=== PATIENT | female | born 1960 | race Caucasian/White ===

== ENCOUNTER 2020-12-15 10:10 | Outpatient (REF) | payer BC, OTHER, SELFPAY ==
--- NOTE | ~2020-12-15 | MM_ITS ---
EXAMINATION: MM SCREENING DIGITAL BREAST TOMOSYNTHESIS, BILATERAL CLINICAL INFORMATION: Screening. Asymptomatic. The lifetime risk of breast cancer based on the Tyrer-Cuzick Model is 6%. COMPARISON: Mammography: 11/12/2019, 11/06/2018, 08/28/2017 TECHNIQUE: Digital breast tomosynthesis is performed in both the craniocaudal and mediolateral oblique views along with computer-aided detection (CAD). Synthesized 2D images are generated from the tomosynthesis. FINDINGS: There are scattered areas of fibroglandular density (ACR BI-RADS breast composition Category b). There are no significant masses, abnormal calcifications, or other abnormalities. The axilla and skin contours are unremarkable. No significant changes from prior exams. MM/MM tomosynthesis screening BI IMPRESSION: No mammographic evidence of malignancy. ASSESSMENT: BI-RADS 1: Negative RECOMMENDATION: Routine annual mammography screening. This patient's information was entered into a reminder system with a target due date for their next mammogram.
== END 2020-12-15 10:11 | disposition home or self-care (01) ==
LOC: HO.MAMMO 10:10
PROVIDERS: Visit Provider Nurse Practitioner Family
DX: Z12.31 Encounter for screening mammogram for malignant neoplasm of breast (principal)
CPT/HCPCS: 77063; 77067

== ENCOUNTER 2022-01-04 09:48 | Outpatient (REF) | payer OTHER, SELFPAY ==
--- NOTE | ~2022-01-04 | MM_ITS ---
EXAMINATION: MM SCREENING DIGITAL BREAST TOMOSYNTHESIS, BILATERAL CLINICAL INFORMATION: Screening. Asymptomatic. COMPARISON: Mammography: 12/15/2020, 11/12/2019, 11/06/2018 TECHNIQUE: Digital breast tomosynthesis is performed in both the craniocaudal and mediolateral oblique views along with computer-aided detection (CAD). Synthesized 2D images are generated from the tomosynthesis. Additional bilateral CC views are provided. FINDINGS: There are scattered areas of fibroglandular density (ACR BI-RADS breast composition Category b). Parenchymal pattern is similar to prior studies and there is no interval mass or architectural abnormality or developing density. There are bilateral circumferential dermal calcifications or ointment artifact at the base of the nipples. There are no abnormal calcifications in the breast. The axilla are and skin contours are unremarkable. No significant changes. MM/MM tomosynthesis screening BI IMPRESSION: No mammographic evidence of malignancy. ASSESSMENT: BI-RADS 2: Benign RECOMMENDATION: Routine annual mammography screening. This patient's information was entered into a reminder system with a target due date for their next mammogram.
== END 2022-01-04 09:49 | disposition home or self-care (01) ==
LOC: HO.MAMMO 09:48
PROVIDERS: PCP Nurse Practitioner Family; Visit Provider Nurse Practitioner Family
DX: Z12.31 Encounter for screening mammogram for malignant neoplasm of breast (principal)
CPT/HCPCS: 77063; 77067

== ENCOUNTER 2022-04-13 16:52 | Emergency (ER) | payer OTHER, SELFPAY ==
[2022-04-13 17:05] VITALS: BP 139/71; PULSE 115; RESP 18; TEMP 36.7; O2SAT 99; BMI 22.4
--- NOTE | 2022-04-13 17:06 | ED.GENADULT ---
HPI - General Adult General Chief complaint: Nausea/Vomiting/Diarrhea <SHAHIDA Vega - Last Filed: 04/13/22 17:08> Stated complaint: diabetic/ vomiting <SHAHIDA Vega - Last Filed: 04/13/22 17:08> Time Seen by Provider: 04/13/22 19:54 <SHAHIDA Vega - Last Filed: 04/13/22 17:08> Source: patient and family (Daughter) <Corinne Haney MD - Last Filed: 04/13/22 23:01> Mode of arrival: ambulatory <Corinne Haney MD - Last Filed: 04/13/22 23:01> Limitations: no limitations <Corinne Haney MD - Last Filed: 04/13/22 23:01> History of Present Illness HPI narrative: 61-year-old female history of insulin-dependent diabetes type 1 controlled with insulin Lantus at nighttime and Humalog as sliding scale. Patient sometimes after she eats feels the food stuck in her lower esophagus then she started to throw up patient has vomited repeatedly today with multiple bowel movement was formed stool and normal color as reported by the patient, patient emergency room found to be hyperglycemic patient's symptoms started to improve while she was in the waiting room and fluid was found no more nausea or vomiting, no abdominal pain. <Corinne Haney MD - Last Filed: 04/13/22 23:01> Related Data Allergies/adverse reactions: Allergies Allergy/AdvReac Type Severity Reaction Status Date / Time No Known Allergies Allergy Verified 04/13/22 17:12 <SHAHIDA Vega - Last Filed: 04/13/22 17:08> Review of Systems Review of Systems: All other systems are reviewed and are negative Constitutional: Reports as per HPI and Reports no additional constitutional complaints Eyes: Reports as per HPI and Reports no additional eye complaints Reports system reviewed and no additional complaints, except as documented Cardiovascular: Reports as per HPI and Reports no additional cardiovascular complaints Respiratory: Reports as per HPI and Reports no additional respiratory complaints Gastrointestinal: Reports as per HPI and Reports no additional gastrointestinal complaints Genitourinary: Reports no additional female genitourinary complaints Musculoskeletal: Reports no additional musculoskeletal complaints Skin/Breast: Reports system reviewed and no additional complaints, except as docu Psychiatric: Reports no additional psychiatric complaints Endocrine: Reports no additional endocrine complaints Hematologic/Lymphatic: Reports no additional hematologic/lymphatic complaints Allergic/Immunologic: Reports no additional allergic/immunologic complaints Reports system reviewed and no additional complaints, except as documented and Reports Abnormal speech present <Corinne Haney MD - Last Filed: 04/13/22 23:01> [facility] Social History Social History: Social History Alcohol intake: current Alcohol intake frequency: holidays/special occasions only Smoked in Last 30 Days: No Use of substances other than those prescribed or required for medical reasons: No Advance Directives: No Advance Directives Information Provided: No <SHAHIDA Vega - Last Filed: 04/13/22 17:08> Physical Exam ED Vital Signs: Vital Signs - 24 hr 04/13/22 17:05 Temperature 98.1 F Pulse Rate 115 H Respiratory Rate 18 Blood Pressure 139/71 Pulse Oximetry 99 Oxygen Delivery Method Room Air BMI result Body Mass Index 22.4 <SHAHIDA Vega - Last Filed: 04/13/22 17:08> Vital Signs - 24 hr 04/13/22 17:05 Temperature 98.1 F Pulse Rate 115 H Respiratory Rate 18 Blood Pressure 139/71 Pulse Oximetry 99 Oxygen Delivery Method Room Air BMI result Body Mass Index 22.4 Vital signs have been reviewed as appeared to be correct. Blood pressure normal. Heart rate normal. Respiration rate normal. Temperature normal. Oxygen saturation normal. <Corinne Haney MD - Last Filed: 04/13/22 23:01> Appearance: Alert. Oriented X3. No acute distress. Head: Normal external exam. Normocephalic. Atraumatic. No Bower signs noted. No raccoon eyes noted Eyes: PERRLA. EOMI. Conjunctiva and sclera normal. Eyelids normal. ENT: TM's Normal. Pharynx normal. Uvula midline. Moist mucous membranes. No trismus noted. No drooling noted. No muffled voice noted. Neck: Normal inspection. Neck supple. FROM. No adenopathy. Thyroid Normal. No meningeal signs. No neck mass noted. CVS: Normal heart rate and rhythm. Heart sound normal. No murmurs noted. Pulses normal throughout. Respiratory: No respiratory distress. Painless inspiration. Breath sounds normal. No wheezes/rales/rhonchi noted. Chest nontender. No accessory muscle usage noted or decreased air movement noted. Abdomen: Soft and nontender. Bowel sounds normal in all 4 quadrants. No distention noted. No organomegaly noted. No visible injury noted. Back: No CVA tenderness. Full range of motion noted. Skin: Skin warm and dry. Normal skin color. Normal skin turgor. No rashes/lesions/lacerations noted. Extremities: No lower extremity edema. Extremities exhibit normal range of motion. Extremities nontender. Neuro: Oriented X 3. Cranial nerve exam: II-XII are grossly intact No motor deficit. No sensory deficit. Reflexes normal. <Corinne Haney MD - Last Filed: 04/13/22 23:01> Course Course Course Narrative: This is an RME: Additional HPI, ROS, PE not included below will be deferred to primary provider. This is a 63 female history of diabetes presenting the emergency department with nausea, vomiting, frequent bowel habits x1 day. Has had at least 10 episodes of vomiting, reports bilious vomiting. Unable to keep anything down. No known sick contacts. Patient reporting chills however denies fevers. Denies chest pain, shortness of breath. Patient does have a history of diabetic ketoacidosis. Physical examination benign Plan labs, urine, COVID, influenza. Will obtain VBG in acetone as patient does have a history of diabetic ketoacidosis <SHAHIDA Vega - Last Filed: 04/13/22 17:08> Reevaluation(s) Reevaluation #1: 61-year-old female type 1 insulin-dependent diabetes came in with failing food stuck in her epigastric area followed by vomiting at home, had elevated blood sugar with no DKA, hyperglycemia was improved by 2 L of IV fluids given in the ED no insulin was administrated, patient's symptoms improved no nausea, no vomiting able to tolerate p.o. intake. Patient will need GI evaluation for diabetic gastric paresis. <Corinne Haney MD - Last Filed: 04/13/22 23:01> Medications Administered Discontinued Medications Generic Name Dose Route Start Last Admin Trade Name Freq PRN Reason Stop Dose Admin Sodium Chloride 1,000 mls @ 999 mls/hr 04/13/22 17:15 04/13/22 19:51 Ns IV 04/13/22 18:15 999 mls/hr .Q1H1M ROLA Administration Sodium Chloride 1,000 mls @ 999 mls/hr 04/13/22 20:15 04/13/22 20:47 Ns IV 04/13/22 21:15 999 mls/hr .Q1H1M ONE Administration Insulin Human Regular 10 unit 04/13/22 20:15 04/13/22 20:48 Insulin Regular, Human 100 Unit/Ml 3 Ml Vial IVPUSH 04/13/22 20:16 Not Given ONCE ONE Ondansetron HCl 4 mg 04/13/22 17:06 04/13/22 19:38 Ondansetron Odt 4 Mg Tab.Rapdis TRANSLINGU 04/13/22 17:07 4 mg ONCE ONE Administration <SHAHIDA Vega - Last Filed: 04/13/22 17:08> Medications Administered Discontinued Medications Generic Name Dose Route Start Last Admin Trade Name Seeq PRN Reason Stop Dose Admin Sodium Chloride 1,000 mls @ 999 mls/hr 04/13/22 17:15 04/13/22 19:51 Ns IV 04/13/22 18:15 999 mls/hr .Q1H1M ROLA Administration Sodium Chloride 1,000 mls @ 999 mls/hr 04/13/22 20:15 04/13/22 20:47 Ns IV 04/13/22 21:15 999 mls/hr .Q1H1M ONE Administration Insulin Human Regular 10 unit 04/13/22 20:15 04/13/22 20:48 Insulin Regular, Human 100 Unit/Ml 3 Ml Vial IVPUSH 04/13/22 20:16 Not Given ONCE ONE Ondansetron HCl 4 mg 04/13/22 17:06 04/13/22 19:38 Ondansetron Odt 4 Mg Tab.Rapdis TRANSLINGU 04/13/22 17:07 4 mg ONCE ONE Administration <Corinne Haney MD - Last Filed: 04/13/22 23:01> Medical Decision Making Differential Diagnosis Differential Diagnoses: The differential diagnosis associated with the presentation includes (Hyperglycemia, DKA, ACS, diabetic gastroparesis, dehydration, electrolyte disturbance, UTI.) <Corinne Haney MD - Last Filed: 04/13/22 23:01> Lab Data [facility] Lab Attestation statement: I reviewed the patient's lab results. <Corinne Haney MD - Last Filed: 04/13/22 23:01> Result Diagrams: 04/13/22 19:04 04/13/22 19:04 <SHAHIDA Vega - Last Filed: 04/13/22 17:08> Labs: Lab Results 04/13/22 04/13/22 04/13/22 Range/Units 19:04 19:04 19:04 WBC 15.2 H (4.8-10.8) X10*3/uL RBC 4.85 (4.20-5.50) X10*6/uL Hgb 14.7 (12.0-16.0) g/dl Hct 42.3 (37.0-47.0) % MCV 87.2 (80.0-98.0) fL MCH 30.3 (27.0-33.0) pg MCHC 34.8 (31.0-35.0) g/dl RDW 11.5 (11.0-16.0) % Plt Count 357 (160-400) X10*3/uL MPV 9.7 (9.4-12.3) fL Immature Gran % (Auto) 0.5 H (0.0-0.4) % Neut % (Auto) 89.0 H (45-73) % Lymph % (Auto) 6.6 L (20-40) % [place] % (Auto) 3.6 (2-11) % Eos % (Auto) 0.0 (0-4) % Baso % (Auto) 0.3 (0-2) % Lymph # (Auto) 1.0 L (1.2-4.9) X10*3/uL [place] # (Auto) 0.6 (0.1-1.2) X10*3/uL Eos # (Auto) 0.0 (0.0-0.4) X10*3/uL Baso # (Auto) 0.1 (0.0-0.2) X10*3/uL Abs Immat Gran (auto) 0.07 H (0.00-0.03) X10*3/uL Absolute Neuts (auto) 13.5 H (2.0-8.3) x10*3/uL Absolute Nucleated RBC 0.000 (0.0-0.012) X10*3/uL Nucleated RBC % (auto) 0.0 (0.0-0.2) /100WBC VBG pH (7.32-7.43) VBG pCO2 mmHg VBG pO2 mmHg VBG HCO3 (22-26) mmol/L VBG O2 Saturation % VBG Base Excess mmol/L Sodium 141 (135-145) mmol/L Potassium 4.7 (3.3-5.1) mmol/L Chloride 98 (96-108) mmol/L Carbon Dioxide 25 (22-29) mmol/L Anion Gap 23 H (12-20) BUN 17 H (9-16) mg/dL Creatinine 1.14 (0.5-1.4) mg/dL Estim Creat Clear Calc 39.5 Estimated GFR 49 POC Glucose (60-115) mg/dL Random Glucose 360 H* (60-115) mg/dL Calcium 10.2 (8.4-10.2) mg/dL Magnesium 1.9 (1.6-2.6) mg/dL Total Bilirubin 0.7 (0.0-1.0) mg/dL AST 31 (5-31) U/L ALT 38 H (0-31) U/L Alkaline Phosphatase 103 (39-117) U/L Troponin I High Sens (<3.5-17.0) ng/L Total Protein 7.5 (6.5-8.0) g/dL Albumin 4.7 (3.5-5.0) g/dL Urine Color Urine Appearance Urine pH (5.0-9.0) Ur Specific [place] (1.005-1.025) Urine Protein (Neg-Trace) mg/dL Urine Glucose (UA) (Negative) mg/dL Urine Ketones (Negative) mg/dL Urine Blood (Negative) Urine Nitrite (Negative) Ur Leukocyte Esterase (Negative) Urine RBC (0-2) /HPF Urine WBC (0-5) /HPF Ur Squamous Epith Cells (0-2) /HPF Urine Bacteria (None Seen) Hyaline Casts (0-2) /LPF Acetone, Qual (Negative) COVID-19 (RAFFAELE) (Negative) COVID-19 Clin Com Influenza Type A (REINALDO) Negative (Negative) Influenza Type B (REINALDO) Negative (Negative) Influenza A & B Note See Note 04/13/22 04/13/22 04/13/22 Range/Units 19:04 19:04 19:12 WBC (4.8-10.8) X10*3/uL RBC (4.20-5.50) X10*6/uL Hgb (12.0-16.0) g/dl Hct (37.0-47.0) % MCV (80.0-98.0) fL MCH (27.0-33.0) pg MCHC (31.0-35.0) g/dl RDW (11.0-16.0) % Plt Count (160-400) X10*3/uL MPV (9.4-12.3) fL Immature Gran % (Auto) (0.0-0.4) % Neut % (Auto) (45-73) % Lymph % (Auto) (20-40) % [place] % (Auto) (2-11) % Eos % (Auto) (0-4) % Baso % (Auto) (0-2) % Lymph # (Auto) (1.2-4.9) X10*3/uL [place] # (Auto) (0.1-1.2) X10*3/uL Eos # (Auto) (0.0-0.4) X10*3/uL Baso # (Auto) (0.0-0.2) X10*3/uL Abs Immat Gran (auto) (0.00-0.03) X10*3/uL Absolute Neuts (auto) (2.0-8.3) x10*3/uL Absolute Nucleated RBC (0.0-0.012) X10*3/uL Nucleated RBC % (auto) (0.0-0.2) /100WBC VBG pH 7.35 (7.32-7.43) VBG pCO2 42 mmHg VBG pO2 40 mmHg VBG HCO3 23 (22-26) mmol/L VBG O2 Saturation 62.0 % VBG Base Excess -1.7 mmol/L Sodium (135-145) mmol/L Potassium (3.3-5.1) mmol/L Chloride (96-108) mmol/L Carbon Dioxide (22-29) mmol/L Anion Gap (12-20) BUN (9-16) mg/dL Creatinine (0.5-1.4) mg/dL Estim Creat Clear Calc Estimated GFR POC Glucose (60-115) mg/dL Random Glucose (60-115) mg/dL Calcium (8.4-10.2) mg/dL Magnesium (1.6-2.6) mg/dL Total Bilirubin (0.0-1.0) mg/dL AST (5-31) U/L ALT (0-31) U/L Alkaline Phosphatase (39-117) U/L Troponin I High Sens (<3.5-17.0) ng/L Total Protein (6.5-8.0) g/dL Albumin (3.5-5.0) g/dL Urine Color Urine Appearance Urine pH (5.0-9.0) Ur Specific [place] (1.005-1.025) Urine Protein (Neg-Trace) mg/dL Urine Glucose (UA) (Negative) mg/dL Urine Ketones (Negative) mg/dL Urine Blood (Negative) Urine Nitrite (Negative) Ur Leukocyte Esterase (Negative) Urine RBC (0-2) /HPF Urine WBC (0-5) /HPF Ur Squamous Epith Cells (0-2) /HPF Urine Bacteria (None Seen) Hyaline Casts (0-2) /LPF Acetone, Qual Small H (Negative) COVID-19 (RAFFAELE) Negative (Negative) COVID-19 Clin Com See Note Influenza Type A (REINALDO) (Negative) Influenza Type B (REINALDO) (Negative) Influenza A & B Note 04/13/22 04/13/22 04/13/22 Range/Units 19:59 20:41 20:42 WBC (4.8-10.8) X10*3/uL RBC (4.20-5.50) X10*6/uL Hgb (12.0-16.0) g/dl Hct (37.0-47.0) % MCV (80.0-98.0) fL MCH (27.0-33.0) pg MCHC (31.0-35.0) g/dl RDW (11.0-16.0) % Plt Count (160-400) X10*3/uL MPV (9.4-12.3) fL Immature Gran % (Auto) (0.0-0.4) % Neut % (Auto) (45-73) % Lymph % (Auto) (20-40) % [place] % (Auto) (2-11) % Eos % (Auto) (0-4) % Baso % (Auto) (0-2) % Lymph # (Auto) (1.2-4.9) X10*3/uL [place] # (Auto) (0.1-1.2) X10*3/uL Eos # (Auto) (0.0-0.4) X10*3/uL Baso # (Auto) (0.0-0.2) X10*3/uL Abs Immat Gran (auto) (0.00-0.03) X10*3/uL Absolute Neuts (auto) (2.0-8.3) x10*3/uL Absolute Nucleated RBC (0.0-0.012) X10*3/uL Nucleated RBC % (auto) (0.0-0.2) /100WBC VBG pH (7.32-7.43) VBG pCO2 mmHg VBG pO2 mmHg VBG HCO3 (22-26) mmol/L VBG O2 Saturation % VBG Base Excess mmol/L Sodium (135-145) mmol/L Potassium (3.3-5.1) mmol/L Chloride (96-108) mmol/L Carbon Dioxide (22-29) mmol/L Anion Gap (12-20) BUN (9-16) mg/dL Creatinine (0.5-1.4) mg/dL Estim Creat Clear Calc Estimated GFR POC Glucose 261 H (60-115) mg/dL Random Glucose (60-115) mg/dL Calcium (8.4-10.2) mg/dL Magnesium (1.6-2.6) mg/dL Total Bilirubin (0.0-1.0) mg/dL AST (5-31) U/L ALT (0-31) U/L Alkaline Phosphatase (39-117) U/L Troponin I High Sens < 3.5 (<3.5-17.0) ng/L Total Protein (6.5-8.0) g/dL Albumin (3.5-5.0) g/dL Urine Color Yellow Urine Appearance Clear Urine pH 5.0 (5.0-9.0) Ur Specific [place] >= 1.030 H (1.005-1.025) Urine Protein Negative (Neg-Trace) mg/dL Urine Glucose (UA) >=1000 H (Negative) mg/dL Urine Ketones 80 (Negative) mg/dL Urine Blood Negative (Negative) Urine Nitrite Negative (Negative) Ur Leukocyte Esterase Negative (Negative) Urine RBC 3-5 H (0-2) /HPF Urine WBC 0-5 (0-5) /HPF Ur Squamous Epith Cells 0-2 (0-2) /HPF Urine Bacteria None Seen (None Seen) Hyaline Casts 0-2 (0-2) /LPF Acetone, Qual (Negative) COVID-19 (RAFFAELE) (Negative) COVID-19 Clin Com Influenza Type A (REINALDO) (Negative) Influenza Type B (REINALDO) (Negative) Influenza A & B Note 04/13/22 Range/Units 22:00 WBC (4.8-10.8) X10*3/uL RBC (4.20-5.50) X10*6/uL Hgb (12.0-16.0) g/dl Hct (37.0-47.0) % MCV (80.0-98.0) fL MCH (27.0-33.0) pg MCHC (31.0-35.0) g/dl RDW (11.0-16.0) % Plt Count (160-400) X10*3/uL MPV (9.4-12.3) fL Immature Gran % (Auto) (0.0-0.4) % Neut % (Auto) (45-73) % Lymph % (Auto) (20-40) % [place] % (Auto) (2-11) % Eos % (Auto) (0-4) % Baso % (Auto) (0-2) % Lymph # (Auto) (1.2-4.9) X10*3/uL [place] # (Auto) (0.1-1.2) X10*3/uL Eos # (Auto) (0.0-0.4) X10*3/uL Baso # (Auto) (0.0-0.2) X10*3/uL Abs Immat Gran (auto) (0.00-0.03) X10*3/uL Absolute Neuts (auto) (2.0-8.3) x10*3/uL Absolute Nucleated RBC (0.0-0.012) X10*3/uL Nucleated RBC % (auto) (0.0-0.2) /100WBC VBG pH (7.32-7.43) VBG pCO2 mmHg VBG pO2 mmHg VBG HCO3 (22-26) mmol/L VBG O2 Saturation % VBG Base Excess mmol/L Sodium 139 (135-145) mmol/L Potassium 3.9 (3.3-5.1) mmol/L Chloride 104 (96-108) mmol/L Carbon Dioxide 23 (22-29) mmol/L Anion Gap 16 (12-20) BUN 12 (9-16) mg/dL Creatinine 0.74 (0.5-1.4) mg/dL Estim Creat Clear Calc 60.9 Estimated GFR > 60 POC Glucose (60-115) mg/dL Random Glucose 214 H (60-115) mg/dL Calcium 8.1 L D (8.4-10.2) mg/dL Magnesium (1.6-2.6) mg/dL Total Bilirubin (0.0-1.0) mg/dL AST (5-31) U/L ALT (0-31) U/L Alkaline Phosphatase (39-117) U/L Troponin I High Sens (<3.5-17.0) ng/L Total Protein (6.5-8.0) g/dL Albumin (3.5-5.0) g/dL Urine Color Urine Appearance Urine pH (5.0-9.0) Ur Specific [place] (1.005-1.025) Urine Protein (Neg-Trace) mg/dL Urine Glucose (UA) (Negative) mg/dL Urine Ketones (Negative) mg/dL Urine Blood (Negative) Urine Nitrite (Negative) Ur Leukocyte Esterase (Negative) Urine RBC (0-2) /HPF Urine WBC (0-5) /HPF Ur Squamous Epith Cells (0-2) /HPF Urine Bacteria (None Seen) Hyaline Casts (0-2) /LPF Acetone, Qual Small H (Negative) COVID-19 (RAFFAELE) (Negative) COVID-19 Clin Com Influenza Type A (REINALDO) (Negative) Influenza Type B (REINALDO) (Negative) Influenza A & B Note <SHAHIDA Vega - Last Filed: 04/13/22 17:08> Lab Results 04/13/22 04/13/22 04/13/22 Range/Units 19:04 19:04 19:04 WBC 15.2 H (4.8-10.8) X10*3/uL RBC 4.85 (4.20-5.50) X10*6/uL Hgb 14.7 (12.0-16.0) g/dl Hct 42.3 (37.0-47.0) % MCV 87.2 (80.0-98.0) fL MCH 30.3 (27.0-33.0) pg MCHC 34.8 (31.0-35.0) g/dl RDW 11.5 (11.0-16.0) % Plt Count 357 (160-400) X10*3/uL MPV 9.7 (9.4-12.3) fL Immature Gran % (Auto) 0.5 H (0.0-0.4) % Neut % (Auto) 89.0 H (45-73) % Lymph % (Auto) 6.6 L (20-40) % [place] % (Auto) 3.6 (2-11) % Eos % (Auto) 0.0 (0-4) % Baso % (Auto) 0.3 (0-2) % Lymph # (Auto) 1.0 L (1.2-4.9) X10*3/uL [place] # (Auto) 0.6 (0.1-1.2) X10*3/uL Eos # (Auto) 0.0 (0.0-0.4) X10*3/uL Baso # (Auto) 0.1 (0.0-0.2) X10*3/uL Abs Immat Gran (auto) 0.07 H (0.00-0.03) X10*3/uL Absolute Neuts (auto) 13.5 H (2.0-8.3) x10*3/uL Absolute Nucleated RBC 0.000 (0.0-0.012) X10*3/uL Nucleated RBC % (auto) 0.0 (0.0-0.2) /100WBC VBG pH (7.32-7.43) VBG pCO2 mmHg VBG pO2 mmHg VBG HCO3 (22-26) mmol/L VBG O2 Saturation % VBG Base Excess mmol/L Sodium 141 (135-145) mmol/L Potassium 4.7 (3.3-5.1) mmol/L Chloride 98 (96-108) mmol/L Carbon Dioxide 25 (22-29) mmol/L Anion Gap 23 H (12-20) BUN 17 H (9-16) mg/dL Creatinine 1.14 (0.5-1.4) mg/dL Estim Creat Clear Calc 39.5 Estimated GFR 49 POC Glucose (60-115) mg/dL Random Glucose 360 H* (60-115) mg/dL Calcium 10.2 (8.4-10.2) mg/dL Magnesium 1.9 (1.6-2.6) mg/dL Total Bilirubin 0.7 (0.0-1.0) mg/dL AST 31 (5-31) U/L ALT 38 H (0-31) U/L Alkaline Phosphatase 103 (39-117) U/L Troponin I High Sens (<3.5-17.0) ng/L Total Protein 7.5 (6.5-8.0) g/dL Albumin 4.7 (3.5-5.0) g/dL Urine Color Urine Appearance Urine pH (5.0-9.0) Ur Specific [place] (1.005-1.025) Urine Protein (Neg-Trace) mg/dL Urine Glucose (UA) (Negative) mg/dL Urine Ketones (Negative) mg/dL Urine Blood (Negative) Urine Nitrite (Negative) Ur Leukocyte Esterase (Negative) Urine RBC (0-2) /HPF Urine WBC (0-5) /HPF Ur Squamous Epith Cells (0-2) /HPF Urine Bacteria (None Seen) Hyaline Casts (0-2) /LPF Acetone, Qual (Negative) COVID-19 (RAFFAELE) (Negative) COVID-19 Clin Com Influenza Type A (REINALDO) Negative (Negative) Influenza Type B (REINALDO) Negative (Negative) Influenza A & B Note See Note 04/13/22 04/13/22 04/13/22 Range/Units 19:04 19:04 19:12 WBC (4.8-10.8) X10*3/uL RBC (4.20-5.50) X10*6/uL Hgb (12.0-16.0) g/dl Hct (37.0-47.0) % MCV (80.0-98.0) fL MCH (27.0-33.0) pg MCHC (31.0-35.0) g/dl RDW (11.0-16.0) % Plt Count (160-400) X10*3/uL MPV (9.4-12.3) fL Immature Gran % (Auto) (0.0-0.4) % Neut % (Auto) (45-73) % Lymph % (Auto) (20-40) % [place] % (Auto) (2-11) % Eos % (Auto) (0-4) % Baso % (Auto) (0-2) % Lymph # (Auto) (1.2-4.9) X10*3/uL [place] # (Auto) (0.1-1.2) X10*3/uL Eos # (Auto) (0.0-0.4) X10*3/uL Baso # (Auto) (0.0-0.2) X10*3/uL Abs Immat Gran (auto) (0.00-0.03) X10*3/uL Absolute Neuts (auto) (2.0-8.3) x10*3/uL Absolute Nucleated RBC (0.0-0.012) X10*3/uL Nucleated RBC % (auto) (0.0-0.2) /100WBC VBG pH 7.35 (7.32-7.43) VBG pCO2 42 mmHg VBG pO2 40 mmHg VBG HCO3 23 (22-26) mmol/L VBG O2 Saturation 62.0 % VBG Base Excess -1.7 mmol/L Sodium (135-145) mmol/L Potassium (3.3-5.1) mmol/L Chloride (96-108) mmol/L Carbon Dioxide (22-29) mmol/L Anion Gap (12-20) BUN (9-16) mg/dL Creatinine (0.5-1.4) mg/dL Estim Creat Clear Calc Estimated GFR POC Glucose (60-115) mg/dL Random Glucose (60-115) mg/dL Calcium (8.4-10.2) mg/dL Magnesium (1.6-2.6) mg/dL Total Bilirubin (0.0-1.0) mg/dL AST (5-31) U/L ALT (0-31) U/L Alkaline Phosphatase (39-117) U/L Troponin I High Sens (<3.5-17.0) ng/L Total Protein (6.5-8.0) g/dL Albumin (3.5-5.0) g/dL Urine Color Urine Appearance Urine pH (5.0-9.0) Ur Specific [place] (1.005-1.025) Urine Protein (Neg-Trace) mg/dL Urine Glucose (UA) (Negative) mg/dL Urine Ketones (Negative) mg/dL Urine Blood (Negative) Urine Nitrite (Negative) Ur Leukocyte Esterase (Negative) Urine RBC (0-2) /HPF Urine WBC (0-5) /HPF Ur Squamous Epith Cells (0-2) /HPF Urine Bacteria (None Seen) Hyaline Casts (0-2) /LPF Acetone, Qual Small H (Negative) COVID-19 (RAFFAELE) Negative (Negative) COVID-19 Clin Com See Note Influenza Type A (REINALDO) (Negative) Influenza Type B (REINALDO) (Negative) Influenza A & B Note 04/13/22 04/13/22 04/13/22 Range/Units 19:59 20:41 20:42 WBC (4.8-10.8) X10*3/uL RBC (4.20-5.50) X10*6/uL Hgb (12.0-16.0) g/dl Hct (37.0-47.0) % MCV (80.0-98.0) fL MCH (27.0-33.0) pg MCHC (31.0-35.0) g/dl RDW (11.0-16.0) % Plt Count (160-400) X10*3/uL MPV (9.4-12.3) fL Immature Gran % (Auto) (0.0-0.4) % Neut % (Auto) (45-73) % Lymph % (Auto) (20-40) % [place] % (Auto) (2-11) % Eos % (Auto) (0-4) % Baso % (Auto) (0-2) % Lymph # (Auto) (1.2-4.9) X10*3/uL [place] # (Auto) (0.1-1.2) X10*3/uL Eos # (Auto) (0.0-0.4) X10*3/uL Baso # (Auto) (0.0-0.2) X10*3/uL Abs Immat Gran (auto) (0.00-0.03) X10*3/uL Absolute Neuts (auto) (2.0-8.3) x10*3/uL Absolute Nucleated RBC (0.0-0.012) X10*3/uL Nucleated RBC % (auto) (0.0-0.2) /100WBC VBG pH (7.32-7.43) VBG pCO2 mmHg VBG pO2 mmHg VBG HCO3 (22-26) mmol/L VBG O2 Saturation % VBG Base Excess mmol/L Sodium (135-145) mmol/L Potassium (3.3-5.1) mmol/L Chloride (96-108) mmol/L Carbon Dioxide (22-29) mmol/L Anion Gap (12-20) BUN (9-16) mg/dL Creatinine (0.5-1.4) mg/dL Estim Creat Clear Calc Estimated GFR POC Glucose 261 H (60-115) mg/dL Random Glucose (60-115) mg/dL Calcium (8.4-10.2) mg/dL Magnesium (1.6-2.6) mg/dL Total Bilirubin (0.0-1.0) mg/dL AST (5-31) U/L ALT (0-31) U/L Alkaline Phosphatase (39-117) U/L Troponin I High Sens < 3.5 (<3.5-17.0) ng/L Total Protein (6.5-8.0) g/dL Albumin (3.5-5.0) g/dL Urine Color Yellow Urine Appearance Clear Urine pH 5.0 (5.0-9.0) Ur Specific [place] >= 1.030 H (1.005-1.025) Urine Protein Negative (Neg-Trace) mg/dL Urine Glucose (UA) >=1000 H (Negative) mg/dL Urine Ketones 80 (Negative) mg/dL Urine Blood Negative (Negative) Urine Nitrite Negative (Negative) Ur Leukocyte Esterase Negative (Negative) Urine RBC 3-5 H (0-2) /HPF Urine WBC 0-5 (0-5) /HPF Ur Squamous Epith Cells 0-2 (0-2) /HPF Urine Bacteria None Seen (None Seen) Hyaline Casts 0-2 (0-2) /LPF Acetone, Qual (Negative) COVID-19 (RAFFAELE) (Negative) COVID-19 Clin Com Influenza Type A (REINALDO) (Negative) Influenza Type B (REINALDO) (Negative) Influenza A & B Note 04/13/22 Range/Units 22:00 WBC (4.8-10.8) X10*3/uL RBC (4.20-5.50) X10*6/uL Hgb (12.0-16.0) g/dl Hct (37.0-47.0) % MCV (80.0-98.0) fL MCH (27.0-33.0) pg MCHC (31.0-35.0) g/dl RDW (11.0-16.0) % Plt Count (160-400) X10*3/uL MPV (9.4-12.3) fL Immature Gran % (Auto) (0.0-0.4) % Neut % (Auto) (45-73) % Lymph % (Auto) (20-40) % [place] % (Auto) (2-11) % Eos % (Auto) (0-4) % Baso % (Auto) (0-2) % Lymph # (Auto) (1.2-4.9) X10*3/uL [place] # (Auto) (0.1-1.2) X10*3/uL Eos # (Auto) (0.0-0.4) X10*3/uL Baso # (Auto) (0.0-0.2) X10*3/uL Abs Immat Gran (auto) (0.00-0.03) X10*3/uL Absolute Neuts (auto) (2.0-8.3) x10*3/uL Absolute Nucleated RBC (0.0-0.012) X10*3/uL Nucleated RBC % (auto) (0.0-0.2) /100WBC VBG pH (7.32-7.43) VBG pCO2 mmHg VBG pO2 mmHg VBG HCO3 (22-26) mmol/L VBG O2 Saturation % VBG Base Excess mmol/L Sodium 139 (135-145) mmol/L Potassium 3.9 (3.3-5.1) mmol/L Chloride 104 (96-108) mmol/L Carbon Dioxide 23 (22-29) mmol/L Anion Gap 16 (12-20) BUN 12 (9-16) mg/dL Creatinine 0.74 (0.5-1.4) mg/dL Estim Creat Clear Calc 60.9 Estimated GFR > 60 POC Glucose (60-115) mg/dL Random Glucose 214 H (60-115) mg/dL Calcium 8.1 L D (8.4-10.2) mg/dL Magnesium (1.6-2.6) mg/dL Total Bilirubin (0.0-1.0) mg/dL AST (5-31) U/L ALT (0-31) U/L Alkaline Phosphatase (39-117) U/L Troponin I High Sens (<3.5-17.0) ng/L Total Protein (6.5-8.0) g/dL Albumin (3.5-5.0) g/dL Urine Color Urine Appearance Urine pH (5.0-9.0) Ur Specific [place] (1.005-1.025) Urine Protein (Neg-Trace) mg/dL Urine Glucose (UA) (Negative) mg/dL Urine Ketones (Negative) mg/dL Urine Blood (Negative) Urine Nitrite (Negative) Ur Leukocyte Esterase (Negative) Urine RBC (0-2) /HPF Urine WBC (0-5) /HPF Ur Squamous Epith Cells (0-2) /HPF Urine Bacteria (None Seen) Hyaline Casts (0-2) /LPF Acetone, Qual Small H (Negative) COVID-19 (RAFFAELE) (Negative) COVID-19 Clin Com Influenza Type A (REINALDO) (Negative) Influenza Type B (REINALDO) (Negative) Influenza A & B Note <Corinne Haney MD - Last Filed: 04/13/22 23:01> Chronic Conditions Patient?s care impacted by: Diabetes <Corinne Haney MD - Last Filed: 04/13/22 23:01> Discharge Plan Discharge Clinical Impression: Vomiting, Acute hyperglycemia <SHAHIDA Vega - Last Filed: 04/13/22 17:08> Patient Disposition: Home, Self-Care <SHAHIDA Vega - Last Filed: 04/13/22 17:08> Instructions: Diabetic Gastroparesis (DC) <SHAHIDA Vega - Last Filed: 04/13/22 17:08> Referrals: Jaymie Mireles NP [Primary Care Provider] - Elli Castillo MD [Physician] - <SHAHIDA Vega - Last Filed: 04/13/22 17:08>
[2022-04-13 19:17] LABS: Venous Blood Gas Refer to POC result
[2022-04-13 19:19] LABS: VBG Base Excess -1.7 mmol/L; VBG HCO3 23 mmol/L (22-26); VBG pCO2 42 mmHg; VBG pH 7.35 (7.32-7.43); VBG pO2 40 mmHg
[2022-04-13 19:26] LABS: Acetone, serum QL Small (Negative)
[2022-04-13 19:27] LABS: Basophils Absolute Auto 0.1 X10*3/uL (0.0-0.2); Basophils Percent Auto 0.3 % (0-2); Hematocrit 42.3 % (37.0-47.0); Hemoglobin 14.7 g/dl (12.0-16.0); Imm Gran Abs Auto 0.07 X10*3/uL (0.00-0.03); Imm Gran Pct Auto 0.5 % (0.0-0.4); Lymphocytes Percent Auto 6.6 % (20-40); MANUAL DIFF FLAG NO; Mean Corpuscular HGB Conc 34.8 g/dl (31.0-35.0); Mean Corpuscular Hemoglobin 30.3 pg (27.0-33.0); Mean Corpuscular Volume 87.2 fL (80.0-98.0); Mean Platelet Volume 9.7 fL (9.4-12.3); Monocytes Absolute Auto 0.6 X10*3/uL (0.1-1.2); Monocytes Percent Auto 3.6 % (2-11); Neutrophils Absolute Auto 13.5 x10*3/uL (2.0-8.3); Platelet Count 357 X10*3/uL (160-400); Red Blood Count 4.85 X10*6/uL (4.20-5.50); Red Cell Distribution Width 11.5 % (11.0-16.0); White Blood Count 15.2 X10*3/uL (4.8-10.8)
[2022-04-13 19:33] LABS: Alanine Aminotransferase 38 U/L (0-31); Albumin Level 4.7 g/dL (3.5-5.0); Alkaline Phosphatase 103 U/L (39-117); Anion Gap 23 (12-20); Aspartate Amino Transferase 31 U/L (5-31); Bilirubin Total 0.7 mg/dL (0.0-1.0); Blood Urea Nitrogen 17 mg/dL (9-16); Calcium 10.2 mg/dL (8.4-10.2); Carbon Dioxide 25 mmol/L (22-29); Chloride 98 mmol/L (96-108); Creatinine Clr Calc Pharmacy 39.5; Estimated Glomerular Filt Rate 49; Glucose Random 360 mg/dL (60-115); Magnesium 1.9 mg/dL (1.6-2.6); Potassium 4.7 mmol/L (3.3-5.1); Sodium 141 mmol/L (135-145); Total Protein 7.5 g/dL (6.5-8.0)
[2022-04-13 19:37] LABS: IDNOW Serial# 16C4AD1C; IDNOW Serial# BCCEAD1C; Influenza A Negative (Negative); Influenza B2 Negative (Negative)
[2022-04-13 19:38] LABS: COVID-19 Test Negative (Negative)
[2022-04-13] MEDS: Ondansetron ODT 4 MG TAB.RAPDIS TRANSLINGU (19:38)
[2022-04-13] MEDS: 0.9 % Sodium Chloride 1,000 ML 999 ML IV ×2 (19:51→20:47)
[2022-04-13 20:20] LABS: Appearance Urine Clear; Color Urine Yellow; Glucose Urine UA >=1000 mg/dL (Negative); Leukocyte Esterase Urine Negative (Negative); Nitrite Urine Negative (Negative); Specific Gravity - Urine >= 1.030 (1.005-1.025); UMIC TRIGGER UACC YES; Urine Blood Negative (Negative); Urine Ketones 80 mg/dL (Negative); Urine Protein Negative (Neg-Trace)
[2022-04-13 20:25] LABS: Bacteria Urine None Seen (None Seen); Hyaline Casts Urine 0-2 /LPF (0-2); Squamous Epithelial Cell Urine 0-2 /HPF (0-2); WBC Urine 0-5 /HPF (0-5)
[2022-04-13 20:46] LABS: Glucose, Whole Blood 261 mg/dL (60-115)
[2022-04-13 21:15] LABS: Troponin-I High Sensitivity < 3.5 ng/L (<3.5-17.0)
[2022-04-13 22:25] LABS: Acetone, serum QL Small (Negative)
[2022-04-13 22:28] LABS: Anion Gap 16 (12-20); Blood Urea Nitrogen 12 mg/dL (9-16); Calcium 8.1 mg/dL (8.4-10.2); Carbon Dioxide 23 mmol/L (22-29); Chloride 104 mmol/L (96-108); Creatinine Clr Calc Pharmacy 60.9; Estimated Glomerular Filt Rate > 60; Glucose Random 214 mg/dL (60-115); Potassium 3.9 mmol/L (3.3-5.1); Sodium 139 mmol/L (135-145)
== END 2022-04-13 23:11 | disposition home or self-care (01) ==
PROVIDERS: Physician Assistant; Emergency Provider Emergency Medicine; PCP Nurse Practitioner Family
DX: E10.65 Type 1 diabetes mellitus with hyperglycemia (principal); R11.2 Nausea with vomiting, unspecified; R19.7 Diarrhea, unspecified; Z79.4 Long term (current) use of insulin; Z20.822 Contact with and (suspected) exposure to COVID-19; Z20.828 Contact with and (suspected) exposure to other viral communicable diseases; Z79.899 Other long term (current) drug therapy
CPT/HCPCS: 36415; 80048; 80053; 81001; 82009; 82803; 82947; 83735; 84484; 85025; 87502; 87635; 99284

== ENCOUNTER 2022-04-14 13:18 | Inpatient (IN) | payer OTHER, SELFPAY ==
--- NOTE | ~2022-04-14 | CT_ITS ---
EXAMINATION: CT ABDOMEN AND PELVIS WITH CONTRAST CLINICAL INFORMATION: abd pain nausea vomiting COMPARISON: None. TECHNIQUE: Multidetector volumetric imaging was performed from the superior aspect of the liver through the pubic symphysis following administration of 85 mL Omnipaque 300 intravenous contrast. Sagittal and coronal reformatted images were obtained on the technologist workstation.. This CT examination was performed using dose optimization techniques as appropriate, variously including the following: *Automated exposure control *Adjustment of mA and/or kV according to patient size (this includes techniques or standardized protocols for targeted exams where dose is matched to indication/reason for exam; i.e. extremities or head) *Use of iterative reconstruction technique DLP: 327 mGy-cm FINDINGS: LUNG BASES: The visualized lung bases are unremarkable. LIVER, GALLBLADDER, AND BILIARY TREE: Diffuse fatty infiltration liver but no focal hepatic lesion nor biliary ductal dilatation. The gallbladder is unremarkable with no evidence of radiopaque gallstones, gallbladder wall thickening, or obvious pericholecystic inflammatory changes. PANCREAS: Unremarkable. SPLEEN: Unremarkable. ADRENAL GLANDS: Unremarkable. KIDNEYS AND URETERS: The kidneys are normal in size, shape, and attenuation. No hydronephrosis, hydroureter, or calculi seen. No perinephric stranding. BLADDER: Unremarkable. GASTROINTESTINAL TRACT: Colon is decompressed but there does appear to be mild diffuse colonic wall thickening extending from the cecum to the rectum. Normal-appearing retrocecal appendix. Visualized small bowel unremarkable. No obstructive changes seen. ABDOMINAL WALL: No significant hernia is appreciated. LYMPHOVASCULAR STRUCTURES: No lymphadenopathy. The aorta is unremarkable. PELVIC VISCERA: Presumably surgically absent OSSEOUS STRUCTURES: Mild likely chronic compression deformity along the superior endplate of L4. CT/CT abdomen pelvis w IV con IMPRESSION: Colon is decompressed but there does appear to be mild diffuse colonic wall thickening extending from the cecum to the rectum. Infectious or inflammatory colitis would be favored. No obstructive changes seen.
[2022-04-14 13:50] VITALS: BP 121/55; PULSE 108; RESP 18; TEMP 37.1; O2SAT 98; BMI 22.4
--- NOTE | 2022-04-14 13:51 | ED.NAVMDI ---
HPI - Nausea/Vomiting/Diarrhea General Chief complaint: Nausea/Vomiting/Diarrhea <SHAHIDA Glaser Last Filed: 04/14/22 13:55> Stated complaint: Vomiting <SHAHIDA Glaser Last Filed: 04/14/22 13:55> Time Seen by Provider: 04/14/22 21:26 <SHAHIDA Glaser Last Filed: 04/14/22 13:55> Source: patient <SHAHIDA Vega Last Filed: 04/15/22 01:22> Mode of arrival: ambulatory <SHAHIDA Vega Last Filed: 04/15/22 01:22> Limitations: no limitations <SHAHIDA Vega Last Filed: 04/15/22 01:22> History of Present Illness HPI Narrative: This is a 61-year-old female history of insulin-dependent diabetes type 1 (controlled on lantus & humalog sliding scale) , patient presents today with nausea, vomiting, diffuse abdominal pain, started 2 days ago and has been worsening. Patient tells me she was seen here yesterday was diagnosed with diabetic gastroparesis, was discharged home however decided to come back if she is unable to keep anything down by mouth, patient tells me she feels awful has had 2-3 episodes of vomiting today. Not eating or drinking. Feels weak and tired. She does have a history of DKA. Patient denies chest pain, shortness of breath, headache, vision changes, dizziness, flank pain. <SHAHIDA Vega Last Filed: 04/15/22 01:22> Related Data Allergies/Adverse reactions: Allergies Allergy/AdvReac Type Severity Reaction Status Date / Time No Known Allergies Allergy Verified 04/14/22 13:50 <SHAHIDA Glaser Last Filed: 04/14/22 13:55> Review of Systems Review of Systems: Constitutional : No Weight loss, No Fever, No Chills, No Fatigue, No Malaise ENT/Mouth : No sore throat, No Rhinorrhea Eyes: No Eye Pain, No Swelling, No Redness Cardiovascular : No Chest Pain, No SOB, No Dyspnea on Exertion, No Orthopnea, No Edema, No Palpitations Respiratory : No Cough, No Sputum, No Wheezing Gastrointestinal : + Nausea, + Vomiting, No Diarrhea, No Constipation, + abdominal Pain, No Hematochezia, No Melena Genitourinary : No Dysuria, No Urinary Frequency, No Hematuria, Musculoskeletal : No joint pain, No Myalgias, No Joint Swelling Skin : No Skin Lesions, No rash Neuro : No Weakness, No Numbness, No Dizziness, No Headache Psych : No Anxiety/Panic, No Depression All other systems reviewed and are negative <SHAHIDA Vega - Last Filed: 04/15/22 01:22> Yes all other systems are reviewed and are negative <SHAHIDA Vega - Last Filed: 04/15/22 01:22> [facility] Past Medical History Attestation statement: The following information was validated with the patient. <SHAHIDA Vega - Last Filed: 04/15/22 01:22> Source: old records reviewed and nursing notes reviewed <SHAHIDA Vega - Last Filed: 04/15/22 01:22> Social History Social History: Social History Alcohol intake: current Alcohol intake frequency: holidays/special occasions only Advance Directives: No Advance Directives Information Provided: No <SHAHIDA Glaser - Last Filed: 04/14/22 13:55> Physical Exam Vital Signs: Vital Signs: Last Vital Signs Temp 98.9 F 04/15/22 05:41 Pulse 122 H 04/15/22 05:41 Resp 18 04/15/22 05:41 BP 117/52 L 04/15/22 05:41 Pulse Ox 98 04/15/22 05:41 O2 Del Method 04/15/22 05:41 BMI result Body Mass Index 22.4 <SHAHIDA Glaser - Last Filed: 04/14/22 13:55> Vital Signs: Last Vital Signs Temp 98.9 F 04/15/22 05:41 Pulse 122 H 04/15/22 05:41 Resp 18 04/15/22 05:41 BP 117/52 L 04/15/22 05:41 Pulse Ox 98 04/15/22 05:41 O2 Del Method 04/15/22 05:41 BMI result Body Mass Index 22.4 vss <SHAHIDA Vega - Last Filed: 04/15/22 01:22> Vital Signs: Last Vital Signs Temp 98.9 F 04/15/22 05:41 Pulse 122 H 04/15/22 05:41 Resp 18 04/15/22 05:41 BP 117/52 L 04/15/22 05:41 Pulse Ox 98 04/15/22 05:41 O2 Del Method 04/15/22 05:41 BMI result Body Mass Index 22.4 <Richard Fish MD - Last Filed: 04/15/22 06:39> Appearance: Alert.? Oriented X3.? No acute distress.? Head: Normocephalic, atraumatic, no step-offs or deformities Eyes: Pupils equal, round and reactive to light.? Neck: Normal inspection.? Neck supple.? CVS: Normal heart rate and rhythm.? Pulses normal.? Respiratory: No respiratory distress.? Breath sounds normal.? Abdomen: Soft and diffusely tender abdomen.? Skin: Skin warm and dry.? Normal skin color.? Normal skin turgor.? Extremities: No lower extremity edema.? No calf ttp. 5/5 strength to bilateral upper and lower extremities Neuro: Oriented X 3.? No motor deficit.? No sensory deficit. CN 2-12 intact <SHAHIDA Vega - Last Filed: 04/15/22 01:22> Course Course Course Narrative: RME - 61 yo female with history of uncontrolled DM1 presents to the ER with ongoing vomiting, unable to keep anything down starting yesterday afternoon. Seen here yesterday and told she probably has gastroparesis and to f/u with GI. Vomiting everything she tries to drink today. Glucose 294 this morning and gave herself insulin. Will repeat labs, treat with IVF and reglan. Stable to go back to waiting room until treatment room is available. <SHAHIDA Glaser - Last Filed: 04/14/22 13:55> Reevaluation(s) Reevaluation #1: Patient's CBC with slight leukocytosis 13.0 likely reactive to nausea and vomiting, chemistry with an elevated anion gap, anion gap of 23, normal potassium. Patient's point of care 261, elevated receiving IV fluids at this time. Patient is noted to be acidotic with a pH of 7.19. Small amount of acetone noted. Concerning for diabetic ketoacidosis. Plan at this time is IV hydration followed by a IV insulin. Will admit patient for DKA, inability to tolerate p.o.. <SHAHIDA Vega - Last Filed: 04/15/22 01:22> Time: 21:58 <SHAHIDA Vega - Last Filed: 04/15/22 01:22> Reevaluation #2: I discussed this case with hospitalist who states prior to her taking this patient patient must have 2 closed anion gaps. This patient will be signed out to my attending doctors Polina pending repeat labs and admission. <SHAHIDA Vega - Last Filed: 04/15/22 01:22> Time: 01:21 <SHAHIDA Vega - Last Filed: 04/15/22 01:22> Medications Administered Generic Name Dose Route Start Last Admin Trade Name Freq PRN Reason Stop Dose Admin Insulin Human Regular 100 unit in 100 mls @ 0 mls/hr 04/15/22 03:00 04/15/22 06:10 Myxredlin IVCONT 5.5 unit/hr .Q0M ROLA 5.5 mls/hr Titration Protocol As Directed Dextrose/Sodium Chloride 1,000 mls @ 150 mls/hr 04/15/22 03:00 04/15/22 03:28 D51/2ns IVCONT 150 mls/hr .Q6H40M ROLA Administration Discontinued Medications Generic Name Dose Route Start Last Admin Trade Name Freq PRN Reason Stop Dose Admin Sodium Chloride 1,000 mls @ 999 mls/hr 04/14/22 14:00 04/14/22 20:20 Ns IVCONT 04/14/22 15:00 Infused .Q1H1M ROLA Infusion Sodium Chloride 1,000 mls @ 999 mls/hr 04/14/22 21:45 04/15/22 03:42 Ns IV 04/14/22 22:45 Infused .Q1H1M ROLA Infusion Sodium Chloride 1,000 mls @ 999 mls/hr 04/14/22 22:00 04/15/22 03:42 Ns IV 04/14/22 23:00 Infused .Q1H1M ROLA Infusion Sodium Chloride 1,000 mls @ 999 mls/hr 04/14/22 22:00 04/15/22 03:42 Ns IV 04/14/22 23:00 Infused .Q1H1M ROLA Infusion Insulin Human Regular 10 unit 04/14/22 22:01 04/14/22 22:39 Insulin Regular, Human 100 Unit/Ml 3 Ml Vial IVPUSH 04/14/22 22:02 10 unit ONCE ONE Administration Insulin Human Regular 5 unit 04/14/22 23:02 04/14/22 23:37 Insulin Regular, Human 100 Unit/Ml 3 Ml Vial IVPUSH 04/14/22 23:03 5 unit ONCE ONE Administration Iohexol 100 ml 04/14/22 22:01 04/14/22 22:01 Iohexol 350 Mg/Ml 100 Ml Infus..Btl IV 04/14/22 22:02 85 ml ONCE ONE Administration Metoclopramide HCl 10 mg 04/14/22 13:52 04/14/22 18:20 Metoclopramide Hcl 10 Mg/2 Ml Vial IVPUSH 04/14/22 13:53 10 mg ONCE ONE Administration Ondansetron HCl 4 mg 04/15/22 02:50 04/15/22 03:01 Ondansetron Hcl 4 Mg/2 Ml Vial IVPUSH 04/15/22 02:51 4 mg ONCE ONE Administration <SHAHIDA Glaser - Last Filed: 04/14/22 13:55> Medications Administered Generic Name Dose Route Start Last Admin Trade Name Freq PRN Reason Stop Dose Admin Insulin Human Regular 100 unit in 100 mls @ 0 mls/hr 04/15/22 03:00 04/15/22 06:10 Myxredlin IVCONT 5.5 unit/hr .Q0M ROLA 5.5 mls/hr Titration Protocol As Directed Dextrose/Sodium Chloride 1,000 mls @ 150 mls/hr 04/15/22 03:00 04/15/22 03:28 D51/2ns IVCONT 150 mls/hr .Q6H40M ROLA Administration Discontinued Medications Generic Name Dose Route Start Last Admin Trade Name Freq PRN Reason Stop Dose Admin Sodium Chloride 1,000 mls @ 999 mls/hr 04/14/22 14:00 04/14/22 20:20 Ns IVCONT 04/14/22 15:00 Infused .Q1H1M ROLA Infusion Sodium Chloride 1,000 mls @ 999 mls/hr 04/14/22 21:45 04/15/22 03:42 Ns IV 04/14/22 22:45 Infused .Q1H1M ROLA Infusion Sodium Chloride 1,000 mls @ 999 mls/hr 04/14/22 22:00 04/15/22 03:42 Ns IV 04/14/22 23:00 Infused .Q1H1M ROLA Infusion Sodium Chloride 1,000 mls @ 999 mls/hr 04/14/22 22:00 04/15/22 03:42 Ns IV 04/14/22 23:00 Infused .Q1H1M ROLA Infusion Insulin Human Regular 10 unit 04/14/22 22:01 04/14/22 22:39 Insulin Regular, Human 100 Unit/Ml 3 Ml Vial IVPUSH 04/14/22 22:02 10 unit ONCE ONE Administration Insulin Human Regular 5 unit 04/14/22 23:02 04/14/22 23:37 Insulin Regular, Human 100 Unit/Ml 3 Ml Vial IVPUSH 04/14/22 23:03 5 unit ONCE ONE Administration Iohexol 100 ml 04/14/22 22:01 04/14/22 22:01 Iohexol 350 Mg/Ml 100 Ml Infus..Btl IV 04/14/22 22:02 85 ml ONCE ONE Administration Metoclopramide HCl 10 mg 04/14/22 13:52 04/14/22 18:20 Metoclopramide Hcl 10 Mg/2 Ml Vial IVPUSH 04/14/22 13:53 10 mg ONCE ONE Administration Ondansetron HCl 4 mg 04/15/22 02:50 04/15/22 03:01 Ondansetron Hcl 4 Mg/2 Ml Vial IVPUSH 04/15/22 02:51 4 mg ONCE ONE Administration <SHAHIDA Vega - Last Filed: 04/15/22 01:22> Medications Administered Generic Name Dose Route Start Last Admin Trade Name Freq PRN Reason Stop Dose Admin Insulin Human Regular 100 unit in 100 mls @ 0 mls/hr 04/15/22 03:00 04/15/22 06:10 Myxredlin IVCONT 5.5 unit/hr .Q0M ROLA 5.5 mls/hr Titration Protocol As Directed Dextrose/Sodium Chloride 1,000 mls @ 150 mls/hr 04/15/22 03:00 04/15/22 03:28 D51/2ns IVCONT 150 mls/hr .Q6H40M ROLA Administration Discontinued Medications Generic Name Dose Route Start Last Admin Trade Name Campbell PRN Reason Stop Dose Admin Sodium Chloride 1,000 mls @ 999 mls/hr 04/14/22 14:00 04/14/22 20:20 Ns IVCONT 04/14/22 15:00 Infused .Q1H1M ROLA Infusion Sodium Chloride 1,000 mls @ 999 mls/hr 04/14/22 21:45 04/15/22 03:42 Ns IV 04/14/22 22:45 Infused .Q1H1M ROLA Infusion Sodium Chloride 1,000 mls @ 999 mls/hr 04/14/22 22:00 04/15/22 03:42 Ns IV 04/14/22 23:00 Infused .Q1H1M ROLA Infusion Sodium Chloride 1,000 mls @ 999 mls/hr 04/14/22 22:00 04/15/22 03:42 Ns IV 04/14/22 23:00 Infused .Q1H1M ROLA Infusion Insulin Human Regular 10 unit 04/14/22 22:01 04/14/22 22:39 Insulin Regular, Human 100 Unit/Ml 3 Ml Vial IVPUSH 04/14/22 22:02 10 unit ONCE ONE Administration Insulin Human Regular 5 unit 04/14/22 23:02 04/14/22 23:37 Insulin Regular, Human 100 Unit/Ml 3 Ml Vial IVPUSH 04/14/22 23:03 5 unit ONCE ONE Administration Iohexol 100 ml 04/14/22 22:01 04/14/22 22:01 Iohexol 350 Mg/Ml 100 Ml Infus..Btl IV 04/14/22 22:02 85 ml ONCE ONE Administration Metoclopramide HCl 10 mg 04/14/22 13:52 04/14/22 18:20 Metoclopramide Hcl 10 Mg/2 Ml Vial IVPUSH 04/14/22 13:53 10 mg ONCE ONE Administration Ondansetron HCl 4 mg 04/15/22 02:50 04/15/22 03:01 Ondansetron Hcl 4 Mg/2 Ml Vial IVPUSH 04/15/22 02:51 4 mg ONCE ONE Administration <Richard Fish MD - Last Filed: 04/15/22 06:39> Medical Decision Making Medical Decision Making [facility] Narrative: 2129 This is a 63 female history of diabetes presenting the emergency department with nausea, vomiting, frequent bowel habits x2 day.? Has had at least 10 episodes of vomiting yesterday and 3 episodes t5oday, reports bilious vomiting.? Unable to keep anything down.? No known sick contacts.? Physical exam diffusely tender abdomen. Normoactive bowel sounds. Patient was seen here yesterday for similar complaints was diagnosed with diabetic gastroparesis, was discharged home. Continues to state she is unable to tolerate anything by mouth. Again I am concern for diabetic ketoacidosis, gastroparesis. Will obtain GONZALEZ to rule out cyclic vomiting syndrome. I do not suspect acute abdomen or intra-abdominal etiologies. Will rule out electrolyte abnormalities. Plan at this time basic labs, VBG, acetone, urine, fluids, basic labs. I will obtain CT of the abdomen pelvis as 1 was not done yesterday. <SHAHIDA Vega - Last Filed: 04/15/22 01:22> 2129 This is a 63 female history of diabetes presenting the emergency department with nausea, vomiting, frequent bowel habits x2 day.? Has had at least 10 episodes of vomiting yesterday and 3 episodes t5oday, reports bilious vomiting.? Unable to keep anything down.? No known sick contacts.? Physical exam diffusely tender abdomen. Normoactive bowel sounds. Patient was seen here yesterday for similar complaints was diagnosed with diabetic gastroparesis, was discharged home. Continues to state she is unable to tolerate anything by mouth. Again I am concern for diabetic ketoacidosis, gastroparesis. Will obtain GONZALEZ to rule out cyclic vomiting syndrome. I do not suspect acute abdomen or intra-abdominal etiologies. Will rule out electrolyte abnormalities. Plan at this time basic labs, VBG, acetone, urine, fluids, basic labs. I will obtain CT of the abdomen pelvis as 1 was not done yesterday. 02:45 patient with metabolic acidosis with ketoacidosis secondary to diabetes and vomiting start patient on insulin drip D5 half-normal recheck chemistry in 2 hours Repeat chemistry still showing significant acidosis with bicarb of 8 pH 7.19 will give 1 amp of bicarb continue D5 half-normal along with insulin drip case discussed with Dr. Lawson admit to ICU <Richard Fish MD - Last Filed: 04/15/22 06:39> Differential Diagnosis Differential Diagnoses: The differential diagnosis associated with the presentation includes <SHAHIDA Vega - Last Filed: 04/15/22 01:22> Again I am concern for diabetic ketoacidosis, gastroparesis. Will obtain GONZALEZ to rule out cyclic vomiting syndrome. I do not suspect acute abdomen or intra-abdominal etiologies. Will rule out electrolyte abnormalities. <SHAHIDA Vega - Last Filed: 04/15/22 01:22> Lab Data MDM Lab Attestation statement: I reviewed the patient's lab results. <Richard Fish MD - Last Filed: 04/15/22 06:39> Result Diagrams: 04/14/22 15:22 04/14/22 15:22 <SHAHIDA Glaser - Last Filed: 04/14/22 13:55> Labs: Lab Results 04/14/22 04/14/22 04/14/22 Range/Units 15:22 15:22 15:22 WBC 13.0 H (4.8-10.8) X10*3/uL RBC 4.44 (4.20-5.50) X10*6/uL Hgb 13.4 (12.0-16.0) g/dl Hct 39.3 (37.0-47.0) % MCV 88.5 (80.0-98.0) fL MCH 30.2 (27.0-33.0) pg MCHC 34.1 (31.0-35.0) g/dl RDW 11.8 (11.0-16.0) % Plt Count 346 (160-400) X10*3/uL MPV 9.4 (9.4-12.3) fL Immature Gran % (Auto) 0.5 H (0.0-0.4) % Neut % (Auto) 84.5 H (45-73) % Lymph % (Auto) 10.6 L (20-40) % [place] % (Auto) 4.2 (2-11) % Eos % (Auto) 0.0 (0-4) % Baso % (Auto) 0.2 (0-2) % Lymph # (Auto) 1.4 (1.2-4.9) X10*3/uL [place] # (Auto) 0.5 (0.1-1.2) X10*3/uL Eos # (Auto) 0.0 (0.0-0.4) X10*3/uL Baso # (Auto) 0.0 (0.0-0.2) X10*3/uL Abs Immat Gran (auto) 0.07 H (0.00-0.03) X10*3/uL Absolute Neuts (auto) 11.0 H (2.0-8.3) x10*3/uL Absolute Nucleated RBC 0.000 (0.0-0.012) X10*3/uL Nucleated RBC % (auto) 0.0 (0.0-0.2) /100WBC O2 Saturation % ABG pH at Pt Temp (7.35-7.45) ABG pCO2 at Pt Temp (32-45) mmHg ABG pO2 at Pt Temp (83-108) mmHg ABG HCO3 (22-26) mmol/L ABG Base Excess (Actual) mmol/L VBG pH (7.32-7.43) VBG pCO2 mmHg VBG pO2 mmHg VBG HCO3 (22-26) mmol/L VBG O2 Saturation % VBG Base Excess mmol/L Sodium 136 (135-145) mmol/L Potassium 4.6 (3.3-5.1) mmol/L Chloride 100 (96-108) mmol/L Carbon Dioxide 18 L (22-29) mmol/L Anion Gap 23 H (12-20) BUN 11 (9-16) mg/dL Creatinine 1.11 (0.5-1.4) mg/dL Estim Creat Clear Calc 40.6 Estimated GFR 50 POC Glucose (60-115) mg/dL Random Glucose 281 H (60-115) mg/dL Estimat Average Glucose 344 mg/dL Hemoglobin A1c % 13.6 % Calcium 9.2 D (8.4-10.2) mg/dL Magnesium 1.7 (1.6-2.6) mg/dL Total Bilirubin 0.6 (0.0-1.0) mg/dL Direct Bilirubin 0.2 (0.0-0.5) mg/dL AST 25 (5-31) U/L ALT 33 H (0-31) U/L Alkaline Phosphatase 89 (39-117) U/L Total Protein 6.9 (6.5-8.0) g/dL Albumin 4.4 (3.5-5.0) g/dL Acetone, Qual (Negative) 04/14/22 04/14/22 04/14/22 Range/Units 21:39 21:43 22:58 WBC (4.8-10.8) X10*3/uL RBC (4.20-5.50) X10*6/uL Hgb (12.0-16.0) g/dl Hct (37.0-47.0) % MCV (80.0-98.0) fL MCH (27.0-33.0) pg MCHC (31.0-35.0) g/dl RDW (11.0-16.0) % Plt Count (160-400) X10*3/uL MPV (9.4-12.3) fL Immature Gran % (Auto) (0.0-0.4) % Neut % (Auto) (45-73) % Lymph % (Auto) (20-40) % [place] % (Auto) (2-11) % Eos % (Auto) (0-4) % Baso % (Auto) (0-2) % Lymph # (Auto) (1.2-4.9) X10*3/uL [place] # (Auto) (0.1-1.2) X10*3/uL Eos # (Auto) (0.0-0.4) X10*3/uL Baso # (Auto) (0.0-0.2) X10*3/uL Abs Immat Gran (auto) (0.00-0.03) X10*3/uL Absolute Neuts (auto) (2.0-8.3) x10*3/uL Absolute Nucleated RBC (0.0-0.012) X10*3/uL Nucleated RBC % (auto) (0.0-0.2) /100WBC O2 Saturation % ABG pH at Pt Temp (7.35-7.45) ABG pCO2 at Pt Temp (32-45) mmHg ABG pO2 at Pt Temp (83-108) mmHg ABG HCO3 (22-26) mmol/L ABG Base Excess (Actual) mmol/L VBG pH 7.19 L* (7.32-7.43) VBG pCO2 22 mmHg VBG pO2 50 mmHg VBG HCO3 8 L (22-26) mmol/L VBG O2 Saturation 75.0 % VBG Base Excess -17.4 mmol/L Sodium (135-145) mmol/L Potassium (3.3-5.1) mmol/L Chloride (96-108) mmol/L Carbon Dioxide (22-29) mmol/L Anion Gap (12-20) BUN (9-16) mg/dL Creatinine (0.5-1.4) mg/dL Estim Creat Clear Calc Estimated GFR POC Glucose 398 H* (60-115) mg/dL Random Glucose (60-115) mg/dL Estimat Average Glucose mg/dL Hemoglobin A1c % % Calcium (8.4-10.2) mg/dL Magnesium (1.6-2.6) mg/dL Total Bilirubin (0.0-1.0) mg/dL Direct Bilirubin (0.0-0.5) mg/dL AST (5-31) U/L ALT (0-31) U/L Alkaline Phosphatase (39-117) U/L Total Protein (6.5-8.0) g/dL Albumin (3.5-5.0) g/dL Acetone, Qual Small H (Negative) 04/15/22 04/15/22 04/15/22 Range/Units 01:04 01:57 03:10 WBC (4.8-10.8) X10*3/uL RBC (4.20-5.50) X10*6/uL Hgb (12.0-16.0) g/dl Hct (37.0-47.0) % MCV (80.0-98.0) fL MCH (27.0-33.0) pg MCHC (31.0-35.0) g/dl RDW (11.0-16.0) % Plt Count (160-400) X10*3/uL MPV (9.4-12.3) fL Immature Gran % (Auto) (0.0-0.4) % Neut % (Auto) (45-73) % Lymph % (Auto) (20-40) % [place] % (Auto) (2-11) % Eos % (Auto) (0-4) % Baso % (Auto) (0-2) % Lymph # (Auto) (1.2-4.9) X10*3/uL [place] # (Auto) (0.1-1.2) X10*3/uL Eos # (Auto) (0.0-0.4) X10*3/uL Baso # (Auto) (0.0-0.2) X10*3/uL Abs Immat Gran (auto) (0.00-0.03) X10*3/uL Absolute Neuts (auto) (2.0-8.3) x10*3/uL Absolute Nucleated RBC (0.0-0.012) X10*3/uL Nucleated RBC % (auto) (0.0-0.2) /100WBC O2 Saturation % ABG pH at Pt Temp (7.35-7.45) ABG pCO2 at Pt Temp (32-45) mmHg ABG pO2 at Pt Temp (83-108) mmHg ABG HCO3 (22-26) mmol/L ABG Base Excess (Actual) mmol/L VBG pH 7.22 L (7.32-7.43) VBG pCO2 21 mmHg VBG pO2 62 mmHg VBG HCO3 9 L (22-26) mmol/L VBG O2 Saturation 89.0 % VBG Base Excess -16.6 mmol/L Sodium 140 (135-145) mmol/L Potassium 4.3 (3.3-5.1) mmol/L Chloride 114 H (96-108) mmol/L Carbon Dioxide 10 L* D (22-29) mmol/L Anion Gap 20 (12-20) BUN 9 (9-16) mg/dL Creatinine 0.91 (0.5-1.4) mg/dL Estim Creat Clear Calc 49.6 Estimated GFR > 60 POC Glucose 242 H (60-115) mg/dL Random Glucose 204 H (60-115) mg/dL Estimat Average Glucose mg/dL Hemoglobin A1c % % Calcium 7.8 L D (8.4-10.2) mg/dL Magnesium (1.6-2.6) mg/dL Total Bilirubin (0.0-1.0) mg/dL Direct Bilirubin (0.0-0.5) mg/dL AST (5-31) U/L ALT (0-31) U/L Alkaline Phosphatase (39-117) U/L Total Protein (6.5-8.0) g/dL Albumin (3.5-5.0) g/dL Acetone, Qual (Negative) 04/15/22 04/15/22 04/15/22 Range/Units 04:28 05:50 05:55 WBC (4.8-10.8) X10*3/uL RBC (4.20-5.50) X10*6/uL Hgb (12.0-16.0) g/dl Hct (37.0-47.0) % MCV (80.0-98.0) fL MCH (27.0-33.0) pg MCHC (31.0-35.0) g/dl RDW (11.0-16.0) % Plt Count (160-400) X10*3/uL MPV (9.4-12.3) fL Immature Gran % (Auto) (0.0-0.4) % Neut % (Auto) (45-73) % Lymph % (Auto) (20-40) % [place] % (Auto) (2-11) % Eos % (Auto) (0-4) % Baso % (Auto) (0-2) % Lymph # (Auto) (1.2-4.9) X10*3/uL [place] # (Auto) (0.1-1.2) X10*3/uL Eos # (Auto) (0.0-0.4) X10*3/uL Baso # (Auto) (0.0-0.2) X10*3/uL Abs Immat Gran (auto) (0.00-0.03) X10*3/uL Absolute Neuts (auto) (2.0-8.3) x10*3/uL Absolute Nucleated RBC (0.0-0.012) X10*3/uL Nucleated RBC % (auto) (0.0-0.2) /100WBC O2 Saturation % ABG pH at Pt Temp (7.35-7.45) ABG pCO2 at Pt Temp (32-45) mmHg ABG pO2 at Pt Temp (83-108) mmHg ABG HCO3 (22-26) mmol/L ABG Base Excess (Actual) mmol/L VBG pH (7.32-7.43) VBG pCO2 mmHg VBG pO2 mmHg VBG HCO3 (22-26) mmol/L VBG O2 Saturation % VBG Base Excess mmol/L Sodium 140 (135-145) mmol/L Potassium 3.9 (3.3-5.1) mmol/L Chloride 115 H (96-108) mmol/L Carbon Dioxide 8 L* (22-29) mmol/L Anion Gap 21 H (12-20) BUN 8 L (9-16) mg/dL Creatinine 1.01 (0.5-1.4) mg/dL Estim Creat Clear Calc 44.6 Estimated GFR 56 POC Glucose 323 H 245 H (60-115) mg/dL Random Glucose 276 H (60-115) mg/dL Estimat Average Glucose mg/dL Hemoglobin A1c % % Calcium 7.9 L (8.4-10.2) mg/dL Magnesium (1.6-2.6) mg/dL Total Bilirubin (0.0-1.0) mg/dL Direct Bilirubin (0.0-0.5) mg/dL AST (5-31) U/L ALT (0-31) U/L Alkaline Phosphatase (39-117) U/L Total Protein (6.5-8.0) g/dL Albumin (3.5-5.0) g/dL Acetone, Qual (Negative) 04/15/22 Range/Units 05:57 WBC (4.8-10.8) X10*3/uL RBC (4.20-5.50) X10*6/uL Hgb (12.0-16.0) g/dl Hct (37.0-47.0) % MCV (80.0-98.0) fL MCH (27.0-33.0) pg MCHC (31.0-35.0) g/dl RDW (11.0-16.0) % Plt Count (160-400) X10*3/uL MPV (9.4-12.3) fL Immature Gran % (Auto) (0.0-0.4) % Neut % (Auto) (45-73) % Lymph % (Auto) (20-40) % [place] % (Auto) (2-11) % Eos % (Auto) (0-4) % Baso % (Auto) (0-2) % Lymph # (Auto) (1.2-4.9) X10*3/uL [place] # (Auto) (0.1-1.2) X10*3/uL Eos # (Auto) (0.0-0.4) X10*3/uL Baso # (Auto) (0.0-0.2) X10*3/uL Abs Immat Gran (auto) (0.00-0.03) X10*3/uL Absolute Neuts (auto) (2.0-8.3) x10*3/uL Absolute Nucleated RBC (0.0-0.012) X10*3/uL Nucleated RBC % (auto) (0.0-0.2) /100WBC O2 Saturation 93.0 % ABG pH at Pt Temp 7.19 L* (7.35-7.45) ABG pCO2 at Pt Temp 19 L* (32-45) mmHg ABG pO2 at Pt Temp 70 L (83-108) mmHg ABG HCO3 7 L (22-26) mmol/L ABG Base Excess (Actual) -18.2 mmol/L VBG pH (7.32-7.43) VBG pCO2 mmHg VBG pO2 mmHg VBG HCO3 (22-26) mmol/L VBG O2 Saturation % VBG Base Excess mmol/L Sodium (135-145) mmol/L Potassium (3.3-5.1) mmol/L Chloride (96-108) mmol/L Carbon Dioxide (22-29) mmol/L Anion Gap (12-20) BUN (9-16) mg/dL Creatinine (0.5-1.4) mg/dL Estim Creat Clear Calc Estimated GFR POC Glucose (60-115) mg/dL Random Glucose (60-115) mg/dL Estimat Average Glucose mg/dL Hemoglobin A1c % % Calcium (8.4-10.2) mg/dL Magnesium (1.6-2.6) mg/dL Total Bilirubin (0.0-1.0) mg/dL Direct Bilirubin (0.0-0.5) mg/dL AST (5-31) U/L ALT (0-31) U/L Alkaline Phosphatase (39-117) U/L Total Protein (6.5-8.0) g/dL Albumin (3.5-5.0) g/dL Acetone, Qual (Negative) <SHAHIDA Glaser - Last Filed: 04/14/22 13:55> Lab Results 04/14/22 04/14/22 04/14/22 Range/Units 15:22 15:22 15:22 WBC 13.0 H (4.8-10.8) X10*3/uL RBC 4.44 (4.20-5.50) X10*6/uL Hgb 13.4 (12.0-16.0) g/dl Hct 39.3 (37.0-47.0) % MCV 88.5 (80.0-98.0) fL MCH 30.2 (27.0-33.0) pg MCHC 34.1 (31.0-35.0) g/dl RDW 11.8 (11.0-16.0) % Plt Count 346 (160-400) X10*3/uL MPV 9.4 (9.4-12.3) fL Immature Gran % (Auto) 0.5 H (0.0-0.4) % Neut % (Auto) 84.5 H (45-73) % Lymph % (Auto) 10.6 L (20-40) % [place] % (Auto) 4.2 (2-11) % Eos % (Auto) 0.0 (0-4) % Baso % (Auto) 0.2 (0-2) % Lymph # (Auto) 1.4 (1.2-4.9) X10*3/uL [place] # (Auto) 0.5 (0.1-1.2) X10*3/uL Eos # (Auto) 0.0 (0.0-0.4) X10*3/uL Baso # (Auto) 0.0 (0.0-0.2) X10*3/uL Abs Immat Gran (auto) 0.07 H (0.00-0.03) X10*3/uL Absolute Neuts (auto) 11.0 H (2.0-8.3) x10*3/uL Absolute Nucleated RBC 0.000 (0.0-0.012) X10*3/uL Nucleated RBC % (auto) 0.0 (0.0-0.2) /100WBC O2 Saturation % ABG pH at Pt Temp (7.35-7.45) ABG pCO2 at Pt Temp (32-45) mmHg ABG pO2 at Pt Temp (83-108) mmHg ABG HCO3 (22-26) mmol/L ABG Base Excess (Actual) mmol/L VBG pH (7.32-7.43) VBG pCO2 mmHg VBG pO2 mmHg VBG HCO3 (22-26) mmol/L VBG O2 Saturation % VBG Base Excess mmol/L Sodium 136 (135-145) mmol/L Potassium 4.6 (3.3-5.1) mmol/L Chloride 100 (96-108) mmol/L Carbon Dioxide 18 L (22-29) mmol/L Anion Gap 23 H (12-20) BUN 11 (9-16) mg/dL Creatinine 1.11 (0.5-1.4) mg/dL Estim Creat Clear Calc 40.6 Estimated GFR 50 POC Glucose (60-115) mg/dL Random Glucose 281 H (60-115) mg/dL Estimat Average Glucose 344 mg/dL Hemoglobin A1c % 13.6 % Calcium 9.2 D (8.4-10.2) mg/dL Magnesium 1.7 (1.6-2.6) mg/dL Total Bilirubin 0.6 (0.0-1.0) mg/dL Direct Bilirubin 0.2 (0.0-0.5) mg/dL AST 25 (5-31) U/L ALT 33 H (0-31) U/L Alkaline Phosphatase 89 (39-117) U/L Total Protein 6.9 (6.5-8.0) g/dL Albumin 4.4 (3.5-5.0) g/dL Acetone, Qual (Negative) 04/14/22 04/14/22 04/14/22 Range/Units 21:39 21:43 22:58 WBC (4.8-10.8) X10*3/uL RBC (4.20-5.50) X10*6/uL Hgb (12.0-16.0) g/dl Hct (37.0-47.0) % MCV (80.0-98.0) fL MCH (27.0-33.0) pg MCHC (31.0-35.0) g/dl RDW (11.0-16.0) % Plt Count (160-400) X10*3/uL MPV (9.4-12.3) fL Immature Gran % (Auto) (0.0-0.4) % Neut % (Auto) (45-73) % Lymph % (Auto) (20-40) % [place] % (Auto) (2-11) % Eos % (Auto) (0-4) % Baso % (Auto) (0-2) % Lymph # (Auto) (1.2-4.9) X10*3/uL [place] # (Auto) (0.1-1.2) X10*3/uL Eos # (Auto) (0.0-0.4) X10*3/uL Baso # (Auto) (0.0-0.2) X10*3/uL Abs Immat Gran (auto) (0.00-0.03) X10*3/uL Absolute Neuts (auto) (2.0-8.3) x10*3/uL Absolute Nucleated RBC (0.0-0.012) X10*3/uL Nucleated RBC % (auto) (0.0-0.2) /100WBC O2 Saturation % ABG pH at Pt Temp (7.35-7.45) ABG pCO2 at Pt Temp (32-45) mmHg ABG pO2 at Pt Temp (83-108) mmHg ABG HCO3 (22-26) mmol/L ABG Base Excess (Actual) mmol/L VBG pH 7.19 L* (7.32-7.43) VBG pCO2 22 mmHg VBG pO2 50 mmHg VBG HCO3 8 L (22-26) mmol/L VBG O2 Saturation 75.0 % VBG Base Excess -17.4 mmol/L Sodium (135-145) mmol/L Potassium (3.3-5.1) mmol/L Chloride (96-108) mmol/L Carbon Dioxide (22-29) mmol/L Anion Gap (12-20) BUN (9-16) mg/dL Creatinine (0.5-1.4) mg/dL Estim Creat Clear Calc Estimated GFR POC Glucose 398 H* (60-115) mg/dL Random Glucose (60-115) mg/dL Estimat Average Glucose mg/dL Hemoglobin A1c % % Calcium (8.4-10.2) mg/dL Magnesium (1.6-2.6) mg/dL Total Bilirubin (0.0-1.0) mg/dL Direct Bilirubin (0.0-0.5) mg/dL AST (5-31) U/L ALT (0-31) U/L Alkaline Phosphatase (39-117) U/L Total Protein (6.5-8.0) g/dL Albumin (3.5-5.0) g/dL Acetone, Qual Small H (Negative) 04/15/22 04/15/22 04/15/22 Range/Units 01:04 01:57 03:10 WBC (4.8-10.8) X10*3/uL RBC (4.20-5.50) X10*6/uL Hgb (12.0-16.0) g/dl Hct (37.0-47.0) % MCV (80.0-98.0) fL MCH (27.0-33.0) pg MCHC (31.0-35.0) g/dl RDW (11.0-16.0) % Plt Count (160-400) X10*3/uL MPV (9.4-12.3) fL Immature Gran % (Auto) (0.0-0.4) % Neut % (Auto) (45-73) % Lymph % (Auto) (20-40) % [place] % (Auto) (2-11) % Eos % (Auto) (0-4) % Baso % (Auto) (0-2) % Lymph # (Auto) (1.2-4.9) X10*3/uL [place] # (Auto) (0.1-1.2) X10*3/uL Eos # (Auto) (0.0-0.4) X10*3/uL Baso # (Auto) (0.0-0.2) X10*3/uL Abs Immat Gran (auto) (0.00-0.03) X10*3/uL Absolute Neuts (auto) (2.0-8.3) x10*3/uL Absolute Nucleated RBC (0.0-0.012) X10*3/uL Nucleated RBC % (auto) (0.0-0.2) /100WBC O2 Saturation % ABG pH at Pt Temp (7.35-7.45) ABG pCO2 at Pt Temp (32-45) mmHg ABG pO2 at Pt Temp (83-108) mmHg ABG HCO3 (22-26) mmol/L ABG Base Excess (Actual) mmol/L VBG pH 7.22 L (7.32-7.43) VBG pCO2 21 mmHg VBG pO2 62 mmHg VBG HCO3 9 L (22-26) mmol/L VBG O2 Saturation 89.0 % VBG Base Excess -16.6 mmol/L Sodium 140 (135-145) mmol/L Potassium 4.3 (3.3-5.1) mmol/L Chloride 114 H (96-108) mmol/L Carbon Dioxide 10 L* D (22-29) mmol/L Anion Gap 20 (12-20) BUN 9 (9-16) mg/dL Creatinine 0.91 (0.5-1.4) mg/dL Estim Creat Clear Calc 49.6 Estimated GFR > 60 POC Glucose 242 H (60-115) mg/dL Random Glucose 204 H (60-115) mg/dL Estimat Average Glucose mg/dL Hemoglobin A1c % % Calcium 7.8 L D (8.4-10.2) mg/dL Magnesium (1.6-2.6) mg/dL Total Bilirubin (0.0-1.0) mg/dL Direct Bilirubin (0.0-0.5) mg/dL AST (5-31) U/L ALT (0-31) U/L Alkaline Phosphatase (39-117) U/L Total Protein (6.5-8.0) g/dL Albumin (3.5-5.0) g/dL Acetone, Qual (Negative) 04/15/22 04/15/22 04/15/22 Range/Units 04:28 05:50 05:55 WBC (4.8-10.8) X10*3/uL RBC (4.20-5.50) X10*6/uL Hgb (12.0-16.0) g/dl Hct (37.0-47.0) % MCV (80.0-98.0) fL MCH (27.0-33.0) pg MCHC (31.0-35.0) g/dl RDW (11.0-16.0) % Plt Count (160-400) X10*3/uL MPV (9.4-12.3) fL Immature Gran % (Auto) (0.0-0.4) % Neut % (Auto) (45-73) % Lymph % (Auto) (20-40) % [place] % (Auto) (2-11) % Eos % (Auto) (0-4) % Baso % (Auto) (0-2) % Lymph # (Auto) (1.2-4.9) X10*3/uL [place] # (Auto) (0.1-1.2) X10*3/uL Eos # (Auto) (0.0-0.4) X10*3/uL Baso # (Auto) (0.0-0.2) X10*3/uL Abs Immat Gran (auto) (0.00-0.03) X10*3/uL Absolute Neuts (auto) (2.0-8.3) x10*3/uL Absolute Nucleated RBC (0.0-0.012) X10*3/uL Nucleated RBC % (auto) (0.0-0.2) /100WBC O2 Saturation % ABG pH at Pt Temp (7.35-7.45) ABG pCO2 at Pt Temp (32-45) mmHg ABG pO2 at Pt Temp (83-108) mmHg ABG HCO3 (22-26) mmol/L ABG Base Excess (Actual) mmol/L VBG pH (7.32-7.43) VBG pCO2 mmHg VBG pO2 mmHg VBG HCO3 (22-26) mmol/L VBG O2 Saturation % VBG Base Excess mmol/L Sodium 140 (135-145) mmol/L Potassium 3.9 (3.3-5.1) mmol/L Chloride 115 H (96-108) mmol/L Carbon Dioxide 8 L* (22-29) mmol/L Anion Gap 21 H (12-20) BUN 8 L (9-16) mg/dL Creatinine 1.01 (0.5-1.4) mg/dL Estim Creat Clear Calc 44.6 Estimated GFR 56 POC Glucose 323 H 245 H (60-115) mg/dL Random Glucose 276 H (60-115) mg/dL Estimat Average Glucose mg/dL Hemoglobin A1c % % Calcium 7.9 L (8.4-10.2) mg/dL Magnesium (1.6-2.6) mg/dL Total Bilirubin (0.0-1.0) mg/dL Direct Bilirubin (0.0-0.5) mg/dL AST (5-31) U/L ALT (0-31) U/L Alkaline Phosphatase (39-117) U/L Total Protein (6.5-8.0) g/dL Albumin (3.5-5.0) g/dL Acetone, Qual (Negative) 04/15/22 Range/Units 05:57 WBC (4.8-10.8) X10*3/uL RBC (4.20-5.50) X10*6/uL Hgb (12.0-16.0) g/dl Hct (37.0-47.0) % MCV (80.0-98.0) fL MCH (27.0-33.0) pg MCHC (31.0-35.0) g/dl RDW (11.0-16.0) % Plt Count (160-400) X10*3/uL MPV (9.4-12.3) fL Immature Gran % (Auto) (0.0-0.4) % Neut % (Auto) (45-73) % Lymph % (Auto) (20-40) % [place] % (Auto) (2-11) % Eos % (Auto) (0-4) % Baso % (Auto) (0-2) % Lymph # (Auto) (1.2-4.9) X10*3/uL [place] # (Auto) (0.1-1.2) X10*3/uL Eos # (Auto) (0.0-0.4) X10*3/uL Baso # (Auto) (0.0-0.2) X10*3/uL Abs Immat Gran (auto) (0.00-0.03) X10*3/uL Absolute Neuts (auto) (2.0-8.3) x10*3/uL Absolute Nucleated RBC (0.0-0.012) X10*3/uL Nucleated RBC % (auto) (0.0-0.2) /100WBC O2 Saturation 93.0 % ABG pH at Pt Temp 7.19 L* (7.35-7.45) ABG pCO2 at Pt Temp 19 L* (32-45) mmHg ABG pO2 at Pt Temp 70 L (83-108) mmHg ABG HCO3 7 L (22-26) mmol/L ABG Base Excess (Actual) -18.2 mmol/L VBG pH (7.32-7.43) VBG pCO2 mmHg VBG pO2 mmHg VBG HCO3 (22-26) mmol/L VBG O2 Saturation % VBG Base Excess mmol/L Sodium (135-145) mmol/L Potassium (3.3-5.1) mmol/L Chloride (96-108) mmol/L Carbon Dioxide (22-29) mmol/L Anion Gap (12-20) BUN (9-16) mg/dL Creatinine (0.5-1.4) mg/dL Estim Creat Clear Calc Estimated GFR POC Glucose (60-115) mg/dL Random Glucose (60-115) mg/dL Estimat Average Glucose mg/dL Hemoglobin A1c % % Calcium (8.4-10.2) mg/dL Magnesium (1.6-2.6) mg/dL Total Bilirubin (0.0-1.0) mg/dL Direct Bilirubin (0.0-0.5) mg/dL AST (5-31) U/L ALT (0-31) U/L Alkaline Phosphatase (39-117) U/L Total Protein (6.5-8.0) g/dL Albumin (3.5-5.0) g/dL Acetone, Qual (Negative) <SHAHIDA Vega - Last Filed: 04/15/22 01:22> Lab Results 04/14/22 04/14/22 04/14/22 Range/Units 15:22 15:22 15:22 WBC 13.0 H (4.8-10.8) X10*3/uL RBC 4.44 (4.20-5.50) X10*6/uL Hgb 13.4 (12.0-16.0) g/dl Hct 39.3 (37.0-47.0) % MCV 88.5 (80.0-98.0) fL MCH 30.2 (27.0-33.0) pg MCHC 34.1 (31.0-35.0) g/dl RDW 11.8 (11.0-16.0) % Plt Count 346 (160-400) X10*3/uL MPV 9.4 (9.4-12.3) fL Immature Gran % (Auto) 0.5 H (0.0-0.4) % Neut % (Auto) 84.5 H (45-73) % Lymph % (Auto) 10.6 L (20-40) % [place] % (Auto) 4.2 (2-11) % Eos % (Auto) 0.0 (0-4) % Baso % (Auto) 0.2 (0-2) % Lymph # (Auto) 1.4 (1.2-4.9) X10*3/uL [place] # (Auto) 0.5 (0.1-1.2) X10*3/uL Eos # (Auto) 0.0 (0.0-0.4) X10*3/uL Baso # (Auto) 0.0 (0.0-0.2) X10*3/uL Abs Immat Gran (auto) 0.07 H (0.00-0.03) X10*3/uL Absolute Neuts (auto) 11.0 H (2.0-8.3) x10*3/uL Absolute Nucleated RBC 0.000 (0.0-0.012) X10*3/uL Nucleated RBC % (auto) 0.0 (0.0-0.2) /100WBC O2 Saturation % ABG pH at Pt Temp (7.35-7.45) ABG pCO2 at Pt Temp (32-45) mmHg ABG pO2 at Pt Temp (83-108) mmHg ABG HCO3 (22-26) mmol/L ABG Base Excess (Actual) mmol/L VBG pH (7.32-7.43) VBG pCO2 mmHg VBG pO2 mmHg VBG HCO3 (22-26) mmol/L VBG O2 Saturation % VBG Base Excess mmol/L Sodium 136 (135-145) mmol/L Potassium 4.6 (3.3-5.1) mmol/L Chloride 100 (96-108) mmol/L Carbon Dioxide 18 L (22-29) mmol/L Anion Gap 23 H (12-20) BUN 11 (9-16) mg/dL Creatinine 1.11 (0.5-1.4) mg/dL Estim Creat Clear Calc 40.6 Estimated GFR 50 POC Glucose (60-115) mg/dL Random Glucose 281 H (60-115) mg/dL Estimat Average Glucose 344 mg/dL Hemoglobin A1c % 13.6 % Calcium 9.2 D (8.4-10.2) mg/dL Magnesium 1.7 (1.6-2.6) mg/dL Total Bilirubin 0.6 (0.0-1.0) mg/dL Direct Bilirubin 0.2 (0.0-0.5) mg/dL AST 25 (5-31) U/L ALT 33 H (0-31) U/L Alkaline Phosphatase 89 (39-117) U/L Total Protein 6.9 (6.5-8.0) g/dL Albumin 4.4 (3.5-5.0) g/dL Acetone, Qual (Negative) 04/14/22 04/14/22 04/14/22 Range/Units 21:39 21:43 22:58 WBC (4.8-10.8) X10*3/uL RBC (4.20-5.50) X10*6/uL Hgb (12.0-16.0) g/dl Hct (37.0-47.0) % MCV (80.0-98.0) fL MCH (27.0-33.0) pg MCHC (31.0-35.0) g/dl RDW (11.0-16.0) % Plt Count (160-400) X10*3/uL MPV (9.4-12.3) fL Immature Gran % (Auto) (0.0-0.4) % Neut % (Auto) (45-73) % Lymph % (Auto) (20-40) % [place] % (Auto) (2-11) % Eos % (Auto) (0-4) % Baso % (Auto) (0-2) % Lymph # (Auto) (1.2-4.9) X10*3/uL [place] # (Auto) (0.1-1.2) X10*3/uL Eos # (Auto) (0.0-0.4) X10*3/uL Baso # (Auto) (0.0-0.2) X10*3/uL Abs Immat Gran (auto) (0.00-0.03) X10*3/uL Absolute Neuts (auto) (2.0-8.3) x10*3/uL Absolute Nucleated RBC (0.0-0.012) X10*3/uL Nucleated RBC % (auto) (0.0-0.2) /100WBC O2 Saturation % ABG pH at Pt Temp (7.35-7.45) ABG pCO2 at Pt Temp (32-45) mmHg ABG pO2 at Pt Temp (83-108) mmHg ABG HCO3 (22-26) mmol/L ABG Base Excess (Actual) mmol/L VBG pH 7.19 L* (7.32-7.43) VBG pCO2 22 mmHg VBG pO2 50 mmHg VBG HCO3 8 L (22-26) mmol/L VBG O2 Saturation 75.0 % VBG Base Excess -17.4 mmol/L Sodium (135-145) mmol/L Potassium (3.3-5.1) mmol/L Chloride (96-108) mmol/L Carbon Dioxide (22-29) mmol/L Anion Gap (12-20) BUN (9-16) mg/dL Creatinine (0.5-1.4) mg/dL Estim Creat Clear Calc Estimated GFR POC Glucose 398 H* (60-115) mg/dL Random Glucose (60-115) mg/dL Estimat Average Glucose mg/dL Hemoglobin A1c % % Calcium (8.4-10.2) mg/dL Magnesium (1.6-2.6) mg/dL Total Bilirubin (0.0-1.0) mg/dL Direct Bilirubin (0.0-0.5) mg/dL AST (5-31) U/L ALT (0-31) U/L Alkaline Phosphatase (39-117) U/L Total Protein (6.5-8.0) g/dL Albumin (3.5-5.0) g/dL Acetone, Qual Small H (Negative) 04/15/22 04/15/22 04/15/22 Range/Units 01:04 01:57 03:10 WBC (4.8-10.8) X10*3/uL RBC (4.20-5.50) X10*6/uL Hgb (12.0-16.0) g/dl Hct (37.0-47.0) % MCV (80.0-98.0) fL MCH (27.0-33.0) pg MCHC (31.0-35.0) g/dl RDW (11.0-16.0) % Plt Count (160-400) X10*3/uL MPV (9.4-12.3) fL Immature Gran % (Auto) (0.0-0.4) % Neut % (Auto) (45-73) % Lymph % (Auto) (20-40) % [place] % (Auto) (2-11) % Eos % (Auto) (0-4) % Baso % (Auto) (0-2) % Lymph # (Auto) (1.2-4.9) X10*3/uL [place] # (Auto) (0.1-1.2) X10*3/uL Eos # (Auto) (0.0-0.4) X10*3/uL Baso # (Auto) (0.0-0.2) X10*3/uL Abs Immat Gran (auto) (0.00-0.03) X10*3/uL Absolute Neuts (auto) (2.0-8.3) x10*3/uL Absolute Nucleated RBC (0.0-0.012) X10*3/uL Nucleated RBC % (auto) (0.0-0.2) /100WBC O2 Saturation % ABG pH at Pt Temp (7.35-7.45) ABG pCO2 at Pt Temp (32-45) mmHg ABG pO2 at Pt Temp (83-108) mmHg ABG HCO3 (22-26) mmol/L ABG Base Excess (Actual) mmol/L VBG pH 7.22 L (7.32-7.43) VBG pCO2 21 mmHg VBG pO2 62 mmHg VBG HCO3 9 L (22-26) mmol/L VBG O2 Saturation 89.0 % VBG Base Excess -16.6 mmol/L Sodium 140 (135-145) mmol/L Potassium 4.3 (3.3-5.1) mmol/L Chloride 114 H (96-108) mmol/L Carbon Dioxide 10 L* D (22-29) mmol/L Anion Gap 20 (12-20) BUN 9 (9-16) mg/dL Creatinine 0.91 (0.5-1.4) mg/dL Estim Creat Clear Calc 49.6 Estimated GFR > 60 POC Glucose 242 H (60-115) mg/dL Random Glucose 204 H (60-115) mg/dL Estimat Average Glucose mg/dL Hemoglobin A1c % % Calcium 7.8 L D (8.4-10.2) mg/dL Magnesium (1.6-2.6) mg/dL Total Bilirubin (0.0-1.0) mg/dL Direct Bilirubin (0.0-0.5) mg/dL AST (5-31) U/L ALT (0-31) U/L Alkaline Phosphatase (39-117) U/L Total Protein (6.5-8.0) g/dL Albumin (3.5-5.0) g/dL Acetone, Qual (Negative) 04/15/22 04/15/22 04/15/22 Range/Units 04:28 05:50 05:55 WBC (4.8-10.8) X10*3/uL RBC (4.20-5.50) X10*6/uL Hgb (12.0-16.0) g/dl Hct (37.0-47.0) % MCV (80.0-98.0) fL MCH (27.0-33.0) pg MCHC (31.0-35.0) g/dl RDW (11.0-16.0) % Plt Count (160-400) X10*3/uL MPV (9.4-12.3) fL Immature Gran % (Auto) (0.0-0.4) % Neut % (Auto) (45-73) % Lymph % (Auto) (20-40) % [place] % (Auto) (2-11) % Eos % (Auto) (0-4) % Baso % (Auto) (0-2) % Lymph # (Auto) (1.2-4.9) X10*3/uL [place] # (Auto) (0.1-1.2) X10*3/uL Eos # (Auto) (0.0-0.4) X10*3/uL Baso # (Auto) (0.0-0.2) X10*3/uL Abs Immat Gran (auto) (0.00-0.03) X10*3/uL Absolute Neuts (auto) (2.0-8.3) x10*3/uL Absolute Nucleated RBC (0.0-0.012) X10*3/uL Nucleated RBC % (auto) (0.0-0.2) /100WBC O2 Saturation % ABG pH at Pt Temp (7.35-7.45) ABG pCO2 at Pt Temp (32-45) mmHg ABG pO2 at Pt Temp (83-108) mmHg ABG HCO3 (22-26) mmol/L ABG Base Excess (Actual) mmol/L VBG pH (7.32-7.43) VBG pCO2 mmHg VBG pO2 mmHg VBG HCO3 (22-26) mmol/L VBG O2 Saturation % VBG Base Excess mmol/L Sodium 140 (135-145) mmol/L Potassium 3.9 (3.3-5.1) mmol/L Chloride 115 H (96-108) mmol/L Carbon Dioxide 8 L* (22-29) mmol/L Anion Gap 21 H (12-20) BUN 8 L (9-16) mg/dL Creatinine 1.01 (0.5-1.4) mg/dL Estim Creat Clear Calc 44.6 Estimated GFR 56 POC Glucose 323 H 245 H (60-115) mg/dL Random Glucose 276 H (60-115) mg/dL Estimat Average Glucose mg/dL Hemoglobin A1c % % Calcium 7.9 L (8.4-10.2) mg/dL Magnesium (1.6-2.6) mg/dL Total Bilirubin (0.0-1.0) mg/dL Direct Bilirubin (0.0-0.5) mg/dL AST (5-31) U/L ALT (0-31) U/L Alkaline Phosphatase (39-117) U/L Total Protein (6.5-8.0) g/dL Albumin (3.5-5.0) g/dL Acetone, Qual (Negative) 04/15/22 Range/Units 05:57 WBC (4.8-10.8) X10*3/uL RBC (4.20-5.50) X10*6/uL Hgb (12.0-16.0) g/dl Hct (37.0-47.0) % MCV (80.0-98.0) fL MCH (27.0-33.0) pg MCHC (31.0-35.0) g/dl RDW (11.0-16.0) % Plt Count (160-400) X10*3/uL MPV (9.4-12.3) fL Immature Gran % (Auto) (0.0-0.4) % Neut % (Auto) (45-73) % Lymph % (Auto) (20-40) % [place] % (Auto) (2-11) % Eos % (Auto) (0-4) % Baso % (Auto) (0-2) % Lymph # (Auto) (1.2-4.9) X10*3/uL [place] # (Auto) (0.1-1.2) X10*3/uL Eos # (Auto) (0.0-0.4) X10*3/uL Baso # (Auto) (0.0-0.2) X10*3/uL Abs Immat Gran (auto) (0.00-0.03) X10*3/uL Absolute Neuts (auto) (2.0-8.3) x10*3/uL Absolute Nucleated RBC (0.0-0.012) X10*3/uL Nucleated RBC % (auto) (0.0-0.2) /100WBC O2 Saturation 93.0 % ABG pH at Pt Temp 7.19 L* (7.35-7.45) ABG pCO2 at Pt Temp 19 L* (32-45) mmHg ABG pO2 at Pt Temp 70 L (83-108) mmHg ABG HCO3 7 L (22-26) mmol/L ABG Base Excess (Actual) -18.2 mmol/L VBG pH (7.32-7.43) VBG pCO2 mmHg VBG pO2 mmHg VBG HCO3 (22-26) mmol/L VBG O2 Saturation % VBG Base Excess mmol/L Sodium (135-145) mmol/L Potassium (3.3-5.1) mmol/L Chloride (96-108) mmol/L Carbon Dioxide (22-29) mmol/L Anion Gap (12-20) BUN (9-16) mg/dL Creatinine (0.5-1.4) mg/dL Estim Creat Clear Calc Estimated GFR POC Glucose (60-115) mg/dL Random Glucose (60-115) mg/dL Estimat Average Glucose mg/dL Hemoglobin A1c % % Calcium (8.4-10.2) mg/dL Magnesium (1.6-2.6) mg/dL Total Bilirubin (0.0-1.0) mg/dL Direct Bilirubin (0.0-0.5) mg/dL AST (5-31) U/L ALT (0-31) U/L Alkaline Phosphatase (39-117) U/L Total Protein (6.5-8.0) g/dL Albumin (3.5-5.0) g/dL Acetone, Qual (Negative) <Richard Fish MD - Last Filed: 04/15/22 06:39> Critical Care Time Critical Care Time Critical Care Time: Yes <SHAHIDA Vega - Last Filed: 04/15/22 01:22> Total Critical Care Time: 35 <SHAHIDA Vega - Last Filed: 04/15/22 01:22> 90 <Richard Fish MD - Last Filed: 04/15/22 06:39> Attestation: I attest to this time spent taking care of the patient, obtaining history, physical, reviewing labs, imaging, speaking to my attending, speaking to specialist. <SHAHIDA Vega - Last Filed: 04/15/22 01:22> The patient was critically ill with a high probability of imminent or life threatening deterioration. I spent greater than 100 minutes of discontinuous time evaluating the patient,delivering critical care at the bedside, discussing and evaluating pertinent data with consultants. Critical care time does not include time spent performing separately billable procedures or teaching. Total time spent performing critical care was 90 minutes. <Richard Fish MD - Last Filed: 04/15/22 06:39> Discharge Plan Discharge Clinical Impression: Diabetic ketoacidosis, Nausea & vomiting <SHAHIDA Glaser - Last Filed: 04/14/22 13:55> Patient Disposition: Admitted As Inpatient <SHAHIDA Glaser - Last Filed: 04/14/22 13:55>
[2022-04-14 15:31] LABS: MANUAL DIFF FLAG NO
[2022-04-14 15:32] LABS: Basophils Percent Auto 0.2 % (0-2); Hematocrit 39.3 % (37.0-47.0); Hemoglobin 13.4 g/dl (12.0-16.0); Imm Gran Abs Auto 0.07 X10*3/uL (0.00-0.03); Imm Gran Pct Auto 0.5 % (0.0-0.4); Lymphocytes Absolute Auto 1.4 X10*3/uL (1.2-4.9); Lymphocytes Percent Auto 10.6 % (20-40); Mean Corpuscular HGB Conc 34.1 g/dl (31.0-35.0); Mean Corpuscular Hemoglobin 30.2 pg (27.0-33.0); Mean Corpuscular Volume 88.5 fL (80.0-98.0); Mean Platelet Volume 9.4 fL (9.4-12.3); Monocytes Absolute Auto 0.5 X10*3/uL (0.1-1.2); Monocytes Percent Auto 4.2 % (2-11); Neutrophils Percent Auto 84.5 % (45-73); Platelet Count 346 X10*3/uL (160-400); Red Blood Count 4.44 X10*6/uL (4.20-5.50); Red Cell Distribution Width 11.8 % (11.0-16.0)
[2022-04-14 15:39] LABS: Estimated Average Glucose 344 mg/dL; Hemoglobin A1c % 13.6 %
[2022-04-14 16:01] LABS: Alanine Aminotransferase 33 U/L (0-31); Albumin Level 4.4 g/dL (3.5-5.0); Alkaline Phosphatase 89 U/L (39-117); Anion Gap 23 (12-20); Aspartate Amino Transferase 25 U/L (5-31); Bilirubin Direct 0.2 mg/dL (0.0-0.5); Bilirubin Total 0.6 mg/dL (0.0-1.0); Blood Urea Nitrogen 11 mg/dL (9-16); Calcium 9.2 mg/dL (8.4-10.2); Carbon Dioxide 18 mmol/L (22-29); Chloride 100 mmol/L (96-108); Creatinine Clr Calc Pharmacy 40.6; Estimated Glomerular Filt Rate 50; Glucose Random 281 mg/dL (60-115); Magnesium 1.7 mg/dL (1.6-2.6); Potassium 4.6 mmol/L (3.3-5.1); Sodium 136 mmol/L (135-145); Total Protein 6.9 g/dL (6.5-8.0)
[2022-04-14] MEDS: 0.9 % Sodium Chloride 1,000 ML 999 ML IVCONT (18:19)
[2022-04-14] MEDS: Metoclopramide HCl 10 MG/2 ML VIAL IVPUSH (18:20)
[2022-04-14 20:49] VITALS: BP 114/44; PULSE 76; RESP 19; TEMP 37.1; O2SAT 95
[2022-04-14 21:51] LABS: Venous Blood Gas Refer to POC result
[2022-04-14 21:52] LABS: VBG Base Excess -17.4 mmol/L; VBG HCO3 8 mmol/L (22-26); VBG pCO2 22 mmHg; VBG pH 7.19 (7.32-7.43); VBG pO2 50 mmHg
[2022-04-14 21:55] LABS: Acetone, serum QL Small (Negative)
[2022-04-14] MEDS: iohexoL 350 MG/ML 100 ML INFUS..BTL IV (22:01)
[2022-04-14] MEDS: 0.9 % Sodium Chloride 1,000 ML 999 ML IV ×3 (22:20→23:38)
[2022-04-14 22:25] VITALS: PULSE 129; O2SAT 99
[2022-04-14] MEDS: Insulin Regular, Human 100 UNIT/ML 3 ML VIAL 10 UNIT IVPUSH (22:39)
[2022-04-14 23:05] LABS: Glucose, Whole Blood 398 mg/dL (60-115)
[2022-04-14] MEDS: Insulin Regular, Human 100 UNIT/ML 3 ML VIAL IVPUSH (23:37)
[2022-04-15] VITALS (19 sets, daily range): BP systolic 88–121; BP diastolic 42–88; PULSE 79–138; RESP 12–20; TEMP 36.5–37.2; O2SAT 95–100
[2022-04-15 02:05] LABS: VBG Base Excess -16.6 mmol/L; VBG HCO3 9 mmol/L (22-26); VBG pCO2 21 mmHg; VBG pH 7.22 (7.32-7.43); VBG pO2 62 mmHg
[2022-04-15 02:06] LABS: Venous Blood Gas Refer to POC result
[2022-04-15 02:43] LABS: Anion Gap 20 (12-20); Blood Urea Nitrogen 9 mg/dL (9-16); Calcium 7.8 mg/dL (8.4-10.2); Carbon Dioxide 10 mmol/L (22-29); Chloride 114 mmol/L (96-108); Creatinine Clr Calc Pharmacy 49.6; Estimated Glomerular Filt Rate > 60; Glucose Random 204 mg/dL (60-115); Potassium 4.3 mmol/L (3.3-5.1); Sodium 140 mmol/L (135-145)
[2022-04-15] MEDS: ondansetron HCL 4 MG/2 ML VIAL IVPUSH (03:01)
[2022-04-15 03:14] LABS: Glucose, Whole Blood 242 mg/dL (60-115)
[2022-04-15] MEDS: Insulin Regular/NS 100 UNIT/100 ML PLAST..BAG IVCONT ×2 (03:27→20:56)
[2022-04-15] MEDS: Dextrose 5 % and 0.45 % NaCl 1,000 ML 150 ML IVCONT ×4 (03:28→18:08)
--- NOTE | 2022-04-15 03:30 | PC.NURSE ---
ED provider directed this RN to start insulin drip at 5 units/hr. Insulin and D51/2NS infusing through separate IVs.
[2022-04-15 04:31] LABS: Glucose, Whole Blood 323 mg/dL (60-115)
[2022-04-15 05:54] LABS: Glucose, Whole Blood 245 mg/dL (60-115)
[2022-04-15 06:08] LABS: ABG Base Excess -18.2 mmol/L; ABG HCO3 7 mmol/L (22-26); ABG pCO2 19 mmHg (32-45); ABG pH 7.19 (7.35-7.45); ABG pO2 70 mmHg (83-108)
[2022-04-15 06:09] LABS: Venous Blood Gas Refer to POC result
[2022-04-15 06:28] LABS: Anion Gap 21 (12-20); Blood Urea Nitrogen 8 mg/dL (9-16); Calcium 7.9 mg/dL (8.4-10.2); Carbon Dioxide 8 mmol/L (22-29); Chloride 115 mmol/L (96-108); Creatinine Clr Calc Pharmacy 44.6; Estimated Glomerular Filt Rate 56; Glucose Random 276 mg/dL (60-115); Potassium 3.9 mmol/L (3.3-5.1); Sodium 140 mmol/L (135-145)
[2022-04-15] MEDS: Sodium Bicarbonate 8.4% 50 MEQ/50 ML SYRINGE IVPUSH (06:42)
[2022-04-15 07:19] LABS: Glucose, Whole Blood 199 mg/dL (60-115)
[2022-04-15] MEDS: Heparin Sodium,Porcine 5,000 UNIT/ML VIAL 5000 UNIT SUBCUT ×3 (07:40→23:37)
[2022-04-15] MEDS: Piperacillin Sodium/Tazobactam 3.375 GM in 0.9 % Sodium Chloride 50 ML IV ×3 (07:41→18:04)
--- NOTE | 2022-04-15 07:47 | PC.NURSE ---
Pt is alert/oriented x 3. New IV start to right FA as previous IV line infiltrated. Zoysn infusing at this time with D5.45 to follow. Insulin gtt infusing at 5.5 units/hr. 0710 poc 199, same rate continued. Pt has no complaints at this time. Denies n/v or pain. NSR on tele. Breathing even/unlabored. Skin pwd.
[2022-04-15 08:16] LABS: Lactic Acid 1.4 mmol/L (0.5-2.0)
[2022-04-15 08:24] LABS: Glucose, Whole Blood 165 mg/dL (60-115)
[2022-04-15 09:19] LABS: Glucose, Whole Blood 142 mg/dL (60-115)
[2022-04-15 09:43] LABS: COVID-19 Test Negative (Negative); IDNOW Serial# BCCEAD1C
--- NOTE | 2022-04-15 09:43 | PC.NURSE ---
Report given to Ruthy in ICU
[2022-04-15 10:15] LABS: Glucose, Whole Blood 130 mg/dL (60-115)
[2022-04-15 11:12] LABS: Glucose, Whole Blood 117 mg/dL (60-115)
--- NOTE | 2022-04-15 11:21 | PM.CCHP ---
History of Present Illness Date of Service: 04/15/22 Chief Complaint: Abdominal discomfort, nausea, metabolic acidosis 61-year-old lady with underlying history of type 1 diabetes mellitus with diabetic gastroparesis, hypertension, hyperlipidemia evaluated in emergency room on 04/14/2022 for nausea, vomiting, and diffuse abdominal discomfort ongoing for [address] abdomen pelvis with possible early colitis. Patient monitored in the emergency room for 17 hours with development of diabetic ketoacidosis requiring initiation of insulin drip and IV fluid support and admission to the intensive care unit. Review of Systems Constitutional: Constitutional: Denies daytime sleepiness, Denies excessive sweating, Denies fatigue, Denies fever(s), Denies lethargy, Denies malaise, Denies night sweats, Denies snoring and Denies weight loss Eyes: Eyes: Denies blurry vision and Denies itchy eyes ENT: Denies nasal congestion, Denies post nasal drip, Denies sinus pain, Denies sinus pressure and Denies other ( Thrush) Cardiovascular: Cardiovascular: Denies chest pain, Denies pedal edema, Denies dyspnea, Denies orthopnea and Denies paroxysmal nocturnal dyspnea Respiratory: Respiratory: Denies cough, Denies hemoptysis, Denies excessive phlegm production, Denies dyspnea, Denies snoring and Denies wheezing Gastrointestinal: Gastrointestinal: Reports abdominal pain, Denies heartburn, Reports nausea and Reports vomiting Musculoskeletal: Musculoskeletal: Denies myalgias, Denies arthralgias and Denies joint swelling Integumentary/Breasts: Skin/Breast: Denies rash Neurologic: Denies memory loss and Denies seizure-like activity Psychiatric: Psychiatric: Denies abnormal sleep pattern, Denies anxiety and Denies memory loss Endocrine: Endocrine: Denies excessive sweating, Denies fatigue and Denies heat intolerance Hematologic/Lymphatic: Hematologic/Lymphatic: Denies easy bruising Allergic/Immunologic: Allergic/Immunologic: Denies itchy eyes, Denies seasonal rhinorrhea and Denies wheezing PMFSH Social History Social History Household Members: Family and Children Housing: House Do you presently have visiting nurse or other home services: No Alcohol intake: current Alcohol intake frequency: holidays/special occasions only Patient Tobacco Use Status: Never used Tobacco Smoked in Last 30 Days: No e-Cigarette/Vaping Use: Never Used Patient Interested in Nicotine Replacement: No (N/A) Patient Given Instructions on How to Stop Smoking: No (N/A) Second Hand Smoke Exposure: No Use of substances other than those prescribed or required for medical reasons: No Currently Displaying Signs/Symptoms of Drug Intoxication Withdrawal: No Any prior treatment program specific to substance use: No Have you been hit, kicked, punched, or otherwise hurt by someone within the past year? If so, by whom?: No Do you feel safe in your current relationship?: No Current Relationship Is there a partner from a previous relationship who is making you feel unsafe now?: No Are you made to feel afraid or neglected: No Buddhism Healthcare Practices: [employer] Advance Directives: No Advance Directives Information Provided: No Advance Directives on File: No Do you have thoughts of harming others: None Do you have a plan to hurt others: No Plan Recently lost weight without trying: No Eating poorly because of decreased appetite: No Nutrition Risks: Poor intake 0-25% >4 days Patient : No : No Poor oral hygiene: No (dentures at home) Meds Allergies Allergy/AdvReac Type Severity Reaction Status Date / Time No Known Allergies Allergy Verified 04/14/22 13:50 Active Medications: Current Medications Dextrose (Dextrose 50 % 25 Gm/50 Ml Syringe) 25 gm IVPUSH Q30M PRN PRN Reason: BG < 70 Heparin Sodium (Porcine) (Heparin Sodium,Porcine 5,000 Unit/Ml Vial) 5,000 unit SUBCUT Q8H [facility] Last Admin: 04/15/22 07:40 Dose: 5,000 unit Insulin Human Regular (Myxredlin) 100 unit in 100 mls @ 0 mls/hr IVCONT .Q0M [facility]; Protocol Last Titration: 04/15/22 10:13 Dose: 1.5 unit/hr, 1.5 mls/hr Dextrose/Sodium Chloride (D51/2ns) 1,000 mls @ 150 mls/hr IVCONT .Q6H40M [facility] Last Admin: 04/15/22 08:39 Dose: 150 mls/hr Piperacillin Sod/Tazobactam (Sod 3.375 gm/ Sodium Chloride) 50 mls @ 100 mls/hr IV Q6H [facility] Last Infusion: 04/15/22 08:33 Dose: Infused Home Medications Medication Instructions Recorded Confirmed Last Taken Type insulin glargine 100 unit/mL (3 25 unit subcut DAILY 04/15/22 Unknown History mL) subcutaneous pen (Lantus Solostar U-100 Insulin) lisinopril 5 mg tablet 1 tab PO DAILY 04/15/22 Unknown History rosuvastatin 20 mg tablet 1 tab PO DAILY 04/15/22 Unknown History Physical Exam Vital Signs: Vital Signs: Last Vital Signs Temp 99 F 04/15/22 09:12 Pulse 95 04/15/22 11:00 Resp 19 04/15/22 11:00 BP 95/48 L 04/15/22 11:00 Pulse Ox 100 04/15/22 11:00 O2 Del Method 04/15/22 11:00 BMI result Body Mass Index 22.4 Const: General: no acute distress and alert Nutritional Appearance: not obese Orientation/consciousness: Other orientation findings ( oriented) HEENT: Head: Yes atraumatic Mouth: no other ( thrush) Throat: No postnasal drainage Eyes: General: appearance normal, both eyes and all related structures Sclerae: sclerae normal EOM: EOMs intact bilaterally Neck: Neck: Yes supple Lymphatic: no lymphadenopathy noted Resp: Effort & Inspection: normal respiratory effort and no use of accessory muscles Auscultation: clear to auscultation bilaterally Cardio: Rate: regular rate Rhythm: regular rhythm Heart sounds: no gallops, no murmurs and no rubs GI: Palpation (GI): Soft to palpation and Other GI palpation findings present ( nontender) Skin: General skin exam: other ( warm) Rashes: no rashes Extrem: General: No clubbing, No cyanosis and No edema Results Labs 04/14/22 15:22 04/15/22 05:55 Labs: Laboratory Results - last 24 hr 04/14/22 04/14/22 04/14/22 15:22 15:22 15:22 MCV 88.5 MCH 30.2 MCHC 34.1 RDW 11.8 Plt Count 346 MPV 9.4 Immature Gran % (Auto) 0.5 H Neut % (Auto) 84.5 H Lymph % (Auto) 10.6 L Pierce % (Auto) 4.2 Eos % (Auto) 0.0 Baso % (Auto) 0.2 Lymph # (Auto) 1.4 [place] # (Auto) 0.5 Eos # (Auto) 0.0 Baso # (Auto) 0.0 Abs Immat Gran (auto) 0.07 H Absolute Neuts (auto) 11.0 H Absolute Nucleated RBC 0.000 Nucleated RBC % (auto) 0.0 O2 Saturation ABG pH at Pt Temp ABG pCO2 at Pt Temp ABG pO2 at Pt Temp ABG HCO3 ABG Base Excess (Actual) VBG pH VBG pCO2 VBG pO2 VBG HCO3 VBG O2 Saturation VBG Base Excess Anion Gap 23 H Estim Creat Clear Calc 40.6 Estimated GFR 50 POC Glucose Random Glucose 281 H Estimat Average Glucose 344 Hemoglobin A1c % 13.6 Lactic Acid Calcium 9.2 D Magnesium 1.7 Total Bilirubin 0.6 Direct Bilirubin 0.2 AST 25 ALT 33 H Alkaline Phosphatase 89 Total Protein 6.9 Albumin 4.4 Acetone, Qual COVID-19 ([facility]) [email or web address] 04/14/22 04/14/22 04/14/22 21:39 21:43 22:58 MCV MCH MCHC RDW Plt Count MPV Immature Gran % (Auto) Neut % (Auto) Lymph % (Auto) [place] % (Auto) Eos % (Auto) Baso % (Auto) Lymph # (Auto) [place] # (Auto) Eos # (Auto) Baso # (Auto) Abs Immat Gran (auto) Absolute Neuts (auto) Absolute Nucleated RBC Nucleated RBC % (auto) O2 Saturation ABG pH at Pt Temp ABG pCO2 at Pt Temp ABG pO2 at Pt Temp ABG HCO3 ABG Base Excess (Actual) VBG pH 7.19 L* VBG pCO2 22 VBG pO2 50 VBG HCO3 8 L VBG O2 Saturation 75.0 VBG Base Excess -17.4 Anion Gap Estim Creat Clear Calc Estimated GFR POC Glucose 398 H* Random Glucose Estimat Average Glucose Hemoglobin A1c % Lactic Acid Calcium Magnesium Total Bilirubin Direct Bilirubin AST ALT Alkaline Phosphatase Total Protein Albumin Acetone, Qual Small H COVID-19 ([place]) [employer] 04/15/22 04/15/22 04/15/22 01:04 01:57 03:10 MCV MCH MCHC RDW Plt Count MPV Immature Gran % (Auto) Neut % (Auto) Lymph % (Auto) [place] % (Auto) Eos % (Auto) Baso % (Auto) Lymph # (Auto) [place] # (Auto) Eos # (Auto) Baso # (Auto) Abs Immat Gran (auto) Absolute Neuts (auto) Absolute Nucleated RBC Nucleated RBC % (auto) O2 Saturation ABG pH at Pt Temp ABG pCO2 at Pt Temp ABG pO2 at Pt Temp ABG HCO3 ABG Base Excess (Actual) VBG pH 7.22 L VBG pCO2 21 VBG pO2 62 VBG HCO3 9 L VBG O2 Saturation 89.0 VBG Base Excess -16.6 Anion Gap 20 Estim Creat Clear Calc 49.6 Estimated GFR > 60 POC Glucose 242 H Random Glucose 204 H Estimat Average Glucose Hemoglobin A1c % Lactic Acid Calcium 7.8 L D Magnesium Total Bilirubin Direct Bilirubin AST ALT Alkaline Phosphatase Total Protein Albumin Acetone, Qual COVID-19 ([facility]) COVID-19 [employer] 04/15/22 04/15/22 04/15/22 04:28 05:50 05:55 MCV MCH MCHC RDW Plt Count MPV Immature Gran % (Auto) Neut % (Auto) Lymph % (Auto) [place] % (Auto) Eos % (Auto) Baso % (Auto) Lymph # (Auto) [place] # (Auto) Eos # (Auto) Baso # (Auto) Abs Immat Gran (auto) Absolute Neuts (auto) Absolute Nucleated RBC Nucleated RBC % (auto) O2 Saturation ABG pH at Pt Temp ABG pCO2 at Pt Temp ABG pO2 at Pt Temp ABG HCO3 ABG Base Excess (Actual) VBG pH VBG pCO2 VBG pO2 VBG HCO3 VBG O2 Saturation VBG Base Excess Anion Gap 21 H Estim Creat Clear Calc 44.6 Estimated GFR 56 POC Glucose 323 H 245 H Random Glucose 276 H Estimat Average Glucose Hemoglobin A1c % Lactic Acid Calcium 7.9 L Magnesium Total Bilirubin Direct Bilirubin AST ALT Alkaline Phosphatase Total Protein Albumin Acetone, Qual COVID-19 ([facility]) COVID-19 [employer] 04/15/22 04/15/22 04/15/22 05:57 07:15 07:59 MCV MCH MCHC RDW Plt Count MPV Immature Gran % (Auto) Neut % (Auto) Lymph % (Auto) [place] % (Auto) Eos % (Auto) Baso % (Auto) Lymph # (Auto) [place] # (Auto) Eos # (Auto) Baso # (Auto) Abs Immat Gran (auto) Absolute Neuts (auto) Absolute Nucleated RBC Nucleated RBC % (auto) O2 Saturation 93.0 ABG pH at Pt Temp 7.19 L* ABG pCO2 at Pt Temp 19 L* ABG pO2 at Pt Temp 70 L ABG HCO3 7 L ABG Base Excess (Actual) -18.2 VBG pH VBG pCO2 VBG pO2 VBG HCO3 VBG O2 Saturation VBG Base Excess Anion Gap Estim Creat Clear Calc Estimated GFR POC Glucose 199 H Random Glucose Estimat Average Glucose Hemoglobin A1c % Lactic Acid 1.4 Calcium Magnesium Total Bilirubin Direct Bilirubin AST ALT Alkaline Phosphatase Total Protein Albumin Acetone, Qual COVID-19 ([facility]) COVID-19 Clin Com 04/15/22 04/15/22 04/15/22 08:18 09:13 09:22 MCV MCH MCHC RDW Plt Count MPV Immature Gran % (Auto) Neut % (Auto) Lymph % (Auto) [place] % (Auto) Eos % (Auto) Baso % (Auto) Lymph # (Auto) [place] # (Auto) Eos # (Auto) Baso # (Auto) Abs Immat Gran (auto) Absolute Neuts (auto) Absolute Nucleated RBC Nucleated RBC % (auto) O2 Saturation ABG pH at Pt Temp ABG pCO2 at Pt Temp ABG pO2 at Pt Temp ABG HCO3 ABG Base Excess (Actual) VBG pH VBG pCO2 VBG pO2 VBG HCO3 VBG O2 Saturation VBG Base Excess Anion Gap Estim Creat Clear Calc Estimated GFR POC Glucose 165 H 142 H Random Glucose Estimat Average Glucose Hemoglobin A1c % Lactic Acid Calcium Magnesium Total Bilirubin Direct Bilirubin AST ALT Alkaline Phosphatase Total Protein Albumin Acetone, Qual COVID-19 ([facility]) Negative COVID-19 Clin Com See Note 04/15/22 04/15/22 10:12 11:09 MCV MCH MCHC RDW Plt Count MPV Immature Gran % (Auto) Neut % (Auto) Lymph % (Auto) [place] % (Auto) Eos % (Auto) Baso % (Auto) Lymph # (Auto) [place] # (Auto) Eos # (Auto) Baso # (Auto) Abs Immat Gran (auto) Absolute Neuts (auto) Absolute Nucleated RBC Nucleated RBC % (auto) O2 Saturation ABG pH at Pt Temp ABG pCO2 at Pt Temp ABG pO2 at Pt Temp ABG HCO3 ABG Base Excess (Actual) VBG pH VBG pCO2 VBG pO2 VBG HCO3 VBG O2 Saturation VBG Base Excess Anion Gap Estim Creat Clear Calc Estimated GFR POC Glucose 130 H 117 H Random Glucose Estimat Average Glucose Hemoglobin A1c % Lactic Acid Calcium Magnesium Total Bilirubin Direct Bilirubin AST ALT Alkaline Phosphatase Total Protein Albumin Acetone, Qual COVID-19 ([facility]) COVID-19 Clin Com Imaging Radiologist's Impressions: Impressions Abdomen/Pelvis CT 04/14/22 22:07 IMPRESSION: Colon is decompressed but there does appear to be mild diffuse colonic wall thickening extending from the cecum to the rectum. Infectious or inflammatory colitis would be favored. No obstructive changes seen. Assessment and Plan (1) Metabolic acidosis: Status: Acute (2) Colitis: Status: Acute (3) Diabetic ketoacidosis: Status: Acute Plan Assessment: 61-year-old lady with underlying diabetes with gastroparesis admitted with nausea, hyperglycemia, and metabolic acidosis likely secondary to combination of diabetic ketoacidosis and starvation ketosis and also possible early colitis. Plan: Neuro: No acute issues. Cardiac: No acute issues. Pulmonary: No acute issues. Renal: Metabolic acidosis, likely secondary to ketoacidosis. Non oliguric. Continue to monitor renal indices and urine output. Endo: Diabetic ketoacidosis, likely with component of starvation ketosis, continue to titrate off insulin drip as tolerated. GI: No acute issues. ID: Possible early colitis on CT imaging, started on empiric Zosyn. Heme/Onc: No acute issues. Psych: No acute issues. Miscellaneous: No acute issues. Prophylaxis: Heparin Diet: NPO Critical care time spent: 45 minutes Time Spent With Patient Time: Total time managing care of this patient today ____ minutes.
[2022-04-15 12:02] LABS: Glucose, Whole Blood 98 mg/dL (60-115)
--- NOTE | 2022-04-15 12:16 | PHA.MEDREC ---
Pharmacy Consult ? Medication Reconciliation Pharmacy has completed the medication reconciliation. Reviewed home medications with patient.
[2022-04-15 12:36] LABS: Anion Gap 14 (12-20); Blood Urea Nitrogen 6 mg/dL (9-16); Calcium 7.9 mg/dL (8.4-10.2); Carbon Dioxide 17 mmol/L (22-29); Chloride 115 mmol/L (96-108); Creatinine Clr Calc Pharmacy 55.7; Estimated Glomerular Filt Rate > 60; Glucose Random 104 mg/dL (60-115); Potassium 3.5 mmol/L (3.3-5.1); Sodium 142 mmol/L (135-145)
[2022-04-15 13:22] LABS: Glucose, Whole Blood 104 mg/dL (60-115)
[2022-04-15 14:19] LABS: Glucose, Whole Blood 128 mg/dL (60-115)
[2022-04-15 15:20] LABS: Glucose, Whole Blood 156 mg/dL (60-115)
[2022-04-15 16:09] LABS: Glucose, Whole Blood 271 mg/dL (60-115)
[2022-04-15 17:14] LABS: Glucose, Whole Blood 218 mg/dL (60-115)
[2022-04-15 18:15] LABS: Glucose, Whole Blood 225 mg/dL (60-115)
[2022-04-15 18:56] LABS: Blood Urea Nitrogen 5 mg/dL (9-16); Calcium 7.8 mg/dL (8.4-10.2); Creatinine Clr Calc Pharmacy 49.6; Estimated Glomerular Filt Rate > 60; Glucose Random 224 mg/dL (60-115)
[2022-04-15 19:09] LABS: Anion Gap 10 (12-20); Carbon Dioxide 19 mmol/L (22-29); Chloride 109 mmol/L (96-108); Potassium 2.8 mmol/L (3.3-5.1); Sodium 135 mmol/L (135-145)
[2022-04-15 19:22] LABS: Glucose, Whole Blood 241 mg/dL (60-115)
[2022-04-15] MEDS: Potassium Chloride Packet 20 MEQ PACKET 40 MEQ PO (19:23)
[2022-04-15] MEDS: Potassium Phosphate/NS 15 MMOL/250 ML PLAST..BAG 62.5 MMOL IV ×2 (20:24→23:57)
[2022-04-15 21:15] LABS: Glucose, Whole Blood 188 mg/dL (60-115)
[2022-04-15 22:18] LABS: Glucose, Whole Blood 124 mg/dL (60-115)
[2022-04-15 23:29] LABS: Glucose, Whole Blood 82 mg/dL (60-115)
[2022-04-15] MEDS: Insulin Glargine,Hum.rec.anlog 100 UNIT/ML 10 ML VIAL 25 UNIT SUBCUT (23:56)
[2022-04-16] VITALS (10 sets, daily range): BP systolic 100–129; BP diastolic 51–70; PULSE 76–974; RESP 16–20; TEMP 36.1–37; O2SAT 96–100
[2022-04-16] MEDS: Piperacillin Sodium/Tazobactam 3.375 GM in 0.9 % Sodium Chloride 50 ML IV ×5 (01:19→23:26)
[2022-04-16] MEDS: Heparin Sodium,Porcine 5,000 UNIT/ML VIAL 5000 UNIT SUBCUT ×3 (06:08→23:20)
[2022-04-16 06:52] LABS: MANUAL DIFF FLAG NO
[2022-04-16 06:54] LABS: Venous Blood Gas Refer to POC result
[2022-04-16 06:54] LABS: VBG HCO3 19 mmol/L (22-26); VBG pCO2 29 mmHg; VBG pH 7.41 (7.32-7.43); VBG pO2 45 mmHg
[2022-04-16 06:59] LABS: Basophils Percent Auto 0.4 % (0-2); Eosinophils Absolute Auto 0.1 X10*3/uL (0.0-0.4); Eosinophils Percent Auto 0.7 % (0-4); Hematocrit 30.6 % (37.0-47.0); Hemoglobin 10.8 g/dl (12.0-16.0); Imm Gran Abs Auto 0.02 X10*3/uL (0.00-0.03); Imm Gran Pct Auto 0.3 % (0.0-0.4); Lymphocytes Absolute Auto 2.6 X10*3/uL (1.2-4.9); Lymphocytes Percent Auto 37.2 % (20-40); Mean Corpuscular HGB Conc 35.3 g/dl (31.0-35.0); Mean Corpuscular Hemoglobin 30.9 pg (27.0-33.0); Mean Corpuscular Volume 87.4 fL (80.0-98.0); Mean Platelet Volume 9.3 fL (9.4-12.3); Monocytes Absolute Auto 0.5 X10*3/uL (0.1-1.2); Monocytes Percent Auto 7.5 % (2-11); Neutrophils Absolute Auto 3.8 x10*3/uL (2.0-8.3); Neutrophils Percent Auto 53.9 % (45-73); Platelet Count 212 X10*3/uL (160-400); Red Cell Distribution Width 12.3 % (11.0-16.0); White Blood Count 7.1 X10*3/uL (4.8-10.8)
[2022-04-16 07:15] LABS: Appearance Urine Clear; Color Urine Yellow; Glucose Urine UA Negative (Negative); Leukocyte Esterase Urine Negative (Negative); Nitrite Urine Negative (Negative); PH 5.5 (5.0-9.0); Urine Blood Negative (Negative); Urine Ketones 15 mg/dL (Negative); Urine Protein Negative (Neg-Trace)
[2022-04-16 07:17] LABS: Alanine Aminotransferase 25 U/L (0-31); Alkaline Phosphatase 62 U/L (39-117); Anion Gap 13 (12-20); Aspartate Amino Transferase 23 U/L (5-31); Bilirubin Total 0.4 mg/dL (0.0-1.0); Blood Urea Nitrogen 3 mg/dL (9-16); Calcium 7.7 mg/dL (8.4-10.2); Carbon Dioxide 20 mmol/L (22-29); Chloride 111 mmol/L (96-108); Creatinine Clr Calc Pharmacy 59.3; Estimated Glomerular Filt Rate > 60; Sodium 141 mmol/L (135-145); Total Protein 4.8 g/dL (6.5-8.0)
[2022-04-16 07:33] LABS: Amphetamine Screen Urine Not Detected (Not Detect); Barbiturates, Urine Not Detected (Not Detect); Benzodiazepines Screen Urine Not Detected (Not Detect); Cannabinoid Screen Urine Not Detected (Not Detect); Cocaine Screen Urine Not Detected (Not Detect); Fentanyl, urine Not Detected (Not Detect); Opiate Screen Urine Not Detected (Not Detect); Phencyclidine Screen Urine Not Detected (Not Detect)
[2022-04-16 07:49] LABS: Glucose, Whole Blood 64 mg/dL (60-115)
[2022-04-16 07:49] LABS: Glucose, Whole Blood 56 mg/dL (60-115)
[2022-04-16 07:54] LABS: Glucose Random 47 mg/dL (60-115); Magnesium 1.3 mg/dL (1.6-2.6)
[2022-04-16] MEDS: Magnesium Sulfate/H2O 2 GM/50 ML PIGGYBACK IV (08:44)
[2022-04-16] MEDS: Dextrose 5 % 1,000 ML 100 ML IVCONT ×2 (08:45→23:20)
[2022-04-16] MEDS: Potassium Chloride Packet 20 MEQ PACKET 40 MEQ PO ×2 (08:45→19:47)
[2022-04-16] MEDS: Multivitamin TABLET 1 TAB PO (08:45)
[2022-04-16 12:12] LABS: Glucose, Whole Blood 246 mg/dL (60-115)
--- NOTE | 2022-04-16 12:21 | MHC.CM.PN ---
EDWARD NINA, CM MET W/PT WHO REPORTS SHE LIVES W/, DTR, [place], PT REPORTS SHE IS FULLY INDEPENDENT W/ALL CARE, DENIES USE OF DME OTHER THAN DIABETIC SUPPLIES AND LANTUS AT [facility], NO HOME SERVICES. PT VERIFIES PCP IS JENNYFER PACHECO, PT REPORTS FULLY VACC AGAINST COVID AND IS UP TO DATE ON ALL VACCINES INCLUDING FLU/PNA. PT HAS COMPLETE A HCP PRIOR TO COMING TO UNIT AND NAMED HER DTR MAT HER [facility], COPY IN CHART. ANTIC D/C HOME NO SERVICES WHEN MEDICALLY CLEARED, FAMILY FOR TRANSPORT
[2022-04-16] MEDS: Insulin Lispro 100 UNIT/ML 3 ML VIAL SUBCUT ×2 (12:26→17:23)
--- NOTE | 2022-04-16 15:04 | HO.PM.IMPN ---
Subjective Subjective Date of Service: 04/16/22 Interval History: Feels much better than admission. Sugars responding to therapy Review of Systems Denies chest pain Denies shortness of breath Denies nausea vomiting diarrhea Denies fever chills Physical Exam Vital Signs: Vital Signs: Last Vital Signs Temp 98.3 F 04/16/22 12:00 Pulse 84 04/16/22 12:00 Resp 16 04/16/22 12:00 BP 109/54 L 04/16/22 12:00 Pulse Ox 98 04/16/22 12:00 O2 Del Method 04/16/22 12:00 BMI result Body Mass Index 22.4 Const: Other: Awake alert oriented x3 no acute distress Resp: Other: Clear to auscultation bilaterally no rales rhonchi or wheezes Cardio: Other: No S4; positive S1-S2; no S3 murmurs rubs or gallops GI: Other: Soft nontender nondistended normoactive bowel sounds Extrem: Other: No edema bilaterally Objective Data Active Medications Dextrose (Dextrose 50 % 25 Gm/50 Ml Syringe) 25 gm IVPUSH Q30M PRN PRN Reason: BG < 70 Heparin Sodium (Porcine) (Heparin Sodium,Porcine 5,000 Unit/Ml Vial) 5,000 unit SUBCUT Q8H [facility] Last Admin: 04/16/22 06:08 Dose: 5,000 unit Documented By: ELENA Piperacillin Sod/Tazobactam (Sod 3.375 gm/ Sodium Chloride) 50 mls @ 100 mls/hr IV Q6H [facility] Last Infusion: 04/16/22 13:05 Dose: 0 mls/hr Documented By: MICHAELA Dextrose (D5w) 1,000 mls @ 100 mls/hr IVCONT .Q10H [facility] Last Admin: 04/16/22 08:45 Dose: 100 mls/hr Documented By: MICHAELA Insulin Human Lispro (Insulin Lispro 100 Unit/Ml 3 Ml Vial) 0 unit SUBCUT QIDACHS [facility]; Protocol Last Admin: 04/16/22 12:26 Dose: 4 unit Documented By: MICHAELA Multivitamins/Vitamin C (Multivitamin Tablet) 1 tab PO DAILY [facility] Last Admin: 04/16/22 08:45 Dose: 1 tab Documented By: MICHAELA Potassium Chloride (Potassium Chloride Packet 20 Meq Packet) 40 meq PO BID [facility] Stop: 04/16/22 21:01 Last Admin: 04/16/22 08:45 Dose: 40 meq Documented By: MICHAELA Labs 04/16/22 06:45 04/16/22 06:45 Labs: Laboratory Results - last 24 hr 04/15/22 04/15/22 04/15/22 15:13 16:05 17:06 MCV MCH MCHC RDW Plt Count MPV Immature Gran % (Auto) Neut % (Auto) Lymph % (Auto) [place] % (Auto) Eos % (Auto) Baso % (Auto) Lymph # (Auto) [place] # (Auto) Eos # (Auto) Baso # (Auto) Abs Immat Gran (auto) Absolute Neuts (auto) Absolute Nucleated RBC Nucleated RBC % (auto) VBG pH VBG pCO2 VBG pO2 VBG HCO3 VBG O2 Saturation VBG Base Excess Anion Gap Estim Creat Clear Calc Estimated GFR POC Glucose 156 H 271 H 218 H Random Glucose Calcium Phosphorus Magnesium Total Bilirubin AST ALT Alkaline Phosphatase Total Protein Albumin Urine Color Urine Appearance Urine pH Ur Specific [place] Urine Protein Urine Glucose (UA) Urine Ketones Urine Blood Urine Nitrite Ur Leukocyte Esterase Urine Opiates Screen Urine Fentanyl Screen Ur Barbiturates Screen Ur Phencyclidine Scrn Ur Amphetamines Screen U Benzodiazepines Scrn Urine Cocaine Screen U Marijuana (THC) Screen 04/15/22 04/15/22 04/15/22 18:04 18:23 19:18 MCV MCH MCHC RDW Plt Count MPV Immature Gran % (Auto) Neut % (Auto) Lymph % (Auto) [place] % (Auto) Eos % (Auto) Baso % (Auto) Lymph # (Auto) [place] # (Auto) Eos # (Auto) Baso # (Auto) Abs Immat Gran (auto) Absolute Neuts (auto) Absolute Nucleated RBC Nucleated RBC % (auto) VBG pH VBG pCO2 VBG pO2 VBG HCO3 VBG O2 Saturation VBG Base Excess Anion Gap 10 L Estim Creat Clear Calc 49.6 Estimated GFR > 60 POC Glucose 225 H 241 H Random Glucose 224 H Calcium 7.8 L Phosphorus 1.0 L* Magnesium Total Bilirubin AST ALT Alkaline Phosphatase Total Protein Albumin Urine Color Urine Appearance Urine pH Ur Specific [place] Urine Protein Urine Glucose (UA) Urine Ketones Urine Blood Urine Nitrite Ur Leukocyte Esterase Urine Opiates Screen Urine Fentanyl Screen Ur Barbiturates Screen Ur Phencyclidine Scrn Ur Amphetamines Screen U Benzodiazepines Scrn Urine Cocaine Screen U Marijuana (THC) Screen 04/15/22 04/15/22 04/15/22 21:11 22:11 23:18 MCV MCH MCHC RDW Plt Count MPV Immature Gran % (Auto) Neut % (Auto) Lymph % (Auto) [place] % (Auto) Eos % (Auto) Baso % (Auto) Lymph # (Auto) [place] # (Auto) Eos # (Auto) Baso # (Auto) Abs Immat Gran (auto) Absolute Neuts (auto) Absolute Nucleated RBC Nucleated RBC % (auto) VBG pH VBG pCO2 VBG pO2 VBG HCO3 VBG O2 Saturation VBG Base Excess Anion Gap Estim Creat Clear Calc Estimated GFR POC Glucose 188 H 124 H 82 Random Glucose Calcium Phosphorus Magnesium Total Bilirubin AST ALT Alkaline Phosphatase Total Protein Albumin Urine Color Urine Appearance Urine pH Ur Specific [place] Urine Protein Urine Glucose (UA) Urine Ketones Urine Blood Urine Nitrite Ur Leukocyte Esterase Urine Opiates Screen Urine Fentanyl Screen Ur Barbiturates Screen Ur Phencyclidine Scrn Ur Amphetamines Screen U Benzodiazepines Scrn Urine Cocaine Screen U Marijuana (THC) Screen 04/16/22 04/16/22 04/16/22 06:28 06:28 06:45 MCV 87.4 MCH 30.9 MCHC 35.3 H RDW 12.3 Plt Count 212 D MPV 9.3 L Immature Gran % (Auto) 0.3 Neut % (Auto) 53.9 Lymph % (Auto) 37.2 [place] % (Auto) 7.5 Eos % (Auto) 0.7 Baso % (Auto) 0.4 Lymph # (Auto) 2.6 [place] # (Auto) 0.5 Eos # (Auto) 0.1 Baso # (Auto) 0.0 Abs Immat Gran (auto) 0.02 Absolute Neuts (auto) 3.8 Absolute Nucleated RBC 0.000 Nucleated RBC % (auto) 0.0 VBG pH VBG pCO2 VBG pO2 VBG HCO3 VBG O2 Saturation VBG Base Excess Anion Gap Estim Creat Clear Calc Estimated GFR POC Glucose Random Glucose Calcium Phosphorus Magnesium Total Bilirubin AST ALT Alkaline Phosphatase Total Protein Albumin Urine Color Yellow Urine Appearance Clear Urine pH 5.5 Ur Specific [place] 1.010 Urine Protein Negative Urine Glucose (UA) Negative Urine Ketones 15 Urine Blood Negative Urine Nitrite Negative Ur Leukocyte Esterase Negative Urine Opiates Screen Not Detected Urine Fentanyl Screen Not Detected Ur Barbiturates Screen Not Detected Ur Phencyclidine Scrn Not Detected Ur Amphetamines Screen Not Detected U Benzodiazepines Scrn Not Detected Urine Cocaine Screen Not Detected U Marijuana (THC) Screen Not Detected 04/16/22 04/16/22 04/16/22 06:45 06:49 07:26 MCV MCH MCHC RDW Plt Count MPV Immature Gran % (Auto) Neut % (Auto) Lymph % (Auto) [place] % (Auto) Eos % (Auto) Baso % (Auto) Lymph # (Auto) [place] # (Auto) Eos # (Auto) Baso # (Auto) Abs Immat Gran (auto) Absolute Neuts (auto) Absolute Nucleated RBC Nucleated RBC % (auto) VBG pH 7.41 VBG pCO2 29 VBG pO2 45 VBG HCO3 19 L VBG O2 Saturation 83.0 VBG Base Excess TNP Anion Gap 13 Estim Creat Clear Calc 59.3 Estimated GFR > 60 POC Glucose 56 L* Random Glucose 47 L* Calcium 7.7 L Phosphorus 3.0 Magnesium 1.3 L* Total Bilirubin 0.4 AST 23 ALT 25 Alkaline Phosphatase 62 Total Protein 4.8 L Albumin 3.0 L Urine Color Urine Appearance Urine pH Ur Specific [place] Urine Protein Urine Glucose (UA) Urine Ketones Urine Blood Urine Nitrite Ur Leukocyte Esterase Urine Opiates Screen Urine Fentanyl Screen Ur Barbiturates Screen Ur Phencyclidine Scrn Ur Amphetamines Screen U Benzodiazepines Scrn Urine Cocaine Screen U Marijuana (THC) Screen 04/16/22 04/16/22 07:44 12:06 MCV MCH MCHC RDW Plt Count MPV Immature Gran % (Auto) Neut % (Auto) Lymph % (Auto) [place] % (Auto) Eos % (Auto) Baso % (Auto) Lymph # (Auto) [place] # (Auto) Eos # (Auto) Baso # (Auto) Abs Immat Gran (auto) Absolute Neuts (auto) Absolute Nucleated RBC Nucleated RBC % (auto) VBG pH VBG pCO2 VBG pO2 VBG HCO3 VBG O2 Saturation VBG Base Excess Anion Gap Estim Creat Clear Calc Estimated GFR POC Glucose 64 246 H Random Glucose Calcium Phosphorus Magnesium Total Bilirubin AST ALT Alkaline Phosphatase Total Protein Albumin Urine Color Urine Appearance Urine pH Ur Specific [place] Urine Protein Urine Glucose (UA) Urine Ketones Urine Blood Urine Nitrite Ur Leukocyte Esterase Urine Opiates Screen Urine Fentanyl Screen Ur Barbiturates Screen Ur Phencyclidine Scrn Ur Amphetamines Screen U Benzodiazepines Scrn Urine Cocaine Screen U Marijuana (THC) Screen Microbiology Microbiology Results: Microbiology 04/15/22 10:34 Blood Culture - Preliminary Blood - Venous No growth after 24 hours. 04/15/22 09:28 Blood Culture - Preliminary Blood - Venous No growth after 24 hours. Assessment and Plan (1) Diabetic ketoacidosis: Status: Acute (2) Colitis: Status: Acute (3) Hypertension: Status: Acute Plan 61-year-old lady with underlying history of type 1 diabetes mellitus with diabetic gastroparesis, hypertension, hyperlipidemia evaluated in emergency room on 04/14/2022 for nausea, vomiting, and diffuse abdominal discomfort ongoing for [address] abdomen pelvis with possible early colitis.? Patient seen 04/13 in ER and diagnosed with colitis. Discharge to home however developed above symptoms in presented into the ER; Patient monitored in the emergency room for 17 hours with development of diabetic ketoacidosis requiring initiation of insulin drip and IV fluid support and admission to the intensive care unit. Successfully weaned off insulin drip and transferred to general medical floor 1. DmI with DKA -weaned off drip and discharged from ICU -hypoglycemic this a.m.; started on D5W; sugars responded appropriately -follow oral intake; continue Lantus at HS as per outpatient dosing along with D5 -DC IV dextrose when adequate p.o. intake and sugar stabilized 2. Colitis -continue Zosyn -follow up clinically along with CBC 3.HTN -on the soft side off of all meds -continue to follow clinically in add back therapies as indicated 4. Hyperlipidemia -continue statin as ordered Full code Heparin Requires ongoing hospitalization for IV dextrose while oral intake improves. Requires insulin and close monitoring of her blood sugar Time Spent With Patient Time: Total time managing care of this patient today ____ minutes. Quality Stroke Does the patient have a stroke diagnosis?: No VTE Prior VTE?: No VTE Risk Level:: Medical - moderate - high VTE Device Contraindication: Treatment Not Indicated VTE Drug Contraindication: N/A - Med Ordered
[2022-04-16 17:00] LABS: Glucose, Whole Blood 209 mg/dL (60-115)
[2022-04-16 20:00] LABS: Glucose, Whole Blood 120 mg/dL (60-115)
[2022-04-17] MEDS: Piperacillin Sodium/Tazobactam 3.375 GM in 0.9 % Sodium Chloride 50 ML IV (06:06)
[2022-04-17] MEDS: Heparin Sodium,Porcine 5,000 UNIT/ML VIAL 5000 UNIT SUBCUT ×3 (06:06→21:20)
[2022-04-17 06:36] LABS: MANUAL DIFF FLAG NO
[2022-04-17 06:42] LABS: Basophils Percent Auto 0.6 % (0-2); Eosinophils Absolute Auto 0.2 X10*3/uL (0.0-0.4); Eosinophils Percent Auto 3.3 % (0-4); Hematocrit 34.5 % (37.0-47.0); Hemoglobin 11.8 g/dl (12.0-16.0); Imm Gran Abs Auto 0.01 X10*3/uL (0.00-0.03); Imm Gran Pct Auto 0.2 % (0.0-0.4); Lymphocytes Absolute Auto 2.3 X10*3/uL (1.2-4.9); Lymphocytes Percent Auto 47.5 % (20-40); Mean Corpuscular HGB Conc 34.2 g/dl (31.0-35.0); Mean Corpuscular Hemoglobin 29.9 pg (27.0-33.0); Mean Corpuscular Volume 87.3 fL (80.0-98.0); Mean Platelet Volume 9.9 fL (9.4-12.3); Monocytes Absolute Auto 0.3 X10*3/uL (0.1-1.2); Neutrophils Percent Auto 41.4 % (45-73); Platelet Count 206 X10*3/uL (160-400); Red Blood Count 3.95 X10*6/uL (4.20-5.50); Red Cell Distribution Width 11.9 % (11.0-16.0); White Blood Count 4.9 X10*3/uL (4.8-10.8)
[2022-04-17 07:09] VITALS: BP 120/56; PULSE 73; RESP 16; TEMP 36.8; O2SAT 97
[2022-04-17 07:40] LABS: Alanine Aminotransferase 23 U/L (0-31); Albumin Level 2.9 g/dL (3.5-5.0); Alkaline Phosphatase 65 U/L (39-117); Aspartate Amino Transferase 26 U/L (5-31); Bilirubin Total 0.4 mg/dL (0.0-1.0); Blood Urea Nitrogen < 3 mg/dL (9-16); Calcium 7.9 mg/dL (8.4-10.2); Creatinine Clr Calc Pharmacy 60.2; Estimated Glomerular Filt Rate > 60; Glucose Fasting 240 mg/dL (60-99); Magnesium 1.6 mg/dL (1.6-2.6); Total Protein 4.7 g/dL (6.5-8.0)
[2022-04-17 07:50] LABS: Anion Gap 12 (12-20); Carbon Dioxide 25 mmol/L (22-29); Chloride 107 mmol/L (96-108); Potassium 3.5 mmol/L (3.3-5.1); Sodium 140 mmol/L (135-145)
[2022-04-17 08:00] LABS: Glucose, Whole Blood 208 mg/dL (60-115)
--- NOTE | 2022-04-17 08:00 | P.CDIC_ITS ---
CDI Concurrent Query Documentation Clarification: PHYSICIAN'S DOCUMENTATION REQUEST Date of Query: 04/17/22 0800 Patient Name: Ofe Gurrola Admit Date: 04/15/22 Dear Doctor, A review of the medical record indicates additional documentation may be needed. Please review below and update the documentation accordingly. Clinical Indicators: Is there a diagnosis that correlates to these lab findings: Risk Factors/Clinical Indicators/Treatments LABS 04/15 - potassium 2.8 L 3.0 L Klor-Con Based on the above, could you clarify in the Progress Notes the appropriate diagnosis, if significant, that supports the above abnormalities and additional evaluation, monitoring, and/or treatment rendered: * Hypokalemia or other etiology of lab findings * Labs indicate a diagnosis of (please specify) * Other (please specify) * Unable to determine Use of terms such as suspected, likely, concern for, or probable (associated with a specific diagnosis that is being evaluated, monitored, or treated as if it exists) are acceptable and can be coded in the inpatient setting, when documented at the time of discharge. Thank you, Rosa Mares [facility], CDIS Extension: [phone] Please use your independent medical judgment in providing your response. THIS QUERY IS PART OF THE PERMANENT MEDICAL RECORD Provider Response: Other Other Diagnosis: hypokalemia
[2022-04-17] MEDS: Insulin Lispro 100 UNIT/ML 3 ML VIAL SUBCUT ×3 (08:39→17:20)
[2022-04-17] MEDS: Multivitamin TABLET 1 TAB PO (08:40)
[2022-04-17 11:22] LABS: Glucose, Whole Blood 320 mg/dL (60-115)
[2022-04-17 11:57] VITALS: BP 118/59; PULSE 82; RESP 18; TEMP 37; O2SAT 97
[2022-04-17] MEDS: metroNIDAZOLE 500 MG TABLET PO ×2 (14:11→21:20)
[2022-04-17] MEDS: levoFLOXacin 500 MG TABLET PO (14:11)
--- NOTE | 2022-04-17 15:10 | HO.PM.IMPN ---
Subjective Subjective Date of Service: 04/17/22 Interval History: no acute issues overnight. Episodic diarrhea likely related to antibiotic Review of Systems Denies chest pain Denies shortness of breath admits diarrhea; denies nausea vomiting Denies fever chills Physical Exam Vital Signs: Vital Signs: Last Vital Signs Temp 98.6 F 04/17/22 11:57 Pulse 82 04/17/22 11:57 Resp 18 04/17/22 11:57 BP 118/59 L 04/17/22 11:57 Pulse Ox 97 04/17/22 11:57 O2 Del Method 04/17/22 11:57 BMI result Body Mass Index 22.4 Const: Other: Awake alert oriented x3 no acute distress Resp: Other: Clear to auscultation bilaterally no rales rhonchi or wheezes Cardio: Other: No S4; positive S1-S2; no S3 murmurs rubs or gallops GI: Other: Soft nontender nondistended normoactive bowel sounds Extrem: Other: No edema bilaterally Objective Data Active Medications Dextrose (Dextrose 50 % 25 Gm/50 Ml Syringe) 25 gm IVPUSH Q30M PRN PRN Reason: BG < 70 Heparin Sodium (Porcine) (Heparin Sodium,Porcine 5,000 Unit/Ml Vial) 5,000 unit SUBCUT Q8H [facility] Last Admin: 04/17/22 14:11 Dose: 5,000 unit Documented By: KONSTANTIN Insulin Human Lispro (Insulin Lispro 100 Unit/Ml 3 Ml Vial) 0 unit SUBCUT QIDACHS [facility]; Protocol Last Admin: 04/17/22 12:44 Dose: 8 unit Documented By: KONSTANTIN Levofloxacin (Levofloxacin 500 Mg Tablet) 500 mg PO Q24H [facility] Last Admin: 04/17/22 14:11 Dose: 500 mg Documented By: KONSTANTIN Metronidazole (Metronidazole 500 Mg Tablet) 500 mg PO Q8H [facility] Last Admin: 04/17/22 14:11 Dose: 500 mg Documented By: KONSTANTIN Multivitamins/Vitamin C (Multivitamin Tablet) 1 tab PO DAILY [facility] Last Admin: 04/17/22 08:40 Dose: 1 tab Documented By: KONSTANTIN Labs 04/17/22 05:40 04/17/22 05:40 Labs: Laboratory Results - last 24 hr 04/16/22 04/16/22 04/17/22 16:51 19:42 05:40 MCV 87.3 MCH 29.9 MCHC 34.2 RDW 11.9 Plt Count 206 MPV 9.9 Immature Gran % (Auto) 0.2 Neut % (Auto) 41.4 L Lymph % (Auto) 47.5 H [place] % (Auto) 7.0 Eos % (Auto) 3.3 Baso % (Auto) 0.6 Lymph # (Auto) 2.3 [place] # (Auto) 0.3 Eos # (Auto) 0.2 Baso # (Auto) 0.0 Abs Immat Gran (auto) 0.01 Absolute Neuts (auto) 2.0 Absolute Nucleated RBC 0.000 Nucleated RBC % (auto) 0.0 Anion Gap Estim Creat Clear Calc Estimated GFR POC Glucose 209 H 120 H Fasting Glucose Calcium Magnesium Total Bilirubin AST ALT Alkaline Phosphatase Total Protein Albumin 04/17/22 04/17/22 04/17/22 05:40 07:08 11:00 MCV MCH MCHC RDW Plt Count MPV Immature Gran % (Auto) Neut % (Auto) Lymph % (Auto) [place] % (Auto) Eos % (Auto) Baso % (Auto) Lymph # (Auto) [place] # (Auto) Eos # (Auto) Baso # (Auto) Abs Immat Gran (auto) Absolute Neuts (auto) Absolute Nucleated RBC Nucleated RBC % (auto) Anion Gap 12 Estim Creat Clear Calc 60.2 Estimated GFR > 60 POC Glucose 208 H 320 H Fasting Glucose 240 H Calcium 7.9 L Magnesium 1.6 Total Bilirubin 0.4 AST 26 ALT 23 Alkaline Phosphatase 65 Total Protein 4.7 L Albumin 2.9 L Microbiology Microbiology Results: Microbiology 04/15/22 10:34 Blood Culture - Preliminary Blood - Venous No growth after 48 hours. 04/15/22 09:28 Blood Culture - Preliminary Blood - Venous No growth after 48 hours. Assessment and Plan (1) Diabetic ketoacidosis: Status: Acute (2) Colitis: Status: Acute (3) Hypertension: Status: Acute Plan 61-year-old lady with underlying history of type 1 diabetes mellitus with diabetic gastroparesis, hypertension, hyperlipidemia evaluated in emergency room on 04/14/2022 for nausea, vomiting, and diffuse abdominal discomfort ongoing for [address] abdomen pelvis with possible early colitis.? Patient seen 04/13 in ER and diagnosed with colitis. Discharge to home however developed above symptoms in presented into the ER; Patient monitored in the emergency room for 17 hours with development of diabetic ketoacidosis requiring initiation of insulin drip and IV fluid support and admission to the intensive care unit. Successfully weaned off insulin drip and transferred to general medical floor 1. DmI with DKA - no further hypoglycemia. - Restart Lantus and adjust as indicated - advance diet as tolerated 2. Colitis - diarrhea likely reated to Zosyn; will switch to Levaquin and metronidazole -follow up clinically along with CBC 3.HTN -on the soft side off of all meds -continue to follow clinically in add back therapies as indicated 4. Hyperlipidemia -continue statin as ordered Full code Heparin Requires ongoing hospitalization for IV dextrose while oral intake improves. Requires insulin and close monitoring of her blood sugar Time Spent With Patient Time: Total time managing care of this patient today ____ minutes. Quality Stroke Does the patient have a stroke diagnosis?: No VTE Prior VTE?: No VTE Risk Level:: Medical - moderate - high VTE Device Contraindication: Treatment Not Indicated VTE Drug Contraindication: N/A - Med Ordered
[2022-04-17 15:34] VITALS: BP 122/57; PULSE 78; RESP 18; TEMP 36.1; O2SAT 99
[2022-04-17 16:44] LABS: Glucose, Whole Blood 390 mg/dL (60-115)
[2022-04-17] MEDS: Insulin Lispro 100 UNIT/ML 3 ML VIAL 10 UNIT SUBCUT (17:20)
[2022-04-17 19:41] VITALS: BP 126/58; PULSE 88; RESP 18; TEMP 36.2; O2SAT 99
[2022-04-17 20:31] LABS: Glucose, Whole Blood 135 mg/dL (60-115)
[2022-04-17 22:21] LABS: Glucose, Whole Blood 69 mg/dL (60-115)
[2022-04-17 23:02] LABS: Glucose, Whole Blood 125 mg/dL (60-115)
[2022-04-17 23:32] VITALS: BP 114/55; PULSE 93; RESP 16; TEMP 36.8; O2SAT 98
[2022-04-18 03:17] VITALS: BP 108/55; PULSE 95; RESP 16; TEMP 36.1; O2SAT 97
[2022-04-18] MEDS: metroNIDAZOLE 500 MG TABLET PO ×3 (04:20→20:44)
[2022-04-18 04:23] LABS: Glucose, Whole Blood 396 mg/dL (60-115)
--- NOTE | 2022-04-18 04:30 | MHC.PIE ---
P.POC 396 I.PT REQUESTED TO HAVE HER POC CHECKED SHE THOUGHT IT MIGHT BE LOW.LRV=291.REPORTED TO DR.MAZREAH SinghAWAIT REPLY
--- NOTE | 2022-04-18 05:30 | MHC.PIE ---
P.POC [address] SELLERS LEPYK=874.ORDERS GIVEN FOR 10 UNITS LISPRO PER SLIDING SCALE AND 15 MORE UNITS LISPRO PER MD ORDER. E.PT UPDATED AND INSULIN GIVEN.WILL CONT TO MONITOR.
[2022-04-18 05:39] LABS: Glucose, Whole Blood 448 mg/dL (60-115)
[2022-04-18] MEDS: Insulin Lispro 100 UNIT/ML 3 ML VIAL SUBCUT ×4 (05:45→20:44)
[2022-04-18] MEDS: Insulin Lispro 100 UNIT/ML 3 ML VIAL 15 UNIT SUBCUT (05:54)
[2022-04-18] MEDS: Heparin Sodium,Porcine 5,000 UNIT/ML VIAL 5000 UNIT SUBCUT ×3 (05:55→22:13)
--- NOTE | 2022-04-18 06:36 | PC.NURSE ---
POC FQKSHHP=240,CONT TO MONITOR
[2022-04-18 06:39] LABS: Glucose, Whole Blood 343 mg/dL (60-115)
[2022-04-18 06:59] VITALS: BP 123/61; PULSE 81; RESP 19; TEMP 36.7; O2SAT 98
[2022-04-18 07:18] LABS: Alanine Aminotransferase 28 U/L (0-31); Albumin Level 3.4 g/dL (3.5-5.0); Alkaline Phosphatase 76 U/L (39-117); Anion Gap 14 (12-20); Aspartate Amino Transferase 19 U/L (5-31); Bilirubin Total 0.4 mg/dL (0.0-1.0); Blood Urea Nitrogen 4 mg/dL (9-16); Carbon Dioxide 26 mmol/L (22-29); Chloride 102 mmol/L (96-108); Creatinine Clr Calc Pharmacy 51.3; Estimated Glomerular Filt Rate > 60; Potassium 3.3 mmol/L (3.3-5.1); Sodium 139 mmol/L (135-145); Total Protein 5.5 g/dL (6.5-8.0)
[2022-04-18 07:27] LABS: Calcium 8.8 mg/dL (8.4-10.2)
[2022-04-18 07:35] LABS: Glucose Fasting 392 mg/dL (60-99); Magnesium 1.4 mg/dL (1.6-2.6)
[2022-04-18 07:41] LABS: Glucose, Whole Blood 294 mg/dL (60-115)
[2022-04-18] MEDS: Magnesium Sulfate/H2O 2 GM/50 ML PIGGYBACK IV (07:55)
[2022-04-18] MEDS: Multivitamin TABLET 1 TAB PO (08:45)
[2022-04-18] MEDS: Insulin Glargine,Hum.rec.anlog 100 UNIT/ML 10 ML VIAL 20 UNIT SUBCUT (08:45)
[2022-04-18 11:03] VITALS: BP 128/60; PULSE 91; RESP 19; TEMP 36.7; O2SAT 97
[2022-04-18 11:27] LABS: Glucose, Whole Blood 171 mg/dL (60-115)
--- NOTE | 2022-04-18 11:27 | HO.PM.IMPN ---
Subjective Subjective Date of Service: 04/18/22 Interval History: no acute issues overnight. Episodic diarrhea improved with antibiotic change Review of Systems Denies chest pain Denies shortness of breath admits diarrhea; denies nausea vomiting Denies fever chills Physical Exam Vital Signs: Vital Signs: Last Vital Signs Temp 98.0 F 04/18/22 11:03 Pulse 91 04/18/22 11:03 Resp 19 04/18/22 11:03 BP 128/60 04/18/22 11:03 Pulse Ox 97 04/18/22 11:03 O2 Del Method 04/18/22 11:03 BMI result Body Mass Index 22.4 Const: Other: Awake alert oriented x3 no acute distress Resp: Other: Clear to auscultation bilaterally no rales rhonchi or wheezes Cardio: Other: No S4; positive S1-S2; no S3 murmurs rubs or gallops GI: Other: Soft nontender nondistended normoactive bowel sounds Extrem: Other: No edema bilaterally Objective Data Active Medications Dextrose (Dextrose 50 % 25 Gm/50 Ml Syringe) 25 gm IVPUSH Q30M PRN PRN Reason: BG < 70 Dextrose (Dextrose 50 % 25 Gm/50 Ml Syringe) 25 gm IVPUSH Q15M PRN; Protocol PRN Reason: per Hypoglycemia Standing Ord. Glucose (Glucose Gel 15 Gm Gel..Gram.) 15 gm PO Q15M PRN; Protocol PRN Reason: per Hypoglycemia Standing Ord. Heparin Sodium (Porcine) (Heparin Sodium,Porcine 5,000 Unit/Ml Vial) 5,000 unit SUBCUT Q8H [facility] Last Admin: 04/18/22 05:55 Dose: 5,000 unit Documented By: NADIA Insulin Glargine (Insulin Glargine,Hum.Rec.Anlog 100 Unit/Ml 10 Ml Vial) 25 unit SUBCUT BEDTIME [facility] Insulin Human Lispro (Insulin Lispro 100 Unit/Ml 3 Ml Vial) 0 unit SUBCUT QIDACHS [facility]; Protocol Last Admin: 04/18/22 08:45 Dose: 6 unit Documented By: KONSTANTIN Levofloxacin (Levofloxacin 500 Mg Tablet) 500 mg PO Q24H [facility] Last Admin: 04/17/22 14:11 Dose: 500 mg Documented By: KONSTANTIN Metronidazole (Metronidazole 500 Mg Tablet) 500 mg PO Q8H [facility] Last Admin: 04/18/22 04:20 Dose: 500 mg Documented By: NADIA Multivitamins/Vitamin C (Multivitamin Tablet) 1 tab PO DAILY [facility] Last Admin: 04/18/22 08:45 Dose: 1 tab Documented By: KONSTANTIN Labs 04/17/22 05:40 04/18/22 06:37 Labs: Laboratory Results - last 24 hr 04/17/22 04/17/22 04/17/22 16:30 20:27 22:16 Anion Gap Estim Creat Clear Calc Estimated GFR POC Glucose 390 H* 135 H 69 Fasting Glucose Calcium Magnesium Total Bilirubin AST ALT Alkaline Phosphatase Total Protein Albumin 04/17/22 04/18/22 04/18/22 22:57 04:19 05:35 Anion Gap Estim Creat Clear Calc Estimated GFR POC Glucose 125 H 396 H* 448 H* Fasting Glucose Calcium Magnesium Total Bilirubin AST ALT Alkaline Phosphatase Total Protein Albumin 04/18/22 04/18/22 04/18/22 06:35 06:37 06:57 Anion Gap 14 Estim Creat Clear Calc 51.3 Estimated GFR > 60 POC Glucose 343 H 294 H Fasting Glucose 392 H* Calcium 8.8 D Magnesium 1.4 L* Total Bilirubin 0.4 AST 19 ALT 28 Alkaline Phosphatase 76 Total Protein 5.5 L Albumin 3.4 L Microbiology Microbiology Results: Microbiology 04/15/22 10:34 Blood Culture - Preliminary Blood - Venous No growth after 48 hours. 04/15/22 09:28 Blood Culture - Preliminary Blood - Venous No growth after 48 hours. Assessment and Plan (1) Diabetes: Status: Acute (2) Colitis: Status: Acute (3) Hypertension: Status: Acute Plan 61-year-old lady with underlying history of type 1 diabetes mellitus with diabetic gastroparesis, hypertension, hyperlipidemia evaluated in emergency room on 04/14/2022 for nausea, vomiting, and diffuse abdominal discomfort ongoing for [address] abdomen pelvis with possible early colitis.? Patient seen 04/13 in ER and diagnosed with colitis. Discharge to home however developed above symptoms in presented into the ER; Patient monitored in the emergency room for 17 hours with development of diabetic ketoacidosis requiring initiation of insulin drip and IV fluid support and admission to the intensive care unit. Successfully weaned off insulin drip and transferred to general medical floor 1. DmI with DKA - no further hypoglycemia. - add am Lantus - advance diet as tolerated 2. Colitis - diarrhea likely reated to Zosyn; will switch to Levaquin and metronidazole -follow up clinically along with CBC 3.HTN -on the soft side off of all meds -continue to follow clinically in add back therapies as indicated 4. Hyperlipidemia -continue statin as ordered Full code Heparin Requires ongoing hospitalization for IV dextrose while oral intake improves. Requires insulin and close monitoring of her blood sugar Time Spent With Patient Time: Total time managing care of this patient today ____ minutes. Quality Stroke Does the patient have a stroke diagnosis?: No VTE Prior VTE?: No VTE Risk Level:: Medical - moderate - high VTE Device Contraindication: Treatment Not Indicated VTE Drug Contraindication: N/A - Med Ordered
[2022-04-18] MEDS: levoFLOXacin 500 MG TABLET PO (12:04)
--- NOTE | 2022-04-18 13:38 | MHC.CM.PN ---
PER MD ROUNDS, PATIENT STILL LABILE. POSSIBLE RETURN HOME WITH FAMILY ON THURSDAY
[2022-04-18 15:09] VITALS: BP 124/59; PULSE 84; RESP 18; TEMP 37.1; O2SAT 99
[2022-04-18 15:59] LABS: Glucose, Whole Blood 143 mg/dL (60-115)
[2022-04-18 19:17] VITALS: BP 118/58; PULSE 80; RESP 18; TEMP 36.9; O2SAT 99
[2022-04-18 20:32] LABS: Glucose, Whole Blood 301 mg/dL (60-115)
[2022-04-18] MEDS: Insulin Glargine,Hum.rec.anlog 100 UNIT/ML 10 ML VIAL 25 UNIT SUBCUT (20:45)
[2022-04-18 23:45] VITALS: BP 98/50; PULSE 99; RESP 18; TEMP 37.3; O2SAT 96
[2022-04-19 04:00] VITALS: BP 99/50; PULSE 63; RESP 18; TEMP 36.9; O2SAT 99
[2022-04-19] MEDS: metroNIDAZOLE 500 MG TABLET PO ×3 (05:30→21:33)
[2022-04-19] MEDS: Heparin Sodium,Porcine 5,000 UNIT/ML VIAL 5000 UNIT SUBCUT ×3 (06:24→22:20)
[2022-04-19 07:38] LABS: Glucose, Whole Blood 47 mg/dL (60-115)
[2022-04-19] MEDS: Multivitamin TABLET 1 TAB PO (07:39)
[2022-04-19] MEDS: Glucose Gel 15 GM GEL..GRAM. PO (07:39)
[2022-04-19 08:00] VITALS: BP 113/57; PULSE 83; RESP 18; TEMP 36.2; O2SAT 99
[2022-04-19 08:00] LABS: Glucose, Whole Blood 61 mg/dL (60-115)
[2022-04-19 08:09] LABS: Alanine Aminotransferase 24 U/L (0-31); Albumin Level 3.5 g/dL (3.5-5.0); Alkaline Phosphatase 72 U/L (39-117); Anion Gap 14 (12-20); Aspartate Amino Transferase 17 U/L (5-31); Bilirubin Total 0.3 mg/dL (0.0-1.0); Blood Urea Nitrogen 5 mg/dL (9-16); Calcium 8.9 mg/dL (8.4-10.2); Carbon Dioxide 30 mmol/L (22-29); Chloride 105 mmol/L (96-108); Creatinine Clr Calc Pharmacy 62.6; Estimated Glomerular Filt Rate > 60; Glucose Fasting 47 mg/dL (60-99); Magnesium 1.6 mg/dL (1.6-2.6); Potassium 3.6 mmol/L (3.3-5.1); Sodium 145 mmol/L (135-145); Total Protein 5.7 g/dL (6.5-8.0)
[2022-04-19 11:24] LABS: Glucose, Whole Blood 235 mg/dL (60-115)
[2022-04-19] MEDS: Insulin Lispro 100 UNIT/ML 3 ML VIAL SUBCUT ×3 (12:02→21:32)
[2022-04-19] MEDS: levoFLOXacin 500 MG TABLET PO (14:03)
--- NOTE | 2022-04-19 14:19 | HO.PM.IMPN ---
Subjective Subjective Date of Service: 04/19/22 Interval History: states feels much better. Sugars stable but still high Review of Systems Denies chest pain Denies shortness of breath admits diarrhea; denies nausea vomiting Denies fever chills Physical Exam Vital Signs: Vital Signs: Last Vital Signs Temp 97.1 F 04/19/22 08:00 Pulse 83 04/19/22 08:00 Resp 18 04/19/22 08:00 BP 113/57 L 04/19/22 08:00 Pulse Ox 99 04/19/22 08:00 O2 Del Method 04/19/22 08:00 BMI result Body Mass Index 22.4 Const: Other: Awake alert oriented x3 no acute distress Resp: Other: Clear to auscultation bilaterally no rales rhonchi or wheezes Cardio: Other: No S4; positive S1-S2; no S3 murmurs rubs or gallops GI: Other: Soft nontender nondistended normoactive bowel sounds Extrem: Other: No edema bilaterally Objective Data Active Medications Dextrose (Dextrose 50 % 25 Gm/50 Ml Syringe) 25 gm IVPUSH Q30M PRN PRN Reason: BG < 70 Dextrose (Dextrose 50 % 25 Gm/50 Ml Syringe) 25 gm IVPUSH Q15M PRN; Protocol PRN Reason: per Hypoglycemia Standing Ord. Glucose (Glucose Gel 15 Gm Gel..Gram.) 15 gm PO Q15M PRN; Protocol PRN Reason: per Hypoglycemia Standing Ord. Last Admin: 04/19/22 07:39 Dose: 15 gm Documented By: JOAN Heparin Sodium (Porcine) (Heparin Sodium,Porcine 5,000 Unit/Ml Vial) 5,000 unit SUBCUT Q8H [facility] Last Admin: 04/19/22 14:03 Dose: 5,000 unit Documented By: JOAN Insulin Glargine (Insulin Glargine,Hum.Rec.Anlog 100 Unit/Ml 10 Ml Vial) 25 unit SUBCUT BEDTIME [facility] Last Admin: 04/18/22 20:45 Dose: 25 unit Documented By: XAVIER-MERLE Insulin Human Lispro (Insulin Lispro 100 Unit/Ml 3 Ml Vial) 0 unit SUBCUT QIDACHS [facility]; Protocol Last Admin: 04/19/22 12:02 Dose: 4 unit Documented By: JOAN Levofloxacin (Levofloxacin 500 Mg Tablet) 500 mg PO Q24H [facility] Last Admin: 04/19/22 14:03 Dose: 500 mg Documented By: JOAN Metronidazole (Metronidazole 500 Mg Tablet) 500 mg PO Q8H [facility] Last Admin: 04/19/22 14:03 Dose: 500 mg Documented By: JOAN Multivitamins/Vitamin C (Multivitamin Tablet) 1 tab PO DAILY [facility] Last Admin: 04/19/22 07:39 Dose: 1 tab Documented By: JOAN Labs 04/17/22 05:40 04/19/22 05:27 Labs: Laboratory Results - last 24 hr 04/18/22 04/18/22 04/19/22 15:13 20:18 05:27 Anion Gap 14 Estim Creat Clear Calc 62.6 Estimated GFR > 60 POC Glucose 143 H 301 H Fasting Glucose 47 L* Calcium 8.9 Magnesium 1.6 Total Bilirubin 0.3 AST 17 ALT 24 Alkaline Phosphatase 72 Total Protein 5.7 L Albumin 3.5 04/19/22 04/19/22 04/19/22 07:33 07:57 11:20 Anion Gap Estim Creat Clear Calc Estimated GFR POC Glucose 47 L* 61 235 H Fasting Glucose Calcium Magnesium Total Bilirubin AST ALT Alkaline Phosphatase Total Protein Albumin Assessment and Plan (1) Diabetic ketoacidosis: Status: Acute (2) Diabetes: Status: Acute (3) Hypertension: Status: Acute Plan 61-year-old lady with underlying history of type 1 diabetes mellitus with diabetic gastroparesis, hypertension, hyperlipidemia evaluated in emergency room on 04/14/2022 for nausea, vomiting, and diffuse abdominal discomfort ongoing for [address] abdomen pelvis with possible early colitis.? Patient seen 04/13 in ER and diagnosed with colitis. Discharge to home however developed above symptoms in presented into the ER; Patient monitored in the emergency room for 17 hours with development of diabetic ketoacidosis requiring initiation of insulin drip and IV fluid support and admission to the intensive care unit. Successfully weaned off insulin drip and transferred to general medical floor 1. DmI with DKA - no further hypoglycemia. - Lantus b.i.d. with favorable response - advance diet as tolerated 2. Colitis - diarrhea likely reated to Zosyn; improved -follow up clinically along with CBC 3.HTN -on the soft side off of all meds -continue to follow clinically in add back therapies as indicated 4. Hyperlipidemia -continue statin as ordered Full code Heparin Requires ongoing hospitalization for IV dextrose while oral intake improves. Requires insulin and close monitoring of her blood sugar Time Spent With Patient Time: Total time managing care of this patient today ____ minutes. Quality Stroke Does the patient have a stroke diagnosis?: No VTE Prior VTE?: No VTE Risk Level:: Medical - moderate - high VTE Device Contraindication: Treatment Not Indicated VTE Drug Contraindication: N/A - Med Ordered
[2022-04-19 15:46] VITALS: BP 116/56; PULSE 92; RESP 18; O2SAT 98
[2022-04-19 17:13] LABS: Glucose, Whole Blood 245 mg/dL (60-115)
[2022-04-19 20:09] VITALS: BP 120/73; PULSE 86; RESP 18; TEMP 36.6; O2SAT 99
[2022-04-19 20:24] LABS: Glucose, Whole Blood 183 mg/dL (60-115)
[2022-04-19] MEDS: Insulin Glargine,Hum.rec.anlog 100 UNIT/ML 10 ML VIAL 25 UNIT SUBCUT (21:32)
[2022-04-20] VITALS: BP 107/55; RESP 18; TEMP 36.6; O2SAT 98
[2022-04-20 03:23] VITALS: BP 119/57; PULSE 74; RESP 18; TEMP 36.6; O2SAT 98
[2022-04-20] MEDS: metroNIDAZOLE 500 MG TABLET PO ×2 (05:48→11:23)
[2022-04-20] MEDS: Heparin Sodium,Porcine 5,000 UNIT/ML VIAL 5000 UNIT SUBCUT (05:48)
[2022-04-20 07:58] LABS: Glucose, Whole Blood 102 mg/dL (60-115)
[2022-04-20 08:00] VITALS: BP 126/58; PULSE 80; RESP 18; TEMP 36.8; O2SAT 98
[2022-04-20] MEDS: Multivitamin TABLET 1 TAB PO (09:08)
--- NOTE | 2022-04-20 11:12 | PM.DS ---
DS: Providers Provider Date of Service: 04/20/22 Date of admission: 04/15/22 06:47 Date of discharge: 04/20/22 Primary care physician: Jaymie Mireles NP DS: Diagnosis Discharge Diagnosis (1) Diabetic ketoacidosis: Status: Acute (2) Diabetes: Status: Acute (3) Hypertension: Status: Acute (4) Colitis: Status: Acute DS: Summary Hospital Course Hospital Course: 61-year-old lady with underlying history of type 1 diabetes mellitus with diabetic gastroparesis, hypertension, hyperlipidemia evaluated in emergency room on 04/14/2022 for nausea, vomiting, and diffuse abdominal discomfort ongoing for [address] abdomen pelvis with possible early colitis.? Patient monitored in the emergency room for 17 hours with development of diabetic ketoacidosis requiring initiation of insulin drip and IV fluid support and admission to the intensive care unit. Gap closed inpatient successfully weaned off insulin drip. Patient was maintained on Zosyn for colitis however developed significant diarrhea. Subsequently switched to Levaquin and metronidazole without issue. Over the next 48-72 hours sugar stabilized to the point where she is comfortable going home and managing this on her own. She will continue her Lantus and lispro sliding scale and completed course of Levaquin and Flagyl. She can follow-up with PCP in 2 weeks and referral to Endocrine at PCP discretion Time Spent with Patient Time attestation: Total time managing care of this patient today ____ minutes. Discharge coordination time: Greater than 30 minutes Quality: Safe Use of Opioids Does Pt have an Active Cancer Diagnosis on the Problem List?: No Quality: Stroke Does the patient have a stroke diagnosis?: No Physical Exam Vital Signs: Vital Signs: Last Vital Signs Temp 98.3 F 04/20/22 08:00 Pulse 80 04/20/22 08:00 Resp 18 04/20/22 08:00 BP 126/58 L 04/20/22 08:00 Pulse Ox 98 04/20/22 08:00 O2 Del Method 04/20/22 08:00 BMI result Body Mass Index 22.4 Const: Other: Awake alert oriented x3 no acute distress Resp: Other: Clear to auscultation bilaterally no rales rhonchi or wheezes Cardio: Other: No S4; positive S1-S2; no S3 murmurs rubs or gallops GI: Other: Soft nontender nondistended normoactive bowel sounds Extrem: Other: No edema bilaterally DS: Data Data Completed and Pending Labs on day of discharge: Laboratory Results - last 24 hr 04/19/22 04/19/22 04/19/22 11:20 17:04 20:15 POC Glucose 235 H 245 H 183 H 04/20/22 07:49 POC Glucose 102 Preliminary micro results at discharge 04/15/22 10:34 Blood Culture - Preliminary Blood - Venous No growth after 48 hours. 04/15/22 09:28 Blood Culture - Preliminary Blood - Venous No growth after 48 hours. Discharge Plan Discharge Anticipated Discharge Date/Time: 04/20/22 11:07 Patient Disposition: Home, Self-Care Discharge Diagnosis: Diabetic Ketoacidosis Referrals: Jaymie Mireles NP [Primary Care Provider] - 1 Week Discharge Medications: New metronidazole 500 mg Tablet 500 mg PO Q8H Qty: 21 0RF levofloxacin 500 mg Tablet 500 mg PO Q24H Qty: 7 0RF Continued lisinopril 5 mg tablet 5 mg PO DAILY rosuvastatin 20 mg tablet 20 mg PO BEDTIME insulin glargine [Lantus Solostar U-100 Insulin] 100 unit/mL (3 mL) insulin pen 25 unit subcut BEDTIME multivitamin [Daily Multi-Vitamin] Tablet 1 tab PO DAILY insulin lispro [Humalog KwikPen Insulin] 100 unit/mL insulin pen See Protocol subcut TIDWMEAL Protocol: Insulin Correction Scale Less than or equal to 110 ---- Give (units): 0 111 to 150 Give (units): 0 151 to 200 Give (units): 2 201 to 250 Give (units): 4 251 to 300 Give (units): 6 301 to 350 Give (units): 8 Greater than 350 Give (units): 10 Call MD if Blood Glucose > : 350 Discharge Orders: Discharge Order (Routine); Ordered 04/20/22 Ordered By: Tay Wilson Diet: Advance to usual diet Activity on Discharge: As tolerated Stand Alone Forms: Patient Portal Discharge page Care Plan Goals: resume your insulin regimen as previous. complete course of Levaquin 250 mg daily for 7 days along with metronidazole 500 mg 3 times a day for 7 days. No alcohol 1 week after last metronidazole dosing Health Concerns: continue to check your sugars 4 times a day and record them and a log Plan of Treatment: follow-up with PCP /endocrine Assessment: see discharge summary
[2022-04-20] MEDS: levoFLOXacin 500 MG TABLET PO (11:23)
[2022-04-20] MEDS: Insulin Lispro 100 UNIT/ML 3 ML VIAL SUBCUT (11:24)
[2022-04-20 11:29] LABS: Glucose, Whole Blood 238 mg/dL (60-115)
== END 2022-04-20 13:17 | disposition home or self-care (01) | DRG 420 ==
LOC: HO.ED 04-15 01:06 → HO.EDOVER 04-15 07:12 → HO.ICU 04-15 07:32 → HO.S3 04-16 00:22
PROVIDERS: Internal Medicine; Physician Assistant; Registered Nurse Community Health; Admitting Provider Internal Medicine Pulmonary Disease; Emergency Provider Emergency Medicine; PCP Nurse Practitioner Family; Visit Provider Hospitalist
DX: E10.10 Type 1 diabetes mellitus with ketoacidosis without coma (principal); E10.43 Type 1 diabetes mellitus with diabetic autonomic (poly)neuropathy; K31.84 Gastroparesis; K52.1 Toxic gastroenteritis and colitis; T36.0X5A Adverse effect of penicillins, initial encounter; E78.5 Hyperlipidemia, unspecified; E87.6 Hypokalemia; I10 Essential (primary) hypertension; Z20.822 Contact with and (suspected) exposure to COVID-19; Z79.899 Other long term (current) drug therapy
CPT/HCPCS: 36415; 74177; 80048; 80053; 80076; 80307; 81003; 82009; 82803; 82947; 83036; 83605; 83735; 84100; 85025; 87040; 87635; 99285; J1643; J2405; J2543; J2765; J3475; Q9967

== ENCOUNTER 2022-08-16 08:43 | Outpatient (REF) | payer OTHER, SELFPAY ==
[2022-08-16 09:43] LABS: Estimated Average Glucose 283 mg/dL; Hemoglobin A1c % 11.5 %
[2022-08-16 10:10] LABS: Cholesterol 192 mg/dL; Glucose Random 81 mg/dL (60-115); HDL Cholesterol 87 mg/dL; LDL Cholesterol Calculated 96 mg/dl; Triglycerides 46 mg/dL
[2022-08-18 02:22] LABS: C Peptide 0.11 ng/mL (0.80-3.85)
[2022-08-20 15:54] LABS: Glutamic acid decarboxylase Ab 140 IU/mL (<5)
[2022-08-22 14:58] LABS: Insulinoma associated 2 aatb >350.0 U/mL (<5.4)
== END 2022-08-16 08:44 | disposition home or self-care (01) ==
LOC: HO.LAB 08:43
PROVIDERS: PCP Nurse Practitioner Family; Visit Provider Internal Medicine Endocrinology, Diabetes & Metabolism
DX: E10.29 Type 1 diabetes mellitus with other diabetic kidney complication (principal); E78.5 Hyperlipidemia, unspecified; R80.9 Proteinuria, unspecified
CPT/HCPCS: 36415; 80061; 82947; 83036; 84681; 86341

== ENCOUNTER 2023-01-10 09:44 | Outpatient (REF) | payer OTHER, SELFPAY | END 2023-01-10 09:45 | disposition home or self-care (01) | LOC: HO.MAMMO 09:44 | PROVIDERS: PCP Nurse Practitioner Family; Visit Provider Nurse Practitioner Family | DX: Z12.31 Encounter for screening mammogram for malignant neoplasm of breast (principal) | CPT/HCPCS: 77063; 77067 ==

== ENCOUNTER → 2023-01-10 10:00 | Outpatient (BNV) | payer OTHER, SELFPAY | PROVIDERS: PCP Nurse Practitioner Family; Visit Provider Radiology Diagnostic Radiology | DX: Z12.31 Encounter for screening mammogram for malignant neoplasm of breast (principal) | CPT/HCPCS: 77063; 77067 ==

== ENCOUNTER 2024-01-05 14:29 | Emergency (ER) | payer OTHER, SELFPAY ==
[2024-01-05 14:55] VITALS: BP 151/63; PULSE 89; RESP 16; TEMP 36.8; O2SAT 99; BMI 28.8
--- NOTE | 2024-01-05 14:58 | ED.GENADULT ---
HPI - General Adult General Chief complaint: Skin/Abscess/Foreign Body Stated complaint: arm infection Time Seen by Provider: 01/06/24 00:52 History of Present Illness ED Provider: Rhiannon ANN narrative: The patient is a 63-year-old woman who is a type 1 diabetic. She comes to the emergency room for evaluation of an area of redness and pain at the site of her glucose monitoring device. She has had pain and redness for about 2 days. No fever, sweats, chills. Related Data Home Medications ?Medication ?Instructions ?Recorded ?Confirmed insulin glargine 100 unit/mL (3 25 unit subcut BEDTIME 04/15/22 04/15/22 mL) subcutaneous pen (Lantus Solostar U-100 Insulin) insulin lispro 100 unit/mL See Protocol subcut TIDWMEAL 04/15/22 04/15/22 subcutaneous pen (Humalog KwikPen (U-100) Insulin) lisinopril 5 mg tablet 5 mg PO DAILY 04/15/22 04/15/22 multivitamin (Daily Multi-Vitamin 1 tab PO DAILY 04/15/22 04/15/22 tablet) rosuvastatin 20 mg tablet 20 mg PO BEDTIME 04/15/22 04/15/22 Previous Rx's ?Medication ?Instructions ?Recorded levofloxacin 500 mg tablet 500 mg PO Q24H #7 tabs 04/20/22 metronidazole 500 mg tablet 500 mg PO Q8H #21 tabs 04/20/22 sulfamethoxazole 800 1 tab PO BID 8 days #16 tabs 01/06/24 mg-trimethoprim 160 mg tablet (Bactrim DS) Allergies Allergy/AdvReac Type Severity Reaction Status Date / Time No Known Allergies Allergy Verified 01/05/24 14:57 [facility] Social History Social History Household Members: Family and Children Housing: House Do you presently have visiting nurse or other home services: No Alcohol intake: current Alcohol intake frequency: holidays/special occasions only Patient Tobacco Use Status: Never used Tobacco e-Cigarette/Vaping Use: Never Used Second Hand Smoke Exposure: No Advance Directives: Yes Advance Directives on File: Yes Advance Directives Date on File: 04/21/22 service: No Current occupational status: retired Physical Exam ED Vital Signs: Vital Signs - 24 hr 01/05/24 14:55 01/05/24 22:01 01/06/24 00:42 Temperature 98.2 F 97.5 F 98.5 F Pulse Rate 89 87 82 Respiratory Rate 16 16 18 Blood Pressure 151/63 H 127/49 L 135/58 L Pulse Oximetry 99 96 97 Oxygen Delivery Method Room Air Room Air Room Air 01/06/24 01:27 Temperature 98.5 F Pulse Rate 82 Respiratory Rate 18 Blood Pressure 135/58 L Pulse Oximetry 97 Oxygen Delivery Method Room Air BMI result Body Mass Index 28.8 Const Other: The patient is awake and alert, pleasant and cooperative. She is nontoxic. HENMI Head: Yes normal to inspection Face and sinus: Yes normal facial exam Mouth: Normal oral and palatal mucosa present Skin Other: The patient has an area of erythema in the lateral aspect of the mid right upper arm. The erythema has the appearance of an area of cellulitis. In the center of the erythema was a small pustule. And I applied some pressure to the area of erythema pus emerged from the area of the pustule. There was more pus than I expected. Neuro Other: The patient is awake and alert with a normal mental status. Extrem Other: The patient has some redness to the right upper arm but the arm is otherwise unremarkable and the patient can use the arm normally. Course Course Course Narrative: This is a rapid medical exam performed by Yan Orourke NP: Additional HPI, ROS, PE not included below will be deferred to primary provider. Patient is a 63-year-old female with history of diabetes presenting to the emergency department with concern for infection to right upper arm. States that she removed her continuous glucose monitor on Thursday and noted redness to the area. Now has a small pustule centrally. Denies fevers, chills, body aches. Sent by PCP. Plan: Labs Reevaluation(s) Reevaluation #1: Gram stain and culture return positive for MRSA 4+, sensitive to clindamycin, Bactrim, vancomycin. Resistant to erythromycin, oxacillin, pen G, tetracycline. Patient was prescribed the appropriate antibiotic (bactrim) -- I did contact patient regarding results. She states that the infection within her arm is improving with the antibiotics. I did inform her of results. I advised her to return to the ED with any new or worsening symptoms. She verbalizes understanding. Medications Administered Discontinued Medications Generic Name Dose Route Start Last Admin Trade Name Campbell PRN Reason Stop Dose Admin Acetaminophen 650 mg 01/05/24 22:04 01/05/24 22:07 Acetaminophen 325 Mg Tablet PO 01/05/24 22:05 650 mg ONCE ONE Administration Trimethoprim/Sulfamethoxazole 1 tab 01/06/24 01:00 01/06/24 01:05 Sulfamethox/Trimeth 800/160 Tablet PO 01/06/24 01:01 1 tab ONCE ONE Administration Procedures Abscess I/D Site: upper extremity (Right upper arm midshaft laterally) Side (if applicable): right Local Anesthetic: lidocaine 1% Amount of anesthesia used (mL): 1.5 Technique: incised with blade Sent for culture/gram staining?: Yes Irrigation: No Packing used?: none Medical Decision Making Medical Decision Making [facility] Narrative: The patient has a small area of soft tissue skin infection in the mid right upper arm laterally. There is an abscess component to this infection as I was able to express a fair amount of pus. After explaining the procedure to the patient I performed a small incision and drainage procedure. The skin was prepped with Betadine. Skin around the drainage site in the middle of the erythema was anesthetized with 1% plain lidocaine. I then made a small incision with a 11. Blade to assist with expressing pus from the infection. The pus was swabbed and sent for culture. The patient tolerated the procedure well. She was started on Bactrim. Lab Data 01/05/24 15:59 01/05/24 15:59 Labs: Lab Results 01/05/24 Range/Units 15:59 WBC 10.2 (4.8-10.8) X10*3/uL RBC 4.32 (4.20-5.50) X10*6/uL Hgb 12.9 (12.0-16.0) g/dl Hct 37.2 (37.0-47.0) % MCV 86.1 (80.0-98.0) fL MCH 29.9 (27.0-33.0) pg MCHC 34.7 (31.0-35.0) g/dl RDW 12.4 (11.0-16.0) % Plt Count 276 D (160-400) X10*3/uL MPV 9.5 (9.4-12.3) fL Immature Gran % (Auto) 0.3 (0.0-0.4) % Neut % (Auto) 71.3 (45-73) % Lymph % (Auto) 19.8 L (20-40) % [place] % (Auto) 6.7 (2-11) % Eos % (Auto) 1.5 (0-4) % Baso % (Auto) 0.4 (0-2) % Lymph # (Auto) 2.0 (1.2-4.9) X10*3/uL [place] # (Auto) 0.7 (0.1-1.2) X10*3/uL Eos # (Auto) 0.2 (0.0-0.4) X10*3/uL Baso # (Auto) 0.0 (0.0-0.2) X10*3/uL Abs Immat Gran (auto) 0.03 (0.00-0.03) X10*3/uL Absolute Neuts (auto) 7.3 (2.0-8.3) x10*3/uL Absolute Nucleated RBC 0.000 (0.0-0.012) X10*3/uL Nucleated RBC % (auto) 0.0 (0.0-0.2) /100WBC Sodium 141 (135-145) mmol/L Potassium 4.2 (3.3-5.1) mmol/L Chloride 101 (96-108) mmol/L Carbon Dioxide 29 (22-29) mmol/L Anion Gap 15 (12-20) BUN 7 L (9-16) mg/dL Creatinine 0.79 (0.5-1.4) mg/dL Estim Creat Clear Calc 65.6 Estimated GFR > 60 Random Glucose 285 H (60-115) mg/dL Calcium 10.0 D (8.4-10.2) mg/dL Total Bilirubin 0.4 (0.0-1.0) mg/dL AST 23 (5-31) U/L ALT 21 (0-31) U/L Alkaline Phosphatase 82 (39-117) U/L Total Protein 7.5 (6.5-8.0) g/dL Albumin 4.2 (3.5-5.0) g/dL Discharge Plan Discharge Clinical Impression: Skin infection Patient Disposition: Home, Self-Care Instructions: Abscess Incision and Drainage (DC) Additional Instructions: You have an infection in the right upper arm that was associated with a small abscess with pus. An incision was made through the area of pus to help allow drainage of the pus. You were started on an antibiotic, sulfamethoxazole-trimethoprim (also known as Bactrim). Please take this 2 times a day as prescribed. Keep wound clean and dry and covered. You may squeeze the area every now and then to help encourage drainage. You may also apply warm compresses to the area. Please stay in touch with your regular doctor for additional advice as needed. Return to the emergency room if significantly worse. Prescriptions: New sulfamethoxazole-trimethoprim [Bactrim DS] 800-160 mg tablet 1 tab PO BID 8 Days Qty: 16 0RF No Action lisinopril 5 mg tablet 5 mg PO DAILY rosuvastatin 20 mg tablet 20 mg PO BEDTIME insulin glargine [Lantus Solostar U-100 Insulin] 100 unit/mL (3 mL) insulin pen 25 unit subcut BEDTIME multivitamin [Daily Multi-Vitamin] Tablet 1 tab PO DAILY insulin lispro [Humalog KwikPen Insulin] 100 unit/mL insulin pen See Protocol subcut TIDWMEAL Protocol: Insulin Correction Scale Less than or equal to 110 ---- Give (units): 0 111 to 150 Give (units): 0 151 to 200 Give (units): 2 201 to 250 Give (units): 4 251 to 300 Give (units): 6 301 to 350 Give (units): 8 Greater than 350 Give (units): 10 Call MD if Blood Glucose > : 350 metronidazole 500 mg Tablet 500 mg PO Q8H Qty: 21 0RF levofloxacin 500 mg Tablet 500 mg PO Q24H Qty: 7 0RF Stand Alone Forms: Work/School Release Interventions: ED Discharge Assessment Last Done: 01/06/24 01:27 Discharge Date/Time: 01/06/24 01:29 Print Language: Burmese
[2024-01-05 16:03] LABS: MANUAL DIFF FLAG NO
[2024-01-05 16:10] LABS: Basophils Percent Auto 0.4 % (0-2); Eosinophils Absolute Auto 0.2 X10*3/uL (0.0-0.4); Eosinophils Percent Auto 1.5 % (0-4); Hematocrit 37.2 % (37.0-47.0); Hemoglobin 12.9 g/dl (12.0-16.0); Imm Gran Abs Auto 0.03 X10*3/uL (0.00-0.03); Imm Gran Pct Auto 0.3 % (0.0-0.4); Lymphocytes Percent Auto 19.8 % (20-40); Mean Corpuscular HGB Conc 34.7 g/dl (31.0-35.0); Mean Corpuscular Hemoglobin 29.9 pg (27.0-33.0); Mean Corpuscular Volume 86.1 fL (80.0-98.0); Mean Platelet Volume 9.5 fL (9.4-12.3); Monocytes Absolute Auto 0.7 X10*3/uL (0.1-1.2); Monocytes Percent Auto 6.7 % (2-11); Neutrophils Absolute Auto 7.3 x10*3/uL (2.0-8.3); Neutrophils Percent Auto 71.3 % (45-73); Platelet Count 276 X10*3/uL (160-400); Red Blood Count 4.32 X10*6/uL (4.20-5.50); Red Cell Distribution Width 12.4 % (11.0-16.0); White Blood Count 10.2 X10*3/uL (4.8-10.8)
[2024-01-05 16:20] LABS: Albumin Level 4.2 g/dL (3.5-5.0); Alkaline Phosphatase 82 U/L (39-117); Anion Gap 15 (12-20); Aspartate Amino Transferase 23 U/L (5-31); Bilirubin Total 0.4 mg/dL (0.0-1.0); Blood Urea Nitrogen 7 mg/dL (9-16); Carbon Dioxide 29 mmol/L (22-29); Chloride 101 mmol/L (96-108); Creatinine Clr Calc Pharmacy 65.6; Estimated Glomerular Filt Rate > 60; Glucose Random 285 mg/dL (60-115); Potassium 4.2 mmol/L (3.3-5.1); Sodium 141 mmol/L (135-145); Total Protein 7.5 g/dL (6.5-8.0)
[2024-01-05 16:47] LABS: Alanine Aminotransferase 21 U/L (0-31)
[2024-01-05 22:01] VITALS: BP 127/49; PULSE 87; RESP 16; TEMP 36.4; O2SAT 96
[2024-01-05] MEDS: Acetaminophen 325 MG TABLET 650 MG PO (22:07)
[2024-01-06 00:42] VITALS: BP 135/58; PULSE 82; RESP 18; TEMP 36.9; O2SAT 97
[2024-01-06] MEDS: Sulfamethox/Trimeth 800/160 TABLET 1 TAB PO (01:05)
[2024-01-06 01:27] VITALS: BP 135/58; PULSE 82; RESP 18; TEMP 36.9; O2SAT 97
== END 2024-01-06 01:29 | disposition home or self-care (01) ==
PROVIDERS: Registered Nurse Emergency; Emergency Provider Emergency Medicine; PCP Nurse Practitioner Family
DX: L08.9 Local infection of the skin and subcutaneous tissue, unspecified (principal); L98.9 Disorder of the skin and subcutaneous tissue, unspecified; Z79.899 Other long term (current) drug therapy
CPT/HCPCS: 10060; 36415; 80053; 85025; 87070; 87077; 87186; 87205; 99283; 99284

== ENCOUNTER 2024-01-16 09:43 | Outpatient (REF) | payer OTHER, SELFPAY ==
--- NOTE | ~2024-01-16 | MM_ITS ---
EXAMINATION: MM SCREENING DIGITAL BREAST TOMOSYNTHESIS, BILATERAL CLINICAL INFORMATION: Screening. Asymptomatic. COMPARISON: Mammography: Comparison is made with available priors TECHNIQUE: Digital breast mammography with tomosynthesis is performed in both the craniocaudal and mediolateral oblique views along with computer-aided detection (CAD). FINDINGS: There are scattered areas of fibroglandular density (ACR BI-RADS breast composition Category b). There are no significant masses, abnormal calcifications, or other abnormalities. MM/MM tomosynthesis screening BI IMPRESSION: No mammographic evidence of malignancy. ASSESSMENT: BI-RADS BI-RADS 1 - Negative RECOMMENDATION: Routine annual mammography screening. 1 year F/U This examination should not preclude the clinical evaluation of a suspicious palpable abnormality. This patient's information was entered into a reminder system with a target due date for their next mammogram. Electronically signed by: Patricia Brand DO 01/27/2024 12:07 PM [facility]
== END 2024-01-16 09:44 | disposition home or self-care (01) ==
LOC: HO.MAMMO 09:43
PROVIDERS: PCP Nurse Practitioner Family; Visit Provider Nurse Practitioner Family
DX: Z12.31 Encounter for screening mammogram for malignant neoplasm of breast (principal)
CPT/HCPCS: 77063; 77067

== ENCOUNTER → 2024-01-16 10:00 | Outpatient (BNV) | payer OTHER, SELFPAY | PROVIDERS: PCP Nurse Practitioner Family; Visit Provider Internal Medicine | DX: Z12.31 Encounter for screening mammogram for malignant neoplasm of breast (principal) | CPT/HCPCS: 77063; 77067 ==

== ENCOUNTER 2025-01-28 09:46 | Outpatient (REF) | payer OTHER, SELFPAY ==
--- NOTE | ~2025-01-28 | MM_ITS ---
EXAMINATION: MM SCREENING DIGITAL BREAST TOMOSYNTHESIS, BILATERAL CLINICAL INFORMATION: Screening. Asymptomatic. COMPARISON: Mammography: Comparison is made with available priors TECHNIQUE: Digital breast mammography with tomosynthesis is performed in both the craniocaudal and mediolateral oblique views along with computer-aided detection (CAD). FINDINGS: There are scattered areas of fibroglandular density. There are no significant masses, abnormal calcifications, or other abnormalities. MM/MM tomosynthesis screening BI IMPRESSION: No mammographic evidence of malignancy. ASSESSMENT: BI-RADS Category 1: Negative RECOMMENDATION: Routine annual mammography screening. 1 year F/U This examination should not preclude the clinical evaluation of a suspicious palpable abnormality. This patient's information was entered into a reminder system with a target due date for their next mammogram. Electronically signed by: Patricia Brand DO 01/31/2025 10:42 AM DEXTER
--- OUTSIDE RECORDS SUMMARY | 2025-01-28 09:51 | XMS_ITS | Clinical Summary ---
Author Organization [facility] Address [address] [facility] [address] [place] [phone] Phone Care Team Providers Care Assembler Brazer Name Role Phone Jaymie Mireles NP Primary Care Provider + Allergies No known active allergies Medications lisinopril (PRINIVIL,ZESTRIL) 5 MG tablet Take 1 tablet by mouth every morning. 05/20/19 23 Active Lactobacillus acidoph-L.bulgar (FLORANEX) 1 million cell Tab TAKE 1 TABLET BY MOUTH TWICE A DAY NOT COVERED 07/08/19 23 Active insulin glargine (LANTUS SOLOSTAR U-100 INSULIN) 100 unit/mL (3 mL) InPn injection pen 04/02/19 23 Active therapeutic multivitamin tablet Take 1 tablet by mouth daily. Active cranberry fruit 400 mg Tab Take 400 mg by mouth daily. Active BD ULTRA-FINE MINI PEN NEEDLE 31 gauge x 3/16 Ndle Inject 1 each under the skin 3 (three) times a day before meals. 03/16/19 24 Active aspirin 81 mg chewable tablet Take 81 mg by mouth daily. Active GVOKE PFS 1-PACK SYRINGE 1 mg/0.2 mL subcutaneous syringeIndications: Type 1 diabetes mellitus with microalbuminuria INJECT 0.2 ML (1 MG TOTAL) UNDER THE SKIN ONCE NEEDED FOR LOW BLOOD SUGAR. 0.4 mL 1 11/23/19 24 Active OMNIPOD 5 G6-G7 PODS, GEN 5, CrtgIndications:Typ e 1 diabetes mellitus with diabetic polyneuropathy INJECT 1 APPLICATION UNDER THE SKIN EVERY OTHER DAY. 15 each 11 01/20 25 Active FREESTYLE LITE Strp stripsIndications:T ype 1 diabetes mellitus with diabetic polyneuropathy USE 1 EACH 4 TIMES A DAY BEFORE MEALS AND AT NIGHTLY 300 strip 3 07/14/19 25 Active rosuvastatin (CRESTOR) 20 MG tabletIndications:T ype 1 diabetes mellitus with diabetic polyneuropathy Take 1 tablet (20 mg total) by mouth every morning. 90 tablet 3 11/01/19 25 Active blood-glucose sensor (DEXCOM G7 SENSOR) DeviIndications:Typ e 1 diabetes mellitus with diabetic polyneuropathy 1 Application by Miscellaneous route Every 10 Days. 11/01/19 25 Active NOVOLOG U-100 INSULIN ASPART 100 unit/mL injection vialIndications:Typ e 1 diabetes mellitus with diabetic polyneuropathy Up to 80 units daily. Insulin pump 80 mL 1 01/07/20 25 Active NOVOLOG U-100 INSULIN ASPART 100 unit/mL injection vialIndications:Typ e 1 diabetes mellitus with diabetic polyneuropathy Up to 80 units daily. 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 Hemoglobin A1c has improved to 10.3% from 13.4%. Presently she needs more basal insulin. She has elevated fasting glucose levels will increase the basal rate to 0.95 units from 0.85 units. I am setting a new basal range from 12 AM to 8 AM. From 8 AM to 12 AM she will continue the same dose 0.85 units/h. She also has postprandial hyperglycemia I recalculated carbohydrate ratio at 13 and sensitivity of 52 which are lower than what she is currently using so this will give her more insulin prior to meals and to help with postprandial hyperglycemia. Her target glucose is 130 mg/dL we will keep that the same for now. She should return for follow-up in 3 months repeat hemoglobin A1c and I will request a comprehensive level and urine microalbumin. Assessment & Plan (08/11/2022 12:22 PM EDT): Uncontrolled. Hemoglobin A1c today on 08/11/2022 is 11.3%. Since the patient is having hypoglycemia overnight she does not have a snack I asked her to decrease the Lantus to 20 units. It seems to be a lot of insulin for type I diabetic. I changed her correction scale to start insulin administration for glucose 70-100 = 1 unit increasing by 1 unit every 50 mg/dL. I refer the patient to see the diabetic educators so that she can start nutrition counseling. She needs to learn how to carbohydrate count if she wants to be on the insulin pump. I think that maybe she just needs a few more lessons because she was doing this in the past. I will request for the [employer] 2 this has to go through the DME. Also the OmniPod Dash which she has used in the past. I will send a message to the medical reviewer to inquire but the patient also needs to find out which is her [employer] company that we need to order this through. In fact she should give them my name and fax number. Hyperlipidemia LDL goal <100 08/11/2022 Assessment & Plan (10/31/2024 9:35 AM EDT): Uncontrolled based on last LDL of 87 mg/dL. She is using rosuvastatin. The guidelines have changed to the LDL should now be less than 70 mg/dL. She will repeat lipid panel today if she is fasting. Will continue rosuvastatin at the current dose but if LDL is still elevated above 70 mg she may benefit from increasing rosuvastatin. Assessment & Plan (09/03/2023 11:35 AM EDT): Controlled. LDL 87 mg/dL continue rosuvastatin 20 mg no changes required. Assessment & Plan (05/22/2023 12:29 PM EDT): Controlled. LDL 87 mg/dL continue rosuvastatin 20 mg Assessment & Plan (02/12/2023 2:32 PM EST): Controlled. LDL 87 mg/dL continue rosuvastatin 20 mg no changes required. Assessment & Plan (11/13/2022 4:32 PM EDT): She forgot to repeat lipid panel she is on rosuvastatin 20 mg LDL in the past was elevated at 140. I asked her to repeat it and if is still uncontrolled we may have to increase the dose to 40 mg of rosuvastatin. She should try to get this done fasting. Assessment & Plan (08/11/2022 12:19 PM EDT): Uncontrolled. LDL 140 mg/dL. She is on rosuvastatin 20 mg. She believes this 40 mg asked her to check her medications. She should repeat her lipid panel in 3 months this to be done fasting. Type 1 diabetes mellitus with diabetic polyneuro santhosh 08/11/2022 Assessment & Plan (10/31/2024 9:36 AM EDT): Uncontrolled. Hemoglobin A1c 9.4%. She has very high glucose variability. Her glycemic control has decreased or worsen due to the fact that she did not have continuous glucose sensors. She had less awareness of how her glucose were responding to food exercise etc. Also her last time to care for herself with new employment. Lastly she has been quite stressed because she did lose her medical insurance. So this point we will continue current management and requested a new CGM and hopefully that will be an improvement. I do not think it is becker to make any changes now. We should see how she responds with the new CGM's and take it from there. She will return for follow-up in 3 months. She is going to repeat a hemoglobin A1c prior to the follow-up visit in 3 months. Assessment & Plan (09/03/2023 11:51 AM EDT): Uncontrolled. Hemoglobin A1c 8.8%. She needs more bolus insulin because she is basal heavy. I will decrease the carbohydrate ratio from 12-10 and decrease the sensitivity from 50-45. I would not make any changes to her basal settings. She should repeat hemoglobin A1c in 3 months return for follow-up then. Assessment & Plan (05/22/2023 12:31 PM EDT): Improved control. Hemoglobin A1c 8.7% At this point will increase the basal insulin rate to 0.95 from 8 AM to 12 AM. Will decrease the carbohydrate ratio to 12 and sensitivity to 50. She needs to bolus 3 times a day sometimes she only boluses once a day then she will have better improvement of glycemic levels. Assessment & Plan (01/20/2023 11:08 AM EST): Control was improving based upon the patient's dexcom G6 and omnipod 5 download. Since her dexcom has her control is not as optimal. Adjusted her basal rate from 0.6 units an hour to 0.85 units an hour to help with the higher glucose levels throughout the day. Will adjust her insulin to carb ratio to 1:14 from 1:15.5. She will make sure she is entering her finger sticks into the pump. Discussed calling dexcom customer service to see if they can send her a sensor to hold her over while she waits for the insurance approval. Will send a prescription for testing supplies as well., Continue to work on eating healthy. Assessment & Plan (01/06/2023 5:24 PM EST): She was walked through setting up her omnipod account and her [employer] account. She is now connected to the office [employer] account allowing for remote downloading of her device. Once this was set up, created her insulin delivery profile. Used the omnipod initial insulin delivery calculations to create her settings. As she frequent episodes of hypoglycemia, will go with the more reserved dosing of weight based rather than using 75% of what she is currently using. Her basal rate was set at 0.60 units per hour. Her insulin to carb ratio calculated to 1 unit for every 15.5 grams of carbs. Her correction factor is 1 units for every 59 points in glucose. Will set her target glucose to 130 and correct above 150. She previously used the old omnipod pump without any issues, she set up and started the new pod without any issues. She was walked through the menu of the omnipod 5 insulin pump. Connected her dexcom transmitter number to her PDM. She just started a new sensor before her appointment so she still had time before being able to receive dexcom readings to her PDM. She feels comfortable with placing new pods. She will message if she has any issues managing her glucose levels or has issues with her insulin pump Assessment & Plan (11/13/2022 4:47 PM EDT): Uncontrolled hemoglobin A1c increased from 11.3 to 13.4%. Unfortunately the patient is only checking for the most part only twice a day. Sometimes she only checks once a day and there are times that she checks 3 times a day. This is very rare. She is only administering insulin twice a day for the most part usually breakfast and bedtime. She is not bolusing for lunch and dinner for the most part. Then she ends up bolusing at bedtime with Humalog to correct the high glucose level even though she is not eating which results in hypoglycemia in the morning. At this point I told her that she needs to try to bolus for all 3 meals and check her glucose levels. I know that this is difficult for her. I told her that if she is about to eat and she does not feel symptoms of hypoglycemia she should at least administer 1 or 2 units of Humalog. It is possible that she may be basal heavy but I am reluctant to make any changes to her regimen because obviously she is not administering Humalog at all so I do not want to decrease the basal insulin. If she started to administer Humalog during the day and we find that she is going low overnight not from administering Humalog at bedtime then I will likely decrease the basal insulin. I prescribed a Dexcom G6 which is 9 to the OmniPod 5. The OmniPod 5 was sent to [employer] and so was the Dexcom G6 she needs to inquire with [facility] about these products. If she requires prior authorization she needs to let us know. At this point we will continue the current regimen.The patient has current severe hypoglycemia. There is significant concern hypoglycemic seizures which can be potentially fatal. I reemphasized to the patient that the use of insulin is high risk therapy that requires intensive monitoring for toxic effects (hypoglycemia, metabolic decompensation) due to the narrow therapeutic index of the medication and other factors (such as age, acute renal insufficiency, variable appetite and use of steroids) therefore close monitoring of blood sugar with regular review is paramount in the safe use of this medication. Encounters Date Type Department Care Team Description 01/06/2025 Refill [facility] [address] [place] [address] [place] [address] Ernesto Barger DO Medication Problem 11/03/2024 Refill [facility] [address] [place] [address] Ernesto Barger DO Med Change Request 11/03/2024 [facility]ill [facility] [address] [place] [address] [place] [address] Ernesto Barger DO Medication Problem (/NOVOLOG U-100 INSULIN ASPART 100 unit /) 10/31/2024 9:56 AM EDT - 10/31/2024 11:59 PM EDT Hospital Encounter [facility] [address] [place] [address] Ernesto Barger DO Discharge Disposition: Home or Self Care 10/31/2024 9:10 AM EDT Office Visit [facility] [address] [place] [address] [place] [address] Ernesto Barger DO Type 1 diabetes mellitus with diabetic polyneuropathy (Primary Dx); Type 1 diabetes mellitus with microalbuminuria; Type 1 diabetes mellitus with 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; Hyperlipidemia LDL goal <70 from Last 3 Months Immunizations Immunization Administration Dates Next Due COVID-19 (Pre-12/15) Moderna Vaccine, Bivalent 6mo+ 12/27/2021 COVID-19 (Pre) Moderna Vaccine, mRNA, PF 06/21/2021,02/05/2021 COVID-19 (Pre-12/15) Pfizer Vaccine, mRNA, PF 06/22/2020,06/01/2020 INFLUENZA, SPLIT VIRUS, TRIV ALENT W/ PRESERVATIVE IM 11/09/2021,10/17/2019,10/16/2018,10/29,09/28/2016,11/30/2015,11/04/2014 ,03/02/2014,02/18/2012 Influenza, whole 10/23/2019 Pneumococcal conjugate PCV20 05/18/2021 Pneumococcal polysaccharide PPSV23 02/18/2012 Tdap 11/09/2021,03/02/2012,05/31/2009 Zoster recombinant 10/29/2017,08/20/2017 Family History Medical History Relation Comments Coronary artery disease Father Pancreatic cancer Mother Relation Status Comments Father Mother Social History Tobacco Use Types Packs/Day Years Used Date Smoking Tobacco: Never Smokeless Tobacco: Never Tobacco Cessation:Counseling Given: Not Answered Alcohol Use Standard Drinks/Week Comments Yes 0 (1 standard drink = 0.6 oz pur e alcohol) Social Education Answer Date Recorded Are you interested in more education? Not on kerwin e 06/21/2022 Are you concerned about learning? Not on file 06/21/2022 No 06/21/2022 No 06/21/2022 Digital Access Answer Date Recorded No 07/22/2022 No 07/22/2022 Reliable internet access at home? Not on file 07/22/2022 Device with a working camera? Not on file Comments Unknown Sex and Gender Information Value Date Recorded Sex Assigned at Not on file Legal Sex Female 2:17 PM EST Gender Identity Not on file Sexual Orientation Not on file Last Filed Vital Signs Vital Sign Reading Time Taken Comments Blood Pressure 132/80 10/31/2024 9:03 AM EDT Pulse 84 10/31/2024 9:03 AM EDT Temperature 36.5 C (97.7 F) 01/20/2023 10:28 AM EST Respiratory Rate - - Oxygen Saturation 99% 09/03/2023 11:27 AM EDT Inhaled Oxygen Concentration - - Weight 70.8 kg (156 lb) 10/31/2024 9:03 AM EDT Height 154.9 cm (5' 0.98 ) 10/31/2024 9:03 AM ED T Body Mass Index 29.5 10/31/2024 9:03 AM EDT Plan of Treatment Upcoming Encounters Date Type Department Care Team (Late st Contact Info) Description 04/13/2025 9:00 AM EST Nutrition [facility] [address] [facility] [place] [phone] Maisha Tyson, TANA [address] [facility], [address] [place] [address] 04/27/2025 8:30 AM EST Office Visit [facility] [address] [place] [address] Ernesto Barger DO [address] [place] [address] 06/16/2025 10:40 AM EDT [facility] Visit [facility] [address] [place] [address] Calista Scott PA-C [address] [place] [address] [email or web address] Health Maintenance Due Date Last Done Comments DEPRESSION SCREENING 1973 HEPATITIS C SCREENING 08/02/1979 HIV ONE-TIME SCREENING (18-65 YEARS) 08/02/1979 PAP SMEAR 1982 MAMMOGRAM 2001 COLOGUARD 2006 COLONOSCOPY 2006 COLORECTAL CANCER SCREENING 2006 FIT TEST 2006 FOBT 2006 SIGMOIDOSCOPY 2006 VIRTUAL COLONOSCOPY 2006 RSV VACCINE (1 - Risk 50-74 years 1-dose series) 08/02/2011 DIABETIC EYE EXAM 08/11/2022 INFLUENZA VACCINE (#1) 2024 2, 10/23/2019, 10/17/2019, Additional history exists COVID-19 VACCINE ( season) 2024 12/27/2021, 06/21/2021, 02/05/2021, Additional history exists HEMOGLOBIN A1C 01/30/2025 10/31/2024, 01/0 04/2024, 12/10/2023, Additional history exists BLOOD PRESSURE 04/30/2025 10/31/2024 CREATININE LEVEL 10/31/2025 10/31/2024, 05/08/2023 POTASSIUM LEVEL 10/31/2025 10/31/2024, 05/08/2023 Adult Td,Tdap Booster 11/10/2031 11/09/2021 , 03/02/2012, 05/31/2009 ZOSTER VACCINES Completed 10/29/2017, 08/20/2017 PNEUMOCOCCAL VACCINES (50+ years) Completed 05/18/2021, 02/18/2012 SMOKING STATUS SCREENING (Once After 26 Yrs) Completed 09/03/2023 HEPATITIS A VACCINES Aged Out No long er eligible based on patient's age to complete this topic HIB VACCINES Aged Out No longer eligi ble based on patient's age to complete this topic MENINGOCOCCAL VACCINES (ACWY) Aged Out No longer eligible based on patient's age to complete this topic MENINGOCOCCAL VACCINES (B) Aged Out N o longer eligible based on patient's age to complete this topic Medical Devices Not on file Procedures Procedure Name Priority Date/Time Associated Diagnosis Comments MICROALBUMIN/CREATINI NE RATIO, RANDOM URINE Routine 10/31/2024 10:13 AM EDT Type 1 diabetes mellitus with diabetic polyneuropathy CBC Routine 10/31/2024 10:13 AM EDT Type 1 diabetes mellitus with diabetic polyneuropathy COMPREHENSIVE METABOLIC PANEL (CMP) Routine 10/31/2024 10:13 AM EDT Type 1 diabetes mellitus with diabetic polyneuropathy LIPID PANEL Routine 10/31/2024 10:13 AM EDT Type 1 diabetes mellitus with diabetic polyneuropathy POCT HEMOGLOBIN A1C Routine 10/31/2024 9 :37 AM EDT Type 1 diabetes mellitus with diabetic polyneuropathy from Last 3 Months Results * (ABNORMAL) Comprehensive metabolic panel (10/31/2024 10:13 AM EDT) SODIUM 139 133 - 146 mmol/L [facility] POTASSIUM 4.5 3.3 - 5.1 mmol/L [facility] CHLORIDE 102 96 - 108 mmol/L [facility] CO2 26 21 - 35 mmol/L [facility] BUN 12 6 - 19 mg/dL [facility] CREATININE 0.70 0.5 - 1.5 mg/dL [facility] GLUCOSE 147(H) 70 - 99 mg/dL [facility] ALBUMIN 4.6 3.9 - 4.8 g/dL [facility] TOTAL PROTEIN 7.8 6.5 - 8.0 g/dL [facility] CALCIUM 9.6 8.4 - 10.3 mg/dL [facility] ALKALINE PHOSPHATASE 90 39 - 117 U/L [facility] TOTAL BILIRUBIN 0.3 0.0 - 1.2 mg/dL [facility] AST 23 0 - 37 U/L [facility] ALT 22 0 - 40 U/L [facility] GLOBULIN 3.2 1 - 4.8 g/dL [facility] EGFR 97 >59 mL/min/1.7 3m2 [facility] Comment:Estimated glomerular filtration rate calculated using the CKD-EPI refit equation. ANION GAP 16 10 - 20 mmol/L [facility] Blood 10/31/2024 10:1 3 AM EDT 10/31/2024 10:18 AM EDT Ernesto Barger LAB BLOOD BKR ORDERABLES Final R esult Performing Organization Address City/[facility] Co de Phone Number [address] [address] * Microalbumin/creatinine ratio, random urine (10/31/2024 10:13 AM EDT) URINE MICROALBUMIN <1.2 0 - 2.3 mg/dL [facility] URINE CREATININE 77 mg/dL [facility] MICROALB/CRE RATIO NOT CALCULATED 0 - 20 mg/g Cre [facility] Comment:due to Microalbumin <1.2 Urine (Urine) 10/31/2024 10: 13 AM EDT 10/31/2024 10:18 AM EDT Ernesto Barger DO LAB URINE ORDERABLES Final Resul t Performing Organization Address City/[facility]/ZIP Co de Phone Number [address] [address] * CBC (10/31/2024 10:13 AM EDT) WBC 5.59 4.00 - 11.00 K/uL [facility] RBC 4.78 4.00 - 5.20 M/uL [facility] HGB 14.0 12.0 - 16.0 g/dL [facility] HCT 42.3 36.0 - 46.0 % [facility] PLT 307 150 - 450 K/uL [facility] MCV 88.5 80.0 - 100.0 fL [facility] MCH 29.3 27.0 - 31.0 pg [facility] MCHC 33.1 32.0 - 36.0 g/dL [facility] RDW 12.3 11.5 - 14.5 % [facility] MPV 10.2 8.4 - 12.0 fL [facility] NRBC 0.00 0.00 /100 WBCs [facility] ABSOLUTE NRBC 0.00 0.00 K/uL [facility] Blood 10/31/2024 10:1 3 AM EDT 10/31/2024 10:18 AM EDT Ernesto Barger DO LAB BLOOD BKR ORDERABLES Final R esult [facility] [address] [place] [address] * (ABNORMAL) Lipid panel (10/31/2024 10:13 AM EDT) HDL 93 mg/dL [facility] Comment: Interpretation <40 mg/dL: Low HDL cholesterol (major risk factor for CHD) Greater than or equal to 60 mg/dL: High HDL cholesterol ( negative risk factor for CHD) HDL - cholesterol is affected by a number of factors, e.g. smoking, excerise, hormones, sex and age. CHOLESTEROL 188 0 - 240 mg/dL [facility] TRIGLYCERIDES 74 30 - 160 mg/dL [facility] LDL 80 50 - 129 mg/dL [facility] Comment: LDL levels in terms of risk for coronary heart disease: <100 mg/dL: Optimal 100-129 mg/dL: Near or above optimal 130-159 mg/dL: Borderline high 160-189 mg/dL: High >190 mg/dL: Very High CARDIAC RISK RATIO 2.0(L) 3.3 - 4.4 [facility] Blood 10/31/2024 10:1 3 AM EDT 10/31/2024 10:18 AM EDT us Ernesto Barger DO LAB BLOOD BKR ORDERABLES Final R esult [facility] [address] [place] [address] * (ABNORMAL) POCT Hemoglobin A1c (10/31/2024 9:37 AM EDT) Hemoglobin A1c 9.4(A) 4.2 - 5.6 % Other 10/31/2024 9:37 AM EDT us Ernesto Barger DO LAB POCT ENTER/EDIT ORDERABLES F inal Result from Last 3 Months Insurance PEN ARGYLENSE NON NSPG PCP [place] [employer] NON NSPG PCP [place] [employer] PEN ARGYLENSE NON NSPG PCP [place] [employer] NON NSPG PCP S[facility] [employer] [facility] NON NSPG PCP [place] [employer] Care Teams Assembler Brazer Relationship Specialty Start Date End Date Jaymie Mireles NP [address] [place] [address] PCP - General Nurse Practitioner 04/30/22 Additional Source Comments The information contained in this document represents components of the legal health record. It is not the complete legal health record.[facility]
--- OUTSIDE RECORDS SUMMARY | 2025-01-28 09:51 | XMS_ITS | Encounter Summary ---
Author Organization [facility] Address [address] [place] [phone] Phone Care Team Providers Care Human Resources Compensation Analyst Name Role Phone Jaymie Mireles QUILTING SUPERVISOR Primary Care Provider + Reason for Visit * Reason Comments Med Change Request Encounter Details Date Type Department Care Team (Late st Contact Info) Description 11/03/2024 Refill [facility] [address] [place] [address] Ernesto Barger, DO [address] [place] [address] [email or web address] Med Change Request Social History Tobacco Use Types Packs/Day Years Used Date Smoking Tobacco: Never Smokeless Tobacco: Never Alcohol Use Standard Drinks/Week Comments Yes 0 [...] on file Sexual Orientation Not on file documented as of this encounter Plan of Treatment Upcoming Encounters Date Type Department Care Team (Late st Contact Info) Description 04/13/2025 9:00 AM EST Nutrition [facility] [address] [place] [address] Maisha Tyson LDN [address] [facility] [place] [address] 04/27/2025 8:30 AM EST Office Visit [facility] [address] [place] [address] Ernesto Barger DO [address] [place] [address] 06/16/2025 10:40 AM EDT Office Visit [facility] [address] [place] [address] Calista Scott PA-C [address] [place] [address] documented as of this encounter Visit Diagnoses Diagnosis Type 1 diabetes mellitus with diabetic polyneuropathy documented in this encounter Care Teams Human Resources Compensation Analyst Relationship Specialty Start Date End Date Jaymie Mireles NP [address] [place] [address] PCP - General Nurse Practitioner 04/30/22 documented as of this encounter Additional Source Comments The information contained in this document represents components of the legal health record. It is not the complete legal health record.[facility]
== END 2025-01-28 09:47 | disposition home or self-care (01) ==
LOC: HO.MAMMO 09:46
DX: Z12.31 Encounter for screening mammogram for malignant neoplasm of breast (principal)
CPT/HCPCS: 77063; 77067

== ENCOUNTER → 2025-01-28 09:49 | Outpatient (BNV) | payer OTHER, SELFPAY | PROVIDERS: Visit Provider Internal Medicine | DX: Z12.31 Encounter for screening mammogram for malignant neoplasm of breast (principal) | CPT/HCPCS: 77063; 77067 ==